=== PATIENT | male | born 1930 | race Caucasian/White ===

== ENCOUNTER 2016-12-01 01:03 | Inpatient (IN) ==
[2016-12-01] MEDS ORDERED: IOPAMIDOL 100 ML BOTTLE IV ONE (01:04)
[2016-12-01] MEDS ORDERED: 0.9 % SODIUM CHLORIDE 1,000 ML IV ONE (01:57)
[2016-12-01] MEDS ORDERED: HYDROmorphone 2 MG/ML SYRINGE IV PRN ×3 (01:59→07:21)
[2016-12-01] MEDS ORDERED: ONDANSETRON 4 MG/2 ML VIAL IV PRN ×2 (01:59→07:21)
--- NOTE | 2016-12-01 01:59 | Emergency Department Note ---
Fall HPI - General Chief Complaint: Fall Stated Complaint: fall Time Seen by Provider: 12/01/16 01:54 Source: family Mode of arrival: wheelchair - History of Present Illness HPI Narrative: Patient presents with family. Lives independently, usually cares for himself quite well. Seen 2 days ago after a fall, apparently tripped over some laundry at home, fall to his right shoulder. X-rays at that time unremarkable. Patient then found down by family, unclear length of time later in the day. Patient had vomited and may "quite a mess". Seemed less of himself, slightly confused, and generally weak. Symptoms have continued and family brings her in now, increasing right shoulder pain, generalized weakness, unable to care for himself. Review of systems, patient states slightly short of breath without chest pain. Nausea states "I don't want to eat anything and I feel dry". Denies pleurisy, fevers or chills. Denies abdominal pain. Per family seems to be very uncomfortable standing up with reports of pain diffusely but unable to localize. Family was particularly concerned today when his hands seemed cold and blue. No pain reported - Related Data Home Medications Medication Instructions Recorded Confirmed Allopurinol BID 08/29/15 08/29/15 Finasteride 5 mg PO DAILY 08/29/15 12/01/16 LORazepam 0.5 mg PO DAILY PRN 08/29/15 12/01/16 Mirtazapine 7.5 mg PO HS 08/29/15 12/01/16 Nifedipine ER 30 mg PO DAILY 08/29/15 12/01/16 Pradaxa 150 mg PO BID 08/29/15 12/01/16 Sertraline 75 mg PO DAILY 08/29/15 12/01/16 Sotalol 40 mg PO Q12 08/29/15 12/01/16 Allopurinol [Zyloprim] 100 mg PO BID 12/01/16 12/01/16 Cholecalciferol (Vitd3)/Vit K2 [D3 1 each PO DAILY 12/01/16 12/01/16 + K2 Dots 1,000 Units Tab] Secor-3/Dha/Epa/Fish Oil [Secor 3 12/01/16 500 Softgel] Vit A/Vit C/Vit E/Zinc/Copper 1 each PO DAILY 12/01/16 12/01/16 [Icaps Areds Softgel] Previous Rx's Medication Instructions Recorded HYDROcodone/APAP 5/325MG [[place] 1 tab PO Q4HP PRN #14 tablet 11/29/16 5/325Mg] Allergies Allergy/AdvReac Type Severity Reaction Status Date / Time No Known Drug Allergies Allergy Verified 11/29/16 10:08 Review of Systems All systems ED: reviewed and negative except as stated. Constitutional: Reports: weakness. Denies: fever, chills Eyes: Denies: eye discharge ENT ED: Denies: epistaxis Cardiovascular: Reports: dyspnea on exertion. Denies: chest pain, palpitations Respiratory: Denies: cough Gastrointestinal: Reports: nausea, vomiting. Denies: diarrhea Neurological: Reports: weakness, confusion, abnormal gait Fall PMH - Past Medical History Medical history: Reports: atrial fibrillation, other (chronic anticoagulation) Surgical history ED: Reports: non-contributory (unable to obtain) Family history: Reports: non-contributory - Social History smoking status: Never smoker Alcohol use: Reports: None Drug use: Reports: none Physical Exam - General General appearance: lethargic, other (weak, circumferential, unable to give complete history details) - Head Head exam: atraumatic, normocephalic - Eye Eye exam: Present: normal appearance, PERRL, EOMI - ENT ENT exam: mucous membranes dry - Neck Neck exam: Present: trachea midline, tenderness (tender base of skull). Absent : lymphadenopathy - Chest Chest inspection: Present: symmetric chest wall rise - Respiratory Respiratory exam: Present: normal lung sounds bilaterally. Absent: respiratory distress - Cardiovascular Cardiovascular exam: Present: regular rate, normal rhythm, other (very distant heart sounds). Absent: systolic murmur - Abdominal Exam Abdominal exam: Present: soft. Absent: tenderness, organomegaly - Extremities Exam Extremities exam: Present: normal inspection, other (enerally weak; significant pain external palpation right shoulder. Pain on range of motion both flexion and abduction and rotation right shoulder) - Back Exam Back exam: Present: other (significant kyphosis). Absent: CVA tenderness (R), CVA tenderness (L), paraspinal tenderness - Neurological Exam Neurological exam: Present: other (slowed motor and mentation) - Skin Skin exam: Present: other (cool hands, slow cap refill) Course - Reevaluation(s) Reevaluation #1: patient cooperative, no hypotension Time: 04:59 Vital Signs Temperature 97.8 F 12/01/16 01:04 Pulse Rate 86 12/01/16 01:04 Respiratory Rate 18 12/01/16 01:04 Blood Pressure 117/72 12/01/16 01:04 Pulse Oximetry (%) 94 12/01/16 01:04 Temperature 97.8 F 12/01/16 01:04 Pulse Rate 76 12/01/16 03:51 Respiratory Rate 18 12/01/16 03:51 Blood Pressure 114/79 12/01/16 03:51 Pulse Oximetry (%) 92 12/01/16 03:51 Fall - Medical Records Medical records reviewed: Yes I reviewed the patient's medical records. negative x-rays from 2 days ago - Lab Data Result diagrams: 12/01/16 02:00 12/01/16 02:00 Lab Results 12/01/16 12/01/16 12/01/16 Range/Units 02:00 02:00 02:00 WBC 22.5 H (4.5-11.0) K/mcL RBC 4.32 L (4.50-5.90) M/mcL Hgb 14.3 (13.5-16.5) g/dL Hct 44.1 (41.0-55.0) % POC Hct 43.0 (41.0-55.0) % MCV 102.1 H (80.0-100.0) fL MCH 33.2 (26.0-34.0) pg MCHC 32.5 (31.0-36.0) g/dL RDW 14.0 (11.5-14.5) % Plt Count 237 (140-440) K/mcL MPV 9.9 (7.4-10.4) fL Gran % 93.1 H (38.0-78.0) % Lymph % (Auto) 4.7 L (15.5-49.0) % [place] % (Auto) 2.2 (1.0-9.0) % Eos % (Auto) 0 (0.0-7.0) % Baso % (Auto) 0 (0.0-2.0) % Gran # 21.0 H (1.8-8.0) K/mcL Lymph # 1.1 L (1.5-4.8) K/mcL [place] # 0.5 (0.1-0.9) K/mcL Eos # 0 (0.0-0.7) K/mcL Baso # 0 (0.0-0.3) K/mcL PT (11.9-14.5) sec INR (0.9-1.1) VBG Lactic Acid 3.1 H (0.5-2.2) mmol/L POC Sodium 136 (133-145) mmol/L Sodium 135 (133-145) mmol/L POC Potassium 4.0 (3.3-5.1) mmol/L Potassium 3.9 (3.3-5.1) mmol/L POC Chloride 101 (96-108) mmol/L Chloride 97 (96-108) mmol/L Carbon Dioxide 22 (22-30) mmol/L POC Total CO2 22 (22-30) mmol/L Anion Gap 16.0 (8-16) POC BUN 66 H (8-23) mg/dl BUN 58 H (8-23) mg/dl Creatinine 1.6 H (0.7-1.2) mg/dl POC Creatinine 1.4 H (0.7-1.2) mg/dl GFR Calculation 38 Glucose 154 H (70-105) mg/dL POC Glucose 150 H (70-105) mg/dL Calcium 8.6 (8.6-10.4) mg/dl POC WB Ioniz Calcium 0.97 L (1.16-1.32) mmol/L Total Bilirubin 2.3 H (0.0-1.0) mg/dL AST 652 H (0-37) U/l ALT 591 H (0-40) U/l Alkaline Phosphatase 85 (39-117) U/L Total Protein 7.0 (5.9-8.4) gm/dL Albumin 3.1 L (3.2-5.2) gm/dL Globulin 3.9 H (2.2-3.7) gm/dL Albumin/Globulin Ratio 0.8 L (1.0-2.3) TSH 0.95 (0.27-5.01) uIU/ml 12/01/16 Range/Units 02:00 WBC (4.5-11.0) K/mcL RBC (4.50-5.90) M/mcL Hgb (13.5-16.5) g/dL Hct (41.0-55.0) % POC Hct (41.0-55.0) % MCV (80.0-100.0) fL MCH (26.0-34.0) pg MCHC (31.0-36.0) g/dL RDW (11.5-14.5) % Plt Count (140-440) K/mcL MPV (7.4-10.4) fL Gran % (38.0-78.0) % Lymph % (Auto) (15.5-49.0) % [place] % (Auto) (1.0-9.0) % Eos % (Auto) (0.0-7.0) % Baso % (Auto) (0.0-2.0) % Gran # (1.8-8.0) K/mcL Lymph # (1.5-4.8) K/mcL [place] # (0.1-0.9) K/mcL Eos # (0.0-0.7) K/mcL Baso # (0.0-0.3) K/mcL PT 27.1 H (11.9-14.5) sec INR 2.4 H (0.9-1.1) VBG Lactic Acid (0.5-2.2) mmol/L POC Sodium (133-145) mmol/L Sodium (133-145) mmol/L POC Potassium (3.3-5.1) mmol/L Potassium (3.3-5.1) mmol/L POC Chloride (96-108) mmol/L Chloride (96-108) mmol/L Carbon Dioxide (22-30) mmol/L POC Total CO2 (22-30) mmol/L Anion Gap (8-16) POC BUN (8-23) mg/dl BUN (8-23) mg/dl Creatinine (0.7-1.2) mg/dl POC Creatinine (0.7-1.2) mg/dl GFR Calculation Glucose (70-105) mg/dL POC Glucose (70-105) mg/dL Calcium (8.6-10.4) mg/dl POC WB Ioniz Calcium (1.16-1.32) mmol/L Total Bilirubin (0.0-1.0) mg/dL AST (0-37) U/l ALT (0-40) U/l Alkaline Phosphatase (39-117) U/L Total Protein (5.9-8.4) gm/dL Albumin (3.2-5.2) gm/dL Globulin (2.2-3.7) gm/dL Albumin/Globulin Ratio (1.0-2.3) TSH (0.27-5.01) uIU/ml - Radiology Data Radiology results reviewed: Yes I reviewed the patient's radiology results. extensive CTs performed due tofall, incomplete history, diffuse , pain on palpation C-spine, concurrent Pradaxa therapy Head CT with old right frontal infarct, o acute injury or finding C-spine normal Right shoulder with rotator cuff, chronic DJD, no acute fracture chest x-ray without fracture or injury, bibasilar pneumonia abdomen and pelvis without injury or acute pathology - EKG Data EKG attestation: Yes I reviewed and interpreted this EKG. Disposition Clinical Impression: Lactic acidosis, Acute delirium, Internal derangement of right shoulder Pneumonia Qualifiers: Pneumonia type: aspiration pneumonia Aspiration pneumonia type: unspecified Laterality: bilateral Lung location: lower lobe of lung Qualified Code(s): J69.0 - Pneumonitis due to inhalation of food and vomit Summary: antibiotics initiated for enterics; additional IV fluids due to elevated lactic acidosis Disposition: Xfer As Inpt ([facility]) Condition: Fair Referrals: Tashi Pitt MD [Primary Care Provider] -
[2016-12-01] MEDS ORDERED: DEXTROSE 5%-LR 1,000 ML IV SCH (02:00)
[2016-12-01 03:08] LABS: Basophils # (Auto) 0 K/mcL (0.0-0.3); Basophils % (Auto) 0 % (0.0-2.0); Eosinophils # (Auto) 0 K/mcL (0.0-0.7); Eosinophils % (Auto) 0 % (0.0-7.0); Granulocytes % (Auto) 93.1 % (38.0-78.0); Lymphocytes # (Auto) 1.1 K/mcL (1.5-4.8); Lymphocytes % (Auto) 4.7 % (15.5-49.0); Mean Cell Volume 102.1 fL (80.0-100.0); Mean Corpuscular HGB Conc 32.5 g/dL (31.0-36.0); Mean Corpuscular Hemoglobin 33.2 pg (26.0-34.0); Monocytes # (Auto) 0.5 K/mcL (0.1-0.9); Monocytes % (Auto) 2.2 % (1.0-9.0); Platelet Count 237 K/mcL (140-440); RBC 4.32 M/mcL (4.50-5.90)
[2016-12-01 03:14] LABS: ALT/SGPT 591 U/l (0-40); Albumin 3.1 gm/dL (3.2-5.2); Albumin/Globulin Ratio 0.8 (1.0-2.3); Alkaline Phosphatase 85 U/L (39-117); Blood Urea Nitrogen 58 mg/dl (8-23)
[2016-12-01] MEDS ORDERED: LEVOFLOXACIN 750 MG/150 ML BAG IV ONE (04:44)
[2016-12-01] MEDS ORDERED: 0.9 % SODIUM CHLORIDE 1,000 ML IV SCH (05:00)
[2016-12-01 05:24] LABS: Appearance,Urine HAZY; Bacteria,Urine 0 /hpf (0); Bilirubin,Urine NEG (NEG); Color,Urine BROWN; Glucose,Urine (UA) NEGATIVE (NEG); Leukocyte Esterase,Urine NEG /uL (NEG); Mucus,Urine MOD /hpf (0); Nitrate,Urine NEG (NEG); Protein,Urine 100 mg/dL (NEG); Specific Gravity,Urine 1.023 (1.000-1.035); Urine Blood >=1.0 mg/dL (<0.03); Urine Hyaline Cast 27 /lpf (0-2); Urine RBC > 182 /hpf (0-1); Urine Squamous Epithelial Cell 0 /hpf (0-4); Urine Transitional Epi Cells < 1 /hpf (0-2); Urine WBC 5 /hpf (0-4)
[2016-12-01] MEDS ORDERED: LORAZEPAM 0.5 MG PO PRN (05:46)
[2016-12-01] MEDS ORDERED: HYDROcodone/APAP 5/325MG TABLET PO PRN (05:46)
[2016-12-01] MEDS ORDERED: NALOXONE HCL 0.4 MG/ML VIAL IV PRN (07:21)
[2016-12-01] MEDS ORDERED: POTASSIUM CHLORIDE 20 MEQ in DEXTROSE 5%-1/2NS 1,000 ML IV SCH (07:21)
[2016-12-01] MEDS ORDERED: ACETAMINOPHEN 325 MG TABLET PO PRN (07:21)
[2016-12-01] MEDS ORDERED: LORazepam 0.5 MG TABLET PO PRN (07:39)
[2016-12-01] MEDS: 0.9 % SODIUM CHLORIDE 10 ML SYRINGE IV SCH ×3 (08:03→22:25)
[2016-12-01] MEDS: 0.9 % SODIUM CHLORIDE 1,000 ML IV SCH ×3 (08:04→15:21)
[2016-12-01 08:26] LABS: Estimated Average Glucose(eAG) 123 mg/dL; Hemoglobin A1C 5.9 % HGB (4.0-6.0)
[2016-12-01] MEDS: ALBUTEROL SULFATE 2.5 MG/3 ML NEBULIZER NEB SCH ×3 (08:32→19:22)
[2016-12-01 08:57] LABS: ALT/SGPT 480 U/l (0-40); Albumin 2.6 gm/dL (3.2-5.2); Albumin/Globulin Ratio 0.7 (1.0-2.3); Alkaline Phosphatase 71 U/L (39-117); Bilirubin,Direct 1.1 mg/dL (0.0-0.3); Blood Urea Nitrogen 53 mg/dl (8-23); Gamma Glutamyl Transpeptidase 28 U/L (8-61); Magnesium 2.3 mg/dL (1.6-2.5); Phosphorous 2.8 mg/dL (2.7-4.5); Uric Acid 6.1 mg/dL (2.5-8.0)
[2016-12-01] MEDS: PIPERACILLIN SODIUM/TAZOBACTAM 3.375 GM in DEXTROSE 5% IN WATER 50 ML IV SCH ×3 (08:59→17:29)
[2016-12-01] MEDS ORDERED: [UNRECOGNIZED DRUG - OTHER] PO SCH (09:00)
[2016-12-01] MEDS ORDERED: SERTRALINE 75 MG PO SCH (09:00)
[2016-12-01] MEDS ORDERED: COPPER PO SCH (09:00)
[2016-12-01] MEDS ORDERED: AZITHROMYCIN 500 MG in DEXTROSE 5% IN WATER 250 ML IV SCH ×2 (09:00→11:10)
[2016-12-01] MEDS ORDERED: VIT K2 PO SCH (09:00)
[2016-12-01] MEDS ORDERED: CHOLECALCIFEROL PO SCH (09:00)
[2016-12-01] MEDS ORDERED: ZINC PO SCH (09:00)
[2016-12-01] MEDS ORDERED: VIT A PO SCH (09:00)
[2016-12-01] MEDS ORDERED: SOTALOL PO SCH ×2 (09:00)
[2016-12-01] MEDS ORDERED: ALLOPURINOL 100 MG TABLET PO SCH (09:00)
[2016-12-01] MEDS ORDERED: PRADAXA 150 MG PO SCH (09:00)
[2016-12-01] MEDS ORDERED: VIT E PO SCH (09:00)
[2016-12-01] MEDS ORDERED: FINASTERIDE 5 MG PO SCH (09:00)
[2016-12-01] MEDS ORDERED: [UNRECOGNIZED DRUG - OTHER] PO SCH (09:00)
[2016-12-01] MEDS ORDERED: VIT C PO SCH (09:00)
[2016-12-01] MEDS: SERTRALINE 50 MG TABLET PO SCH (09:43)
[2016-12-01] MEDS: FAMOTIDINE/PF 20 MG/2 ML VIAL IV SCH ×2 (09:44→21:14)
[2016-12-01] MEDS: DABIGATRAN ETEXILATE MESYLATE 75 MG CAPSULE PO SCH ×2 (09:44→21:11)
[2016-12-01] MEDS: VIT A,C & E/LUTEIN/MINERALS TABLET PO SCH (09:44)
[2016-12-01] MEDS: ALLOPURINOL 100 MG TABLET PO SCH ×2 (09:44→21:13)
[2016-12-01] MEDS: FINASTERIDE 5 MG TABLET PO SCH (09:53)
[2016-12-01] MEDS: VITAMIN D3 1,000 UNIT TABLET PO SCH (10:00)
--- NOTE | 2016-12-01 10:06 | Internal Med History&Physical ---
Medical - H&P: HPI Patient information: Note initiated : 12/01/16 at 10:06 am Service Date, if different from initiated Date: [] Patient: Edson Calixto 86 y/o M admitted on 12/01/16 for Fall. Chief Complaint: [] History of present illness: Mr. Calixto is a 86 year old male who normally lives alone and cares for himself. He fell 2 days ago, and landed on his right shoulder, and was seen in our emergency room X-rays were negative, and he was sent back home. Yesterday his family stopped by to check on him, and found him on the floor. He said that he tried to sit down in a chair and thinks he tilted forward and then just was too weak to get up. He has been very thirsty. Family felt he was more confused than usual. ER evaluation showed elevated lactic acid, leukocytosis, acute renal failure, elevated LFTs, and chest x-ray consistent withbilateral pneumonia. The patient reports that he was carrying in some things for his 2 days ago , and thinks he just tripped over the back and fell down. Prior to that he said he had been started on prednisonefor complaints of joint pain, as his doctor thought he might of had an acute gout flare. He otherwise denies recent fever or chills headaches or dizziness, new eye or ear symptoms, sore throat or cough. e quite adamantly denies any recent chest discomfort, heaviness, palpitations, shortness of breath or wheezing. He denies abdominal pain. He did deny nausea or vomiting or diarrhea,but his family reported to the ER that he had vomited when they found him yesterday. he is reporting significant pain in his right shoulder and his left hand and also his low back. He denies diarrhea or constipation or dysuria. past medical history: we don't appear to have much in our computer system on his old records. He reports a past history of a small stroke, and also an arrhythmia for which she required a pacemaker. he takes anticoagulants for reported history of atrial fibrillation. He is treated for depression with sertraline, although he is uncertain as to why. He says he takes mirtazapine at night to help him sleep. he likely has BPH He presumably has a history of gout. Current medications: fish oil 500 mg twice a day Vitamin D 1000 units daily Ativan 0.5 mg daily when necessary Pradaxa 150 mg twice a day Nifedipine ER 30 mg daily Sertraline 75 mg daily Proscar 5 mg daily Betapace 40 mg by mouth twice a day Mirtazapine 7.5 mg daily at bedtime [place] 5/325 one every 4 hours when necessary I vitamins one daily Allopurinol 100 mg twice a day Reported recent steroid pulse for gout. allergies: No known drug allergies. family history: His mother lived to be 94, and he does not recallmedical problems. His father after a farming accident. History of her siblings are alive and well. Social history:The patient's has dementia and lives in a nursing facility. He does not use tobacco, alcohol, drugs. He reports he has 5 children. His daughter that has his POA should arrive tomorrow. He says he does have a living will and that he wants to be a DNR candidate. Medical - H&P: Meds Home Medications Medication Instructions Recorded Confirmed Type Allopurinol [Zyloprim] 100 mg PO BID 12/01/16 12/01/16 History Dabigatran Etexilate Mesylate 150 mg PO BID 12/01/16 12/01/16 History [Pradaxa] Finasteride [Proscar] 5 mg PO DAILY 12/01/16 12/01/16 History LORazepam [Ativan] 0.5 mg PO DAILYP PRN 12/01/16 12/01/16 History Mirtazapine [Remeron] 7.5 mg PO HS 12/01/16 12/01/16 History NIFEdipine [Nifedipine ER] 30 mg PO DAILY 12/01/16 12/01/16 History Lyle-3/Dha/Epa/Fish Oil [[place] 3 1 cap PO BID 12/01/16 12/01/16 History 500 Softgel] Sertraline [Zoloft] 75 mg PO DAILY 12/01/16 12/01/16 History Sotalol [Betapace] 40 mg PO BID 12/01/16 12/01/16 History Vit A/Vit C/Vit E/Zinc/Copper 1 each PO DAILY 12/01/16 12/01/16 History [Icaps Areds Softgel] Vitamin D3 1,000 unit PO DAILY 12/01/16 12/01/16 History Allergies Allergy/AdvReac Type Severity Reaction Status Date / Time No Known Drug Allergies Allergy Verified 11/29/16 10:08 Medical - H&P: Exam - Constitutional Vitals: Temp Pulse Resp BP Pulse Ox 98.3 F 71 16 120/75 90 12/01/16 08:58 12/01/16 08:58 12/01/16 08:58 12/01/16 08:58 12/01/16 08:58 Exam: n exam,he is a pleasant elderly man. He currently appears alert and oriented. Head: Normocephalic, atraumatic. Ears: He has bilateral cerumen which makes the TM difficult to see. Eyes: PERRLA, EOMI, anicteric. pharynx: Mucosa is markedly dry. Posterior pharynx appears normal. neck: Appears supple, without obvious lymphadenopathy, JVD, thyromegaly, bruits. Cardiac exam:chest regular rate and rhythm, without obvious murmurs, rubs, gallops. lungs:Have decreased breath sounds at the bases, but otherwise are clear, without rales, rhonchi, wheezes. Abdomen: Soft and nontender with no obvious masses. Bowel sounds are active. Extremities: Show trace edema just at the ankles without cyanosis, clubbing. Neurologic: Is grossly nonfocal. Patient appears alert and oriented, and answers most questions appropriately. Skin exam: Shows no rashes or other worrisome skin lesions. Medical - H&P: Reslt - Labs CBC & Chem 7: 12/01/16 02:00 12/01/16 07:25 Labs: BMP 12/01/16 07:25 Sodium 134 Potassium 3.7 Chloride 98 Carbon Dioxide 23 BUN 53 H Creatinine 1.3 H Glucose 214 H Calcium 8.3 L Cardiac Enzymes 12/01/16 Range/Units 07:25 Troponin T 0.18 H* (0-0.03) ng/ml Liver Function 12/01/16 Range/Units 07:25 Total Bilirubin 1.9 H (0.0-1.0) mg/dL Direct Bilirubin 1.1 H (0.0-0.3) mg/dL GGT 28 (8-61) U/L AST 461 H (0-37) U/l ALT 480 H (0-40) U/l Alkaline Phosphatase 71 (39-117) U/L Albumin 2.6 L (3.2-5.2) gm/dL cBC differential shows 93% granulocytes, with 21,000 absolute neutrophil count Pro time is 27, with INR of 2.4 Lactic acid is elevated at 3.1, with follow-up lactic acid of 2.9. BNP is elevated at 19,955 EKG shows sinus rhythm, and is probably paced with underlying atrial flutter.there is no old tracing to compare. cT scan of the shoulder shows no acute fracture but does show a small remote avulsion fracture of the clavicle tip. There is mild subluxation of the before meals joint which is likely chronic. There is probablechronic rotator cuff tear , as well as severe glenohumeral and AC degeneration. cT scan of the chest, abdomen, pelvis, is verbally reported as unremarkable. CT scan of the brain shows no hemorrhage, but does show mild atrophy and chronic ischemic changes. There is also a remote infarct in the left frontal lobe about 1 cm in size, as well as right frontal lobe remote infarct and remote infarct of the right superior cerebellum. There is severe bilateral maxillary and ethmoid sinusitis cT scan of the neck shows no definite acute fractures, but does show C6-7 spondylolisthesis. Also noted is an 11 mm nodule arising from the right inferior thyroid lobe, likely a benign adenoma. Medical - H&P: A/P (1) History of CVA (cerebrovascular accident) without residual deficits Current visit: Yes Status: Acute (2) ARF (acute renal failure) Current visit: Yes Status: Acute (3) Dehydration Current visit: Yes Status: Acute (4) Atrial fibrillation and flutter Current visit: Yes Status: Acute (5) Sinusitis Current visit: Yes Status: Acute (6) Acute delirium Current visit: Yes Status: Acute (7) Lactic acidosis Current visit: Yes Status: Acute (8) Pneumonia Current visit: Yes Status: Acute (9) Shoulder sprain Current visit: No Status: Acute .#1. Infectious disease. this patient presents with sores syndrome, with leukocytosis, acute renal failure, lactic acidosis, and altered mental status. Sore seems to be most likelybilateral pneumonia, reportedly seen on chest CT. -the patient has been admitted to ICU, to continue aggressive IV fluids and empiric antibiotics. Blood and sputum cultures are pending. -he reports he did receive both a flu shot and a Pneumovax recently. -head CT suggests bilateral sinusitis. IV antibiotic should help with this. #2. Cardiac. -Although the patient denies any specific heart symptoms,he does present with elevated troponin and BNP. I discussed this case briefly with Dr. Dunham of cardiology at [facility]. He did not feel, since the patient was not having overt cardiac symptoms,that this was a recent transfer. He suggested we continue to monitor, and check an echocardiogram. -patient appears to also have a history of atrial fibrillation, and continues on pradaxa, and sotalol #3.pulmonary. -The patient is oxygenating well, and does not really report much in the way of pulmonary symptoms. #4. Neurologic. The patient denies any neurologic symptoms, other than progressive generalized weakness over the last day or so. He does have remote strokes on his head CT, and does continue on pyridoxine, for his underlying atrial fib/flutter. #5. CODE STATUS: The patient reports he would like to have a no CODE STATUS. He says his daughter who is his POA, should arrive tomorrow. He does have a living will. #6. DVT prophylaxis: Continue Pradaxa. #7. Shoulder pain, status post fall. Visible therapy evaluation. #8. dehydration. Continue IV fluids #9.GI. Family reported an episode of emesis, but the patientdoes not recall this. We will continue to follow. #10. Acute renal failure, presumably due to dehydration. Follow with hydration. #11. Presumed history of depression. Continue sertraline. I will hold mirtazapine until we are sure he is quite alert. This visit has taken approximately 75 minutes of far today, to review the patient's records, review his case with the ER M.DKrys, interview and examine him, write orders, and review his case with cardiology. Medical - H&P: Qual - Stroke Symptom Onset Unknown: No - VTE Deep Vein Thrombosis/Pulmonary Embolism Present on Admission: No
--- NOTE | 2016-12-01 11:05 | Cat Scan Report ---
CLINICAL INFORMATION: Trauma COMPARISON: Plain films 11/29/2016. TECHNIQUE: 1.25 helical slices were obtained of the right shoulder. Following reconstruction, sagittal, coronal axial reformatted images were processed and reviewed in bone and soft tissue windows FINDINGS: There is a small remote avulsion fracture of the lateral clavicle - it is minimally displaced. No acute definite fracture. Mild subluxation of the acromioclavicular joint is noted. There is also 2 cm superior subluxation of the humeral head suggesting rotator cuff tear/impingement. This is typically seen in this age group and often chronic. Severe degenerative change is noted in the glenohumeral joint. Small effusion present in the glenohumeral joint and the subacromial bursa. Soft tissues are otherwise normal. IMPRESSION: 1. No acute fracture - small remote avulsion fracture of the clavicle tip. 2. Mild subluxation acromioclavicular joint - likely chronic 3. Moderate subluxation of the glenohumeral joint typically due to rotator cuff tear and impingement. This is commonly seen in this age group and was likely not the result of recent trauma 4. Severe glenohumeral and moderate acromioclavicular degeneration Interpreted and Authenticated by: Hugh Hatch 12/01/16
--- NOTE | 2016-12-01 11:12 | Cat Scan Report ---
CLINICAL INFORMATION: Trauma COMPARISON: None. TECHNIQUE: 2.5 mm helical slices were obtained from the skull base through the superior T2 end plate, and 1.25 mm reconstructions were obtained. 2.5 mm sagittal, coronal and axial reformations were then processed. The exam was reviewed at bone, soft tissue algorithm/window. FINDINGS: The sagittal reformatted images show 3 mm of C6 anterior subluxation due to degenerative facet disease. Remainder of the cervical spine is anatomically aligned. There is a small remote-appearing avulsion fracture off the anterior superior corner of the C7 vertebral body. No definite acute fracture. 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 Moderate degenerative changes noted in C4-5 through C7-T1 facets. The cervical cord is normal in contour/caliber without evidence of hemorrhage. Soft tissues are noted for mild heavy calcification in the region of both carotid bifurcation, 11 mm nodule adjacent to, or arising from, the inferior right thyroid lobe The C2-3 disc level is normal. At C3-4, a small central partially calcified disc protrusion minimally impinges the thecal sac At C4-5, moderate broad calcified disc spur complex results in mild central canal, moderate left lateral recess/IV foraminal and moderate right lateral recess/IV foraminal narrowing. At C5-C6, mild broad disc spur complex with left-sided asymmetry results in mild central canal and mild bilateral lateral recess narrowing At C6-7, mild broad broad disc spur complex results in mild central canal right lateral recess narrowing. IMPRESSION: 1. No definite acute fracture. A small remote-appearing avulsion fracture off the anterior superior corner of the C7 vertebral body is only minimally displaced. Consider flexion-extension plain films to ensure normal movement at this level 2. 3 mm the C6 anterior subluxation compatible with grade 1 C6-7 spondylolisthesis. This is likely due to degenerative facet disease. Again, flexion-extension lateral views will be helpful in determining excessive motion at this level 3. Multilevel degenerative change 4. 11 mm well-circumscribed nodule arising from, or adjacent to the inferior right thyroid lobe. It is likely a benign adenoma. Consider 6 month follow ultrasound (only if clinically indicated in this elderly man) Interpreted and Authenticated by: Hugh Hatch 12/01/16
--- NOTE | 2016-12-01 11:18 | Cat Scan Report ---
CLINICAL INFORMATION: Trauma COMPARISON: Sinus CT from 03/21/2014 which included the posterior fossa structures TECHNIQUE: 2.5 mm helical slices were obtained in the skull base to vertex. Following reconstruction, axial reformatted images were reviewed at bone and parenchymal windows. FINDINGS: The ventricles, sulci, fissures, and cisterns are symmetrically enlarged compatible with mild age-related atrophy - there is no subdural hemorrhage or other extra-axial fluid collection appreciated. Moderate size remote cortical-based infarct in the left frontal lobe and 1 cm deep white matter infarct in the right frontal lobe are both noted. A large remote infarct of the right superior cerebellum was seen on the previous study as well. There is no intracerebral hemorrhage, mass effect, edema or other acute posttraumatic change. Severe bilateral maxillary sinusitis is noted. Left-sided changes are chronic, however the right inflammation is new There is subtotal opacification of the ethmoid and frontal sinuses which has progressed. IMPRESSION: 1. There is no intracerebral hemorrhage or other acute posttraumatic change 2. Mild atrophy and chronic ischemic changes in the cerebral white matter - typical for age 3. Moderate size remote cortical-based infarct in the left frontal lobe, 1 cm remote infarct in the deep white matter of the right frontal lobe and large remote infarct of the right superior cerebellum 4. Severe bilateral maxillary and ethmoid sinusitis. Moderate bifrontal sinusitis. 5. Moderate cerumen within both external auditory canals Interpreted and Authenticated by: Hugh Hatch 12/01/16
[2016-12-01 12:15] LABS: Creatine Kinase MB 7.8 ng/ml (0-4.9)
[2016-12-01 12:23] LABS: Creatine Kinase 1530 IU/L (24-195)
[2016-12-01] MEDS ORDERED: VANCOMYCIN PER PHARMACY IV ONE (14:13)
[2016-12-01] MEDS: DEXTROSE 5%-1/2NS W/20MEQ KCL 1,000 ML IV SCH (14:34)
[2016-12-01] MEDS: VANCOMYCIN 1,250 MG in 0.9 % SODIUM CHLORIDE 500 ML IV SCH (14:39)
--- NOTE | 2016-12-01 15:02 | Cat Scan Report ---
CLINICAL INFORMATION: Trauma - on anticoagulant COMPARISON: Abdomen and pelvic CT from 02/06/2011. No prior chest CTs. TECHNIQUE: Enteric contrast was utilized. 80 cc of Isovue-300 were injected intravenously, and 50 seconds later 2.5 mm helical slices were obtained from the lung apices through the subtrochanteric regions of the femurs. Following reconstruction, 2.5 mm sagittal, coronal and axial reformatted images were processed and reviewed at multiple windows and levels. 7 mm MIP reconstructions were obtained through the lungs to optimize nodule detection. FINDINGS: Pulmonary parenchymal windows show mild elevation in lung volumes with bronchial wall thickening suggestive of mild chronic bronchitis. There is mild patchy mixed interstitial/alveolar infiltrates in both posterior lower and upper lobes. Consider aspiration. Small bilateral pleural effusions are noted. No evidence of pulmonary hemorrhage. Mediastinal windows show marked cardiomegaly with dual-chamber pacemaker leads in satisfactory position. Calcific plaque noted in the coronary arteries. There is no adenopathy in the mediastinal, hilar or axillary regions. There is no evidence of mediastinal hemorrhage. The thoracic esophagus is normal. Thyroid is unremarkable. Images should the abdomen show the gallbladder and bile ducts, liver, both adrenal glands, and spleen normal. Both kidneys are normal in size. A achalasia are simple cyst in the superior pole the left kidney is unchanged. Santorini pancreatic duct is markedly dilated - 15 mm diameter. There also scattered ductal and periductal calcifications. A 13 mm cystic lesion in the pancreatic tail which may represent ballooned expansion of the terminal portion of the duct. There is also an 8 mm calcification within the pancreatic head, near wirsung duct and multiple other smaller pancreatic head calcifications. 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 The bones and soft tissues of the chest abdomen and pelvis are unremarkable - no fractures appreciated. 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 The SMA, renal and KATE arteries are widely patent. Both common internal/external iliac arteries are also widely patent. Images should the pelvis show mild prostate enlargement which is stable: 5.2 by 4.2 cm. There is a 3 cm diverticulum projecting the posterior urinary bladder dome containing 3 stones ranging up to 14 mm. Multiple sigmoid diverticuli noted, but no significant diverticulitis. The remainder of the colon, including the appendix, small bowel stomach are normal. IMPRESSION: 1. No acute posttraumatic change throughout the chest, abdomen or pelvis 2. Moderate dilatation of the pancreatic duct with multiple periductal calcifications. 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 Atypical chronic pancreatitis would be possible, but less likely. Consider: Abdominal MRI/MRCP. No adenopathy or metastases. These are considered slow growing, indolent tumors - often clinically inconsequential in advanced age patients. 3. Moderate sized patchy mixed alveolar/interstitial infiltrates in both posterior upper and lower lobes and small bilateral pleural effusions. Consider aspiration 4. 3 cm diverticulum from the posterior bladder base containing 3 stones ranging up to 15 mm. 5. 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 The other aortic branches including the SMA and KATE are widely patent. Interpreted and Authenticated by: Hugh Hatch 12/01/16
[2016-12-01] MEDS: HYDROcodone/APAP 5/325MG TABLET PO PRN (16:00)
[2016-12-01] MEDS ORDERED: SENNOSIDES 1 TABLET PO PRN (21:00)
[2016-12-01] MEDS: SOTALOL 80 MG TABLET PO SCH (21:13)
[2016-12-02] MEDS: PIPERACILLIN SODIUM/TAZOBACTAM 3.375 GM in DEXTROSE 5% IN WATER 50 ML IV SCH ×5 (00:25→23:41)
[2016-12-02] MEDS: DEXTROSE 5%-1/2NS W/20MEQ KCL 1,000 ML IV SCH ×2 (00:35→12:24)
[2016-12-02] MEDS: ALBUTEROL SULFATE 2.5 MG/3 ML NEBULIZER NEB SCH ×4 (00:35→19:39)
[2016-12-02] MEDS: 0.9 % SODIUM CHLORIDE 1,000 ML IV SCH (05:06)
[2016-12-02 05:22] LABS: Basophils # (Auto) 0 K/mcL (0.0-0.3); Basophils % (Auto) 0 % (0.0-2.0); Eosinophils # (Auto) 0.1 K/mcL (0.0-0.7); Eosinophils % (Auto) 0.7 % (0.0-7.0); Granulocytes % (Auto) 92.9 % (38.0-78.0); Lymphocytes # (Auto) 0.9 K/mcL (1.5-4.8); Lymphocytes % (Auto) 4.6 % (15.5-49.0); Mean Cell Volume 102.6 fL (80.0-100.0); Mean Corpuscular HGB Conc 31.8 g/dL (31.0-36.0); Mean Corpuscular Hemoglobin 32.6 pg (26.0-34.0); Monocytes # (Auto) 0.4 K/mcL (0.1-0.9); Monocytes % (Auto) 1.8 % (1.0-9.0); Platelet Count 219 K/mcL (140-440); RBC 3.91 M/mcL (4.50-5.90); Red Cell Distribution Width 14.2 % (11.5-14.5)
[2016-12-02] MEDS: 0.9 % SODIUM CHLORIDE 10 ML SYRINGE IV SCH ×3 (05:36→20:19)
[2016-12-02 05:43] LABS: ALT/SGPT 456 U/l (0-40); Albumin 2.5 gm/dL (3.2-5.2); Albumin/Globulin Ratio 0.7 (1.0-2.3); Alkaline Phosphatase 77 U/L (39-117); Blood Urea Nitrogen 39 mg/dl (8-23); Gamma Glutamyl Transpeptidase 30 U/L (8-61); Magnesium 2.3 mg/dL (1.6-2.5); Phosphorous 1.7 mg/dL (2.7-4.5); Uric Acid 3.4 mg/dL (2.5-8.0)
--- NOTE | 2016-12-02 08:37 | Echocardiogram Report ---
ECHOCARDIOGRAM: 2-D and M-mode echocardiography with cardiac Doppler and color flow imaging were performed with a [employer] Aplio MX. Indication is troponin T 0.18/LBBB. All four chambers appeared mildly enlarged. LV wall thickness appeared normal. The anterolateral and posterolateral faria appeared to contract near normally. The other LV segments appeared severely hypokinetic to akinetic. Overall LV systolic performance appeared severely depressed. Estimated ejection fraction is 25%. A density along the apical endocardium suggesting possible flat thrombus was appreciated. Aortic root diameter appeared mildly increased, 3.9 cm. The aortic valve appeared trileaflet and normal for age. There was no evidence for aortic stenosis by Doppler interrogation. Aortic regurgitation, probably moderate (2+), was demonstrated. The mitral and tricuspid valves appeared unremarkable. Doppler interrogation of LV inflow disclosed a so-called restrictive pattern as can be seen with heart failure. Mitral regurgitation, probably mild (1+), was noted. Pulmonary venous interrogation disclosed 'd' wave dominance indicating elevated pulmonary wedge pressure. The pulmonic valve was not visualized. Pulmonary artery acceleration time appeared shortened. There was no evidence for pulmonic stenosis. Pulmonic regurgitation, probably trivial, and tricuspid regurgitation, probably mild (1+), were noted. No intracardiac shunting was appreciated. There was no evidence for pericardial effusion. The IVC was dilated and did not vary with the respiratory cycle indicating raised CVP. Calculated estimate of PA systolic pressure is mildly elevated at 45 mmHg. A regular wide QRS rhythm, rate 68, was present. CONCLUSION:Mild aortic root dilatation/aortic regurgitation, probably moderate (2+). 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 (See accompanying M-mode and Doppler reports for quantitation.) ECHOCARDIOGRAPHY M-MODE CALCULATIONS: HT: 70 WT: 189 BSA: 2.04 m2 NORMALS AORTA: AORTIC ROOT 3.9 2.0-3.7 cm LEFT ATRIUM 4.2 1.9-4.0 cm MITRAL VALVE: EXCURSION 2.5 1.9-2.7 cm EPSS 1.5 <0.5 cm LT VENTRICLE: LVID (ED) 6.0 3.5-5.7 cm LVID (ES) 5.1 SEPTAL THICKNESS 1.0 0.6-1.1 cm SEPTAL EXCURSION -- 0.3-0.8 cm LVPW THICKNESS 1.1 0.6-1.1 cm LVPW EXCURSION 1.1 0.9-1.4 cm MINOR AXIS FS 1.5 25%-40% RT VENTRICLE: RVID (ED) -- 0.9-2.6 cm(up to 3cm if LLD) QUALITATIVE DOPPLER FLOW STUDIES MITRAL VALVE MR, probably mild (1+) AORTIC VALVE AR, probably moderate (2+) TRICUSPID VALVE TR, probably mild (1+) PULMONIC VALVE VT, probably trivial QUANTITATIVE DOPPLER FLOW STUDIES SAMPLE SITES VELOCITIES PEAK PRESSURE VALVE AREA and/or VALVE WINDOW (PEAK,M/SEC) DROP (GRADIENT) PRESSURE HALF-TIME MV (Diastole) 1.0 -- -- MV (Systole) 4.0 -- -- AO (Diastole) 3.0 -- 410 msec AO (Systole) 1.1 -- -- TV (Systole) 2.5 -- -- PV (Systole) 0.6 -- -- PV (Diastole) 0.9 DAJA:becki Job ID: [id number] Doc ID: [id number] Rogelio Pearson MD
[2016-12-02] MEDS: SERTRALINE 50 MG TABLET PO SCH (09:22)
[2016-12-02] MEDS: ALLOPURINOL 100 MG TABLET PO SCH ×2 (09:22→20:17)
[2016-12-02] MEDS: DOCUSATE SODIUM 100 MG CAPSULE PO PRN (09:23)
[2016-12-02] MEDS: VITAMIN D3 1,000 UNIT TABLET PO SCH (09:23)
[2016-12-02] MEDS: FAMOTIDINE/PF 20 MG/2 ML VIAL IV SCH ×2 (09:23→20:18)
[2016-12-02] MEDS: FINASTERIDE 5 MG TABLET PO SCH (09:23)
[2016-12-02] MEDS: VANCOMYCIN 1,250 MG in 0.9 % SODIUM CHLORIDE 500 ML IV SCH (09:24)
[2016-12-02] MEDS: DABIGATRAN ETEXILATE MESYLATE 75 MG CAPSULE PO SCH ×2 (09:24→20:19)
[2016-12-02] MEDS: SOTALOL 80 MG TABLET PO SCH (09:24)
[2016-12-02] MEDS: VIT A,C & E/LUTEIN/MINERALS TABLET PO SCH (09:24)
[2016-12-02] MEDS ORDERED: DEXTROSE 5%-1/2NS W/20MEQ KCL 1,000 ML IV SCH (10:30)
--- NOTE | 2016-12-02 10:31 | Internal Med Progress Note ---
Medical - PN: Subj Patient information: Note initiated : 12/02/16 at 10:31 am Service Date, if different from initiated Date: [] Patient: Edson Calixto 86 y/o M admitted on 12/01/16 for Fall. Chief Complaint: [] Interval history: December 01, 2016: History of present illness:Mr. Calixto is a 86 year old male who normally lives alone and cares for himself. He fell 2 days ago, and landed on his right shoulder, and was seen in our emergency room X-rays were negative , and he was sent back home. Yesterday his family stopped by to check on him, and found him on the floor. He said that he tried to sit down in a chair and thinks he tilted forward and then just was too weak to get up. He has been very thirsty. Family felt he was more confused than usual. ER evaluation showed elevated lactic acid, leukocytosis, acute renal failure, elevated LFTs, and chest x-ray consistent withbilateral pneumonia. The patient reports that he was carrying in some things for his 2 days ago , and thinks he just tripped over the back and fell down. Prior to that he said he had been started on prednisone for complaints of joint pain, as his doctor thought he might of had an acute gout flare. He otherwise denies recent fever or chills headaches or dizziness, new eye or ear symptoms, sore throat or cough. e quite adamantly denies any recent chest discomfort, heaviness, palpitations, shortness of breath or wheezing. December 02, 2016: Yesterday, the patient's troponin came back positive. This was reviewed with cardiology at [facility], but he did not seem interested in having the patient transferred over. He did suggest that we check a follow-up echocardiogram. echocardiogram shows severe LV dysfunction with an ejection fraction of 25%. The patient continues to deny any recent history of chest pain or shortness of breath. He does complain of left arm pain, but has had fairly persistent complaints of left wrist and arm and elbow pain since a fall a couple of days ago and his daughter reports today that he has a bruise over his elbow that he did not used to have. The patient notes he continues to have pain in his left wrist and elbow and a bit in his right wrist as well as his right shoulder. Otherwise, he says he overall is feeling better. He denies fever or chills, chest pain or palpitations, shortness of breath or significant cough. He denies abdominal pain , nausea or vomiting, diarrhea, dysuria. - Constitutional Vitals: Vital Signs Temp Pulse Resp BP Pulse Ox 98.3 F 70 14 105/92 95 12/02/16 08:00 12/02/16 08:00 12/02/16 08:00 12/02/16 08:00 12/02/16 08:00 Period Temp Pulse Resp BP Sys/Jerez Pulse Ox Last 24 Hr 98.1 F-99.4 F 67-73 13-29 105-141/66-99 90-99 Intake and Output 12/01/16 12/02/16 12/02/16 21:59 05:59 13:59 Intake Total 1036 / 1036 1697 / 1697 50 / 50 Output Total 450 / 450 475 / 475 Balance 586 / 586 1222 / 1222 50 / 50 Weight 195 lb 8 oz Intake & Output: Intake & Output 12/01/16 12/02/16 12/02/16 21:59 05:59 13:59 Intake Total 1036 / 1036 1697 / 1697 50 / 50 Output Total 450 / 450 475 / 475 Balance 586 / 586 1222 / 1222 50 / 50 Weight 195 lb 8 oz Intake: IV 796 / 796 1677 / 1677 50 / 50 Sodium Chloride 0.9% 1, 408 / 408 000 ml @ 250 mls/hr IV . Q4H GRIS Rx#:[id number] Dextrose 5%-1/2Ns W/20Meq 1627 / 1627 0 / 0 KCl 1,000 ml @ 125 mls/ hr IV Q8H GRIS Rx#: [id number] Dextrose 5% in Water 50 50 / 50 50 / 50 50 / 50 ml @ 100 mls/hr IV Q6 GRIS with Zosyn 3.375 gm Rx#: [id number] Sodium Chloride 0.9% 500 338 / 338 0 / 0 ml @ 333.3 mls/hr IV DAILY GRIS with Vancomycin 1,250 mg Rx#:[id number] Oral 240 / 240 20 / 20 Output: Void Amount 450 / 450 475 / 475 Other: Meal Dinner Percent of Meal Consumed 25% # Bowel Movements 0 Exam: on exam, he is an elderly man, who is in no acute distress. his daughter is here with him today. neck is supple without obvious lymphadenopathy or JVD. Cardiac exam shows regular rate and rhythm. EKG yesterday did show likely underlying atrial flutter, but rhythm is paced. Lungs: Still show scattered crackles bilaterally, but no significant rhonchi or wheezing. There is no sensory muscle use. Abdomen soft and nontender without obvious masses. Extremities: Show a trace pitting edema. Neurologic: s grossly nonfocal. Patient appears alert and oriented. Medical - PN: Obj Da - Labs CBC & Chem 7: 12/02/16 04:37 12/02/16 04:30 Labs: Abnormal Lab Results 12/02/16 12/02/16 12/01/16 04:37 04:30 11:08 WBC 20.5 H RBC 3.91 L Hgb 12.8 L Hct 40.1 L MCV 102.6 H Gran % 92.9 H Lymph % (Auto) 4.6 L Gran # 19.1 H Lymph # 0.9 L VBG Lactic Acid BUN 39 H Creatinine Glucose 152 H Calcium 8.1 L Phosphorus 1.7 L Total Bilirubin 1.7 H Direct Bilirubin 1.0 H AST 370 H ALT 456 H Lactate Dehydrogenase 382 H Total Creatine Kinase 1530 H CK-MB (CK-2) 7.8 H Troponin T NT-Pro-B Natriuret Pep Albumin 2.5 L Albumin/Globulin Ratio 0.7 L 12/01/16 12/01/16 12/01/16 11:08 10:58 07:25 WBC RBC Hgb Hct MCV Gran % Lymph % (Auto) Gran # Lymph # VBG Lactic Acid 2.9 H BUN Creatinine Glucose Calcium Phosphorus Total Bilirubin Direct Bilirubin AST ALT Lactate Dehydrogenase Total Creatine Kinase CK-MB (CK-2) Troponin T 13 H NT-Pro-B Natriuret Pep 54624.0 Albumin Albumin/Globulin Ratio 12/01/16 12/01/16 07:25 07:25 WBC RBC Hgb Hct MCV Gran % Lymph % (Auto) Gran # Lymph # VBG Lactic Acid BUN 53 H Creatinine 1.3 H Glucose 214 H Calcium 8.3 L Phosphorus Total Bilirubin 1.9 H Direct Bilirubin 1.1 H AST 461 H ALT 480 H Lactate Dehydrogenase 320 H Total Creatine Kinase CK-MB (CK-2) Troponin T 0.18 H* NT-Pro-B Natriuret Pep Albumin 2.6 L Albumin/Globulin Ratio 0.7 L blood cultures are growing Streptococcus beta follow-up chest x-rays pending echocardiogram from December 01, 2016;There is 4 chamber enlargement. Overall left ventricular systolic performance is severely depressed with ejection fraction of 25%. There is a density along the apical endocardiumsuggesting possible flat thrombus. There is mild mitral regurgitation and elevated pulmonary wedge pressure likely due to passive pulmonary congestion. December 01, 2016: -Lactic acid is elevated at 3.1, with follow-up lactic acid of 2.9. -BNP is elevated at 19,955 -EKG shows sinus rhythm, and is probably paced with underlying atrial flutter.there is no old tracing to compare. -cT scan of the shoulder shows no acute fracture but does show a small remote avulsion fracture of the clavicle tip. There is mild subluxation of the before meals joint which is likely chronic. There is probablechronic rotator cuff tear , as well as severe glenohumeral and AC degeneration. -cT scan of the chest, abdomen, pelvis: Shows mild pancreatic duct dilation. 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 Moderate patchy alveolar infiltrates in both posterior upper and lower lobes with bilateral effusions. 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 -CT scan of the brain shows no hemorrhage, but does show mild atrophy and chronic ischemic changes. There is also a remote infarct in the left frontal lobe about 1 cm in size, as well as right frontal lobe remote infarct and remote infarct of the right superior cerebellum. There is severe bilateral maxillary and ethmoid sinusitis -cT scan of the neck shows no definite acute fractures, but does show C6-7 spondylolisthesis. Also noted is an 11 mm nodule arising from the right inferior thyroid lobe, likely a benign adenoma. Meds: Medications Acetaminophen (Tylenol) 650 mg PO Q8 [facility] Acetaminophen/Hydrocodone Bitart ([place] 5/325mg) 1 tab PO Q4HP PRN PRN Reason: Pain Last Admin: 12/01/16 16:00 Dose: 1 tab Albuterol Sulfate (Ventolin) 2.5 mg NEB Q6HRT [facility] Last Admin: 12/02/16 07:18 Dose: 2.5 mg Allopurinol (Zyloprim) 100 mg PO BID [facility] Last Admin: 12/02/16 09:22 Dose: 100 mg Dabigatran (Pradaxa) 150 mg PO BID [facility] Last Admin: 12/02/16 09:24 Dose: 150 mg Docusate Sodium (Colace) 100 mg PO BID PRN PRN Reason: Constipation Last Admin: 12/02/16 09:23 Dose: 100 mg Famotidine (Pepcid) 20 mg IV Q12 [facility] Last Admin: 12/02/16 09:23 Dose: 20 mg Finasteride (Proscar) 5 mg PO DAILY [facility] Last Admin: 12/02/16 09:23 Dose: 5 mg Hydromorphone HCl (Dilaudid) 0.5 mg IV Q1HP PRN PRN Reason: Pain Piperacillin Sod/Tazobactam (Sod 3.375 gm/ Dextrose) 50 mls @ 100 mls/hr IV Q6 [facility] Last Infusion: 12/02/16 06:19 Dose: Infused Vancomycin HCl 1,250 mg/ (Sodium Chloride) 500 mls @ 333.3 mls/hr IV DAILY [facility] Last Admin: 12/02/16 09:24 Dose: 333 mls/hr Potassium Chloride/Dextrose/Sod Cl (Dextrose 5%-1/2ns W/20meq Kcl) 1,000 mls @ 50 mls/hr IV CONT [facility] Lisinopril (Zestril) 2.5 mg PO BID [facility] Lorazepam (Ativan) 0.5 mg PO DAILYP PRN PRN Reason: Anxiety Magnesium Hydroxide (Milk Of Magnesia) 30 ml PO DAILYP PRN PRN Reason: Constipation Metoprolol Succinate (Toprol Xl) 25 mg PO BID [facility] Multivitamins/Minerals (Ocuvite) 1 tab PO DAILY [facility] Last Admin: 12/02/16 09:24 Dose: 1 tab Naloxone HCl (Narcan) 0.1 mg IV Q2MIN PRN PRN Reason: Opiate Reversal Ondansetron HCl (Zofran) 4 mg IV Q4-6HP PRN PRN Reason: Nausea And Vomiting Senna (Senokot) 1 tab PO HSP PRN PRN Reason: Constipation Sertraline HCl (Zoloft) 75 mg PO DAILY [facility] Last Admin: 12/02/16 09:22 Dose: 75 mg Sodium Chloride (Saline Flush) 10 ml IV Q8 [facility] Last Admin: 12/02/16 05:36 Dose: Not Given Spironolactone (Aldactone) 12.5 mg PO BIDD [facility] Vitamin D (Vitamin D3) 1,000 unit PO DAILY [facility] Last Admin: 12/02/16 09:23 Dose: 1,000 unit Medical - PN: A/P - Time Spent With Patient Total time spent is greater than 50% in coordination of care (as documented) at patient's floor/unit and/or counseling patient: (1) 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 Infectious disease. this patient presents with SIRS syndrome, with leukocytosis, acute renal failure , lactic acidosis, and altered mental status. Source seems to be most likely bilateral pneumonia, seen on chest CT. -the patient appears to be responding nicely to aggressive IV fluids and IV antibiotics. -sensitivities on the blood cultures still pending. -he reports he did receive both a flu shot and a Pneumovax recently. -head CT suggests bilateral sinusitis. IV antibiotic should help with this. #2. Cardiac. -Although the patient denies any specific heart symptoms,he does present with elevated troponin and BNP. I discussed this case briefly with Dr. Dunham of cardiology at [facility]. He did not feel, since the patient was not having overt cardiac symptoms,that this was a reason for transfer. He suggested we continue to monitor, and check an echocardiogram. -the patient does have elevated troponin and CPK, more suggestive of her recent cardiac event. Clinically, however, he has been stable. I will decrease his IV fluids, as we try to increase his oral intake. We will change his Betapace over to Toprol-XL, and start a trial of low-dose VANDANA inhibitor and Aldactone.-He will definitely require cardiology follow-up at discharge. I did review these things with he and his daughter. Since he has been clinically stable, they seem content for him to stay here for now. -patient appears to also have a history of atrial fibrillation, and continues on pradaxa. there is a suggestion of possible eft ventricular thrombus. The patient is anticoagulated with Protonix, and we will continue this for now. #3.pulmonary. -The patient is oxygenating well, and does not really report much in the way of pulmonary symptoms. #4. Neurologic. The patient denies any neurologic symptoms, other than progressive generalized weakness over the last day or so. He does have remote strokes on his head CT, and does continue on pradaxa, for his underlying atrial fib/flutter. #5. CODE STATUS: The patient reports he would like to have a no CODE STATUS. . He does have a living will.his daughter has his POA. #6. DVT prophylaxis: Continue Pradaxa. #7. Shoulder pain, status post fall. he is also having continued pain in the left wrist and elbow. We will order x-rays, and his daughter's request. -for his ongoing pain, we will give scheduled dose Tylenol. We will avoid NSAIDs, given his anticoagulation and coronary issues. He does have when necessary [place] ordered. #8. dehydration. improved after IV fluids, but I will start to back off on these, given likely underlying CHF. #9.GI. Family reported an episode of emesis, but the patient does not recall this. We will continue to follow. #10. Acute renal failure, presumably due to dehydration. improved with hydration. #11. Presumed history of depression. Continue sertraline. I will hold mirtazapine until we are sure he is quite alert. #12. Nursing staff does not feel that he is swallowing really well, so a speech therapy eval was ordered. *today's visit is taken approximately 40 minutes, to review the patient's test results, interview and examine him, meet with his daughter and review test results and plan of care with her, as well as with nursing staff and write orders.. Medical - PN: Qual - Stroke Symptom Onset Unknown: No - VTE Deep Vein Thrombosis/Pulmonary Embolism Present on Admission: No
--- NOTE | 2016-12-02 13:20 | XRay Report ---
CLINICAL INFORMATION: Recent trauma COMPARISON: None. FINDINGS: No fracture identified. There may be mild effusion. The lateral view is not optimally profiled. Mild degenerative change noted in the ulnar aspect of the elbow joint. Diffuse soft tissue swelling noted IMPRESSION: No fracture identified. Possible effusion. Consider immobilization and repeat 2 views in 10 days Interpreted and Authenticated by: Hugh Hatch 12/02/16
--- NOTE | 2016-12-02 13:37 | XRay Report ---
CLINICAL INFORMATION: Trauma COMPARISON: None. FINDINGS: No fracture or other focal osseous abnormality identified. Severe first CMC, moderate STT, distal radioulnar and radiocarpal degeneration noted. IMPRESSION: No evidence of fracture. Degenerative change Interpreted and Authenticated by: Hugh Hatch 12/02/16
[2016-12-02] MEDS ORDERED: BISACODYL 10 MG SUPP.RECT PR PRN (14:16)
[2016-12-02] MEDS: ACETAMINOPHEN 325 MG TABLET PO SCH ×2 (15:06→21:12)
[2016-12-02] MEDS: SPIRONOLACTONE 25 MG TABLET PO SCH (17:40)
--- NOTE | 2016-12-02 18:01 | XRay Report ---
CLINICAL INFORMATION: Follow pneumonia COMPARISON: 02/14/2014 FINDINGS: Moderate cardiomegaly is accentuated by rotation and likely unchanged. Pacemaker leads in stable satisfactory position. Mediastinum and pulmonary vessels are normal. Moderate size region of densely consolidated atelectasis or, less likely, infiltrate has developed in the left lower lobe. This is manifest as increased retrocardiac density. Small left pleural effusion is noted. IMPRESSION: New moderate size region of consolidated atelectasis or, less likely, infiltrate in the left lower lobe with small effusion. Interpreted and Authenticated by: Hugh Hatch 12/02/16
[2016-12-02] MEDS: HYDROcodone/APAP 5/325MG TABLET PO PRN (20:17)
[2016-12-02] MEDS: METOPROLOL SUCCINATE 25 MG TAB.XL.24H PO SCH (20:17)
[2016-12-02] MEDS: LISINOPRIL 5 MG TABLET PO SCH (20:19)
[2016-12-03] MEDS: ALBUTEROL SULFATE 2.5 MG/3 ML NEBULIZER NEB SCH ×5 (00:38→23:54)
[2016-12-03] MEDS: MAGNESIUM HYDROXIDE 30 ML ORAL.SUSP PO PRN ×2 (01:35→09:02)
[2016-12-03] MEDS: PIPERACILLIN SODIUM/TAZOBACTAM 3.375 GM in DEXTROSE 5% IN WATER 50 ML IV SCH ×4 (05:24→23:31)
[2016-12-03] MEDS: ACETAMINOPHEN 325 MG TABLET PO SCH ×3 (05:25→21:45)
[2016-12-03] MEDS: 0.9 % SODIUM CHLORIDE 10 ML SYRINGE IV SCH ×4 (05:26→21:48)
[2016-12-03 06:21] LABS: ALT/SGPT 537 U/l (0-40); Albumin 2.2 gm/dL (3.2-5.2); Albumin/Globulin Ratio 0.6 (1.0-2.3); Alkaline Phosphatase 118 U/L (39-117); Bilirubin,Direct 0.9 mg/dL (0.0-0.3); Blood Urea Nitrogen 34 mg/dl (8-23); Gamma Glutamyl Transpeptidase 43 U/L (8-61); Magnesium 2.4 mg/dL (1.6-2.5); Phosphorous 2.7 mg/dL (2.7-4.5); Uric Acid 2.7 mg/dL (2.5-8.0)
[2016-12-03 06:31] LABS: Basophils # (Auto) 0 K/mcL (0.0-0.3); Basophils % (Auto) 0 % (0.0-2.0); Eosinophils # (Auto) 0 K/mcL (0.0-0.7); Eosinophils % (Auto) 0 % (0.0-7.0); Granulocytes % (Auto) 94.6 % (38.0-78.0); Lymphocytes # (Auto) 0.7 K/mcL (1.5-4.8); Lymphocytes % (Auto) 3.6 % (15.5-49.0); Mean Cell Volume 102.5 fL (80.0-100.0); Mean Corpuscular HGB Conc 32.1 g/dL (31.0-36.0); Mean Corpuscular Hemoglobin 32.9 pg (26.0-34.0); Monocytes # (Auto) 0.3 K/mcL (0.1-0.9); Monocytes % (Auto) 1.8 % (1.0-9.0); Platelet Count 196 K/mcL (140-440); RBC 3.73 M/mcL (4.50-5.90); Red Cell Distribution Width 13.9 % (11.5-14.5)
[2016-12-03] MEDS: ALLOPURINOL 100 MG TABLET PO SCH ×2 (08:53→21:44)
[2016-12-03] MEDS: LISINOPRIL 5 MG TABLET PO SCH ×2 (08:53→21:44)
[2016-12-03] MEDS: FINASTERIDE 5 MG TABLET PO SCH (08:53)
[2016-12-03] MEDS: SPIRONOLACTONE 25 MG TABLET PO SCH ×2 (08:54→16:00)
[2016-12-03] MEDS: SERTRALINE 50 MG TABLET PO SCH (08:55)
[2016-12-03] MEDS: VITAMIN D3 1,000 UNIT TABLET PO SCH (08:56)
[2016-12-03] MEDS: VIT A,C & E/LUTEIN/MINERALS TABLET PO SCH (08:57)
[2016-12-03] MEDS: METOPROLOL SUCCINATE 25 MG TAB.XL.24H PO SCH ×2 (08:57→21:44)
[2016-12-03] MEDS: DABIGATRAN ETEXILATE MESYLATE 75 MG CAPSULE PO SCH ×2 (08:58→21:43)
[2016-12-03] MEDS: FAMOTIDINE/PF 20 MG/2 ML VIAL IV SCH ×2 (09:00→21:44)
[2016-12-03] MEDS: DOCUSATE SODIUM 100 MG CAPSULE PO PRN (09:02)
[2016-12-03] MEDS ORDERED: VANCOMYCIN 1,000 MG in 0.9 % SODIUM CHLORIDE 250 ML IV SCH (10:00)
--- NOTE | 2016-12-03 13:22 | Internal Med Progress Note ---
Medical - PN: Subj Patient information: Note initiated : 12/03/16 at 1:22 pm Service Date, if different from initiated Date: [] Patient: Edson Calixto 86 y/o M admitted on 12/01/16 for Fall/Pneumonia. Chief Complaint: [] Interval history: December 01, 2016: History of present illness:Mr. Calixto is a 86 year old male who normally lives alone and cares for himself. He fell 2 days ago, and landed on his right shoulder, and was seen in our emergency room X-rays were negative , and he was sent back home. Yesterday his family stopped by to check on him, and found him on the floor. He said that he tried to sit down in a chair and thinks he tilted forward and then just was too weak to get up. He has been very thirsty. Family felt he was more confused than usual. ER evaluation showed elevated lactic acid, leukocytosis, acute renal failure, elevated LFTs, and chest x-ray consistent withbilateral pneumonia. The patient reports that he was carrying in some things for his 2 days ago , and thinks he just tripped over the back and fell down. Prior to that he said he had been started on prednisone for complaints of joint pain, as his doctor thought he might of had an acute gout flare. He otherwise denies recent fever or chills headaches or dizziness, new eye or ear symptoms, sore throat or cough. e quite adamantly denies any recent chest discomfort, heaviness, palpitations, shortness of breath or wheezing. December 02, 2016: Yesterday, the patient's troponin came back positive. This was reviewed with cardiology at [facility], but he did not seem interested in having the patient transferred over. He did suggest that we check a follow-up echocardiogram. echocardiogram shows severe LV dysfunction with an ejection fraction of 25%. The patient continues to deny any recent history of chest pain or shortness of breath. He does complain of left arm pain, but has had fairly persistent complaints of left wrist and arm and elbow pain since a fall a couple of days ago and his daughter reports today that he has a bruise over his elbow that he did not used to have. The patient notes he continues to have pain in his left wrist and elbow and a bit in his right wrist as well as his right shoulder. Otherwise, he says he overall is feeling better. He denies fever or chills, chest pain or palpitations, shortness of breath or significant cough. He denies abdominal pain , nausea or vomiting, diarrhea, dysuria. December 03, 2016: Today, the patient says he does think he is feeling better overall than yesterday. His pain is definitely better controlled in his shoulders and arms and wrists and his nurse notes the swelling of the left wrist is improved. She notes his O2 saturation did drop to 89% when he was up with physical therapy, but otherwise he is maintaining sats on room air. He does have a better appetite today, and seems to want to eat more. He was complaining of constipation, so did receive some milk of magnesia. otherwise,he denies fever or chills chest pain or palpitations, shortness of breath or significant cough, abdominal pain, nausea or vomiting or diarrhea, or dysuria. - Constitutional Vitals: Vital Signs Temp Pulse Resp BP Pulse Ox 97.0 F L 70 14 121/83 97 12/03/16 08:00 12/03/16 12:00 12/03/16 12:00 12/03/16 12:00 12/03/16 12:00 Period Temp Pulse Resp BP Sys/Jerez Pulse Ox Last 24 Hr 97.0 F-98.2 F 65-94 14-18 90-125/59-86 68-97 Intake and Output 12/02/16 12/03/16 12/03/16 21:59 05:59 13:59 Intake Total 160 / 160 350 / 350 300 / 300 Output Total 275 / 275 350 / 350 375 / 375 Balance -115 / -115 0 / 0 -75 / -75 Weight 200 lb Intake & Output: Intake & Output 12/02/16 12/03/16 12/03/16 21:59 05:59 13:59 Intake Total 160 / 160 350 / 350 300 / 300 Output Total 275 / 275 350 / 350 375 / 375 Balance -115 / -115 0 / 0 -75 / -75 Weight 200 lb Intake: IV 100 / 100 50 / 50 300 / 300 Dextrose 5% in Water 50 100 / 100 50 / 50 50 / 50 ml @ 100 mls/hr IV Q6 GRIS with Zosyn 3.375 gm Rx#: [id number] Sodium Chloride 0.9% 250 250 / 250 ml @ 250 mls/hr IV Q12H GRIS with Vancomycin 1,000 mg Rx#:[id number] Oral 60 / 60 300 / 300 Output: Void Amount 275 / 275 350 / 350 375 / 375 Other: # Voids 1 1 # Bowel Movements 1 1 Exam: on exam, neck shows no obvious lymphadenopathy or JVD. Cardiac exam shows regular rate and rhythm, with normal S1 and S2. Telemetry shows a paced rhythm. Lungs show scattered crackles bilaterally but overall he does seem more clear than yesterday. abdomen is soft and nontender with normal bowel sounds. Extremities show about 1+ pitting edema of the ankles. Neurologic: The patient appears alert and oriented, calm and cooperative. Motor exam is grossly nonfocal Medical - PN: Obj Da - Labs CBC & Chem 7: 12/03/16 05:00 12/03/16 05:00 Labs: Abnormal Lab Results 12/03/16 12/03/16 12/02/16 05:00 05:00 04:37 WBC 18.6 H 20.5 H RBC 3.73 L 3.91 L Hgb 12.3 L 12.8 L Hct 38.2 L 40.1 L MCV 102.5 H 102.6 H Gran % 94.6 H 92.9 H Lymph % (Auto) 3.6 L 4.6 L Gran # 17.6 H 19.1 H Lymph # 0.7 L 0.9 L VBG Lactic Acid Carbon Dioxide 21 L BUN 34 H Creatinine Glucose 182 H Calcium 8.1 L Phosphorus Total Bilirubin 1.9 H Direct Bilirubin 0.9 H AST 413 H ALT 537 H Alkaline Phosphatase 118 H Lactate Dehydrogenase 447 H Total Creatine Kinase CK-MB (CK-2) Troponin T NT-Pro-B Natriuret Pep Albumin 2.2 L Globulin 4.0 H Albumin/Globulin Ratio 0.6 L 12/02/16 12/01/16 12/01/16 04:30 11:08 11:08 WBC RBC Hgb Hct MCV Gran % Lymph % (Auto) Gran # Lymph # VBG Lactic Acid Carbon Dioxide BUN 39 H Creatinine Glucose 152 H Calcium 8.1 L Phosphorus 1.7 L Total Bilirubin 1.7 H Direct Bilirubin 1.0 H AST 370 H ALT 456 H Alkaline Phosphatase Lactate Dehydrogenase 382 H Total Creatine Kinase 1530 H CK-MB (CK-2) 7.8 H Troponin T 0.13 H* NT-Pro-B Natriuret Pep Albumin 2.5 L Globulin Albumin/Globulin Ratio 0.7 L 12/01/16 12/01/16 12/01/16 10:58 07:25 07:25 WBC RBC Hgb Hct MCV Gran % Lymph % (Auto) Gran # Lymph # VBG Lactic Acid 2.9 H Carbon Dioxide BUN Creatinine Glucose Calcium Phosphorus Total Bilirubin Direct Bilirubin AST ALT Alkaline Phosphatase Lactate Dehydrogenase Total Creatine Kinase CK-MB (CK-2) Troponin T 0.18 H* NT-Pro-B Natriuret Pep 73371.0 H Albumin Globulin Albumin/Globulin Ratio 12/01/16 07:25 WBC RBC Hgb Hct MCV Gran % Lymph % (Auto) Gran # Lymph # VBG Lactic Acid Carbon Dioxide BUN 53 H Creatinine 1.3 H Glucose 214 H Calcium 8.3 L Phosphorus Total Bilirubin 1.9 H Direct Bilirubin 1.1 H AST 461 H ALT 480 H Alkaline Phosphatase Lactate Dehydrogenase 320 H Total Creatine Kinase CK-MB (CK-2) Troponin T NT-Pro-B Natriuret Pep Albumin 2.6 L Globulin Albumin/Globulin Ratio 0.7 L blood cultures are growing Streptococcus beta group G, sensitive to ceftriaxone , penicillin, clindamycin, erythromycin, vancomycin; intermediate to tetracycline. follow-up chest x-rays pending echocardiogram from December 01, 2016;There is 4 chamber enlargement. Overall left ventricular systolic performance is severely depressed with ejection fraction of 25%. There is a density along the apical endocardiumsuggesting possible flat thrombus. There is mild mitral regurgitation and elevated pulmonary wedge pressure likely due to passive pulmonary congestion. December 01, 2016: -Lactic acid is elevated at 3.1, with follow-up lactic acid of 2.9. -BNP is elevated at 19,955 -EKG shows sinus rhythm, and is probably paced with underlying atrial flutter.there is no old tracing to compare. -cT scan of the shoulder shows no acute fracture but does show a small remote avulsion fracture of the clavicle tip. There is mild subluxation of the before meals joint which is likely chronic. There is probablechronic rotator cuff tear , as well as severe glenohumeral and AC degeneration. -cT scan of the chest, abdomen, pelvis: Shows mild pancreatic duct dilation. 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 Moderate patchy alveolar infiltrates in both posterior upper and lower lobes with bilateral effusions. 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 -CT scan of the brain shows no hemorrhage, but does show mild atrophy and chronic ischemic changes. There is also a remote infarct in the left frontal lobe about 1 cm in size, as well as right frontal lobe remote infarct and remote infarct of the right superior cerebellum. There is severe bilateral maxillary and ethmoid sinusitis -cT scan of the neck shows no definite acute fractures, but does show C6-7 spondylolisthesis. Also noted is an 11 mm nodule arising from the right inferior thyroid lobe, likely a benign adenoma. Meds: Medications Acetaminophen (Tylenol) 650 mg PO Q8 [facility] Last Admin: 12/03/16 05:25 Dose: 650 mg Acetaminophen/Hydrocodone Bitart ([place] 5/325mg) 1 tab PO Q4HP PRN PRN Reason: Pain Last Admin: 12/02/16 20:17 Dose: 1 tab Albuterol Sulfate (Ventolin) 2.5 mg NEB Q6HRT [facility] Last Admin: 12/03/16 07:28 Dose: 2.5 mg Allopurinol (Zyloprim) 100 mg PO BID [facility] Last Admin: 12/03/16 08:53 Dose: 100 mg Bisacodyl (Dulcolax) 10 mg HI Q2-3DAYS PRN PRN Reason: Constipation Last Admin: 12/03/16 01:04 Dose: 10 mg Dabigatran (Pradaxa) 150 mg PO BID [facility] Last Admin: 12/03/16 08:58 Dose: 150 mg Docusate Sodium (Colace) 100 mg PO BID PRN PRN Reason: Constipation Last Admin: 12/03/16 09:02 Dose: 100 mg Famotidine (Pepcid) 20 mg IV Q12 [facility] Last Admin: 12/03/16 09:00 Dose: 20 mg Finasteride (Proscar) 5 mg PO DAILY [facility] Last Admin: 12/03/16 08:53 Dose: 5 mg Hydromorphone HCl (Dilaudid) 0.5 mg IV Q1HP PRN PRN Reason: Pain Piperacillin Sod/Tazobactam (Sod 3.375 gm/ Dextrose) 50 mls @ 100 mls/hr IV Q6 [facility] Last Admin: 12/03/16 12:13 Dose: 100 mls/hr Potassium Chloride/Dextrose/Sod Cl (Dextrose 5%-1/2ns W/20meq Kcl) 1,000 mls @ 50 mls/hr IV CONT [facility] Last Admin: 12/02/16 12:47 Dose: 50 mls/hr Vancomycin HCl 1,000 mg/ (Sodium Chloride) 250 mls @ 250 mls/hr IV Q12H [facility] Last Infusion: 12/03/16 12:13 Dose: Infused Lisinopril (Zestril) 2.5 mg PO BID [facility] Last Admin: 12/03/16 08:53 Dose: 2.5 mg Lorazepam (Ativan) 0.5 mg PO DAILYP PRN PRN Reason: Anxiety Magnesium Hydroxide (Milk Of Magnesia) 30 ml PO DAILYP PRN PRN Reason: Constipation Last Admin: 12/03/16 09:02 Dose: 30 ml Metoprolol Succinate (Toprol Xl) 25 mg PO BID [facility] Last Admin: 12/03/16 08:57 Dose: 25 mg Multivitamins/Minerals (Ocuvite) 1 tab PO DAILY [facility] Last Admin: 12/03/16 08:57 Dose: 1 tab Naloxone HCl (Narcan) 0.1 mg IV Q2MIN PRN PRN Reason: Opiate Reversal Ondansetron HCl (Zofran) 4 mg IV Q4-6HP PRN PRN Reason: Nausea And Vomiting Senna (Senokot) 1 tab PO HSP PRN PRN Reason: Constipation Sertraline HCl (Zoloft) 75 mg PO DAILY [facility] Last Admin: 12/03/16 08:55 Dose: 75 mg Sodium Chloride (Saline Flush) 10 ml IV Q8 [facility] Last Admin: 12/03/16 05:26 Dose: Not Given Spironolactone (Aldactone) 12.5 mg PO BIDD [facility] Last Admin: 12/03/16 08:54 Dose: 12.5 mg Vitamin D (Vitamin D3) 1,000 unit PO DAILY [facility] Last Admin: 12/03/16 08:56 Dose: 1,000 unit Medical - PN: A/P - Time Spent With Patient Total time spent is greater than 50% in coordination of care (as documented) at patient's floor/unit and/or counseling patient: (1) 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 Infectious disease. this patient presents with SIRS syndrome, with leukocytosis, acute renal failure , lactic acidosis, and altered mental status. Source seems to be most likely bilateral pneumonia, seen on chest CT. -the patient is responding nicely to aggressive IV fluids and IV antibiotics. -blood cultures grew beta strep, which is sensitive to penicillins. -he reports he did receive both a flu shot and a Pneumovax recently. -head CT suggests bilateral sinusitis. IV antibiotic should help with this. #2. Cardiac. -Although the patient denies any specific heart symptoms,he does present with elevated troponin and BNP. I discussed this case briefly with Dr. Dunham of cardiology at [facility]. He did not feel, since the patient was not having overt cardiac symptoms,that this was a reason for transfer. He suggested we continue to monitor, and check an echocardiogram. -the patient does have elevated troponin and CPK, more suggestive of her recent cardiac event. Clinically, however, he has been stable. -IV fluids have been discontinued today. He seems to be tolerating the change from Betapace over to Toprol-XL, plus lisinopril and Aldactone. creatinine and potassium are fine today. -He will definitely require cardiology follow-up at discharge. -patient appears to also have a history of atrial fibrillation, and continues on pradaxa. there is a suggestion of possible left ventricular thrombus. The patient is anticoagulated with Protonix, and we will continue this for now. #3.pulmonary. -The patient is oxygenating well, and does not really report much in the way of pulmonary symptoms. #4. Neurologic. The patient denies any neurologic symptoms, other than progressive generalized weakness over the last day or so. He does have remote strokes on his head CT, and does continue on pradaxa, for his underlying atrial fib/flutter. #5. CODE STATUS: The patient reports he would like to have a no CODE STATUS. . He does have a living will.his daughter has his POA. #6. DVT prophylaxis: Continue Pradaxa. #7. Shoulder pain, status post fall. he is also having continued pain in the left wrist and elbow. we started him on scheduled Tylenol yesterday, and his pain is much improved today. X-rays were unrevealing. - We will avoid NSAIDs, given his anticoagulation and coronary issues. He does have when necessary [place] ordered. #8. dehydration. improved after IV fluids, but discontinue today, and encourage increased oral intake, particularly after his swallow evaluation. #9.GI. -Family reported an episode of emesis, but the patient does not recall this. We will continue to follow. -liver enzymes have been a bit elevated, but I suspect this is passive liver congestion due to his CHF. we will follow this as we wean him off the IV fluids. e will require a dose of IV Lasix at some point. #10. Acute renal failure, presumably due to dehydration. improved with hydration. #11. Presumed history of depression. Continue sertraline. I will hold mirtazapine until we are sure he is quite alert. #12. Nursing staff does not feel that he is swallowing really well, so a speech therapy eval was ordered. Approximately 35 minutes has been spent so far today, reviewing the patient's chest results, interviewing and examining him, reviewing his course of plan of care with nursing staff, and writing orders, as well as transfer orders, as we will transfer him from ICU to telemetry. Medical - PN: Qual - Stroke Symptom Onset Unknown: No - VTE Deep Vein Thrombosis/Pulmonary Embolism Present on Admission: No
[2016-12-03] MEDS ORDERED: MAGNESIUM HYDROXIDE 30 ML ORAL.SUSP PO PRN (15:21)
[2016-12-03] MEDS ORDERED: BISACODYL 10 MG SUPP.RECT PR PRN (15:21)
[2016-12-03] MEDS ORDERED: LORazepam 0.5 MG TABLET PO PRN (15:21)
[2016-12-03] MEDS ORDERED: ONDANSETRON 4 MG/2 ML VIAL IV PRN (15:21)
[2016-12-03] MEDS ORDERED: DOCUSATE SODIUM 100 MG CAPSULE PO PRN (15:21)
[2016-12-03] MEDS ORDERED: HYDROmorphone 2 MG/ML SYRINGE IV PRN (15:21)
[2016-12-03] MEDS ORDERED: NALOXONE HCL 0.4 MG/ML VIAL IV PRN (15:21)
[2016-12-03] MEDS: VANCOMYCIN 1,250 MG in 0.9 % SODIUM CHLORIDE 500 ML IV SCH (19:15)
[2016-12-03] MEDS ORDERED: SENNOSIDES 1 TABLET PO PRN (21:00)
[2016-12-03] MEDS: VANCOMYCIN 1,000 MG in 0.9 % SODIUM CHLORIDE 250 ML IV SCH (21:45)
[2016-12-04] MEDS: PIPERACILLIN SODIUM/TAZOBACTAM 3.375 GM in DEXTROSE 5% IN WATER 50 ML IV SCH ×3 (05:28→18:00)
[2016-12-04] MEDS: ACETAMINOPHEN 325 MG TABLET PO SCH ×3 (05:29→22:02)
[2016-12-04] MEDS: 0.9 % SODIUM CHLORIDE 10 ML SYRINGE IV SCH ×3 (05:29→21:09)
[2016-12-04 06:14] LABS: Basophils # (Auto) 0 K/mcL (0.0-0.3); Basophils % (Auto) 0 % (0.0-2.0); Eosinophils # (Auto) 0.2 K/mcL (0.0-0.7); Granulocytes % (Auto) 93.2 % (38.0-78.0); Lymphocytes # (Auto) 0.9 K/mcL (1.5-4.8); Lymphocytes % (Auto) 3.8 % (15.5-49.0); Mean Cell Volume 102.9 fL (80.0-100.0); Mean Corpuscular HGB Conc 32.1 g/dL (31.0-36.0); Monocytes # (Auto) 0.5 K/mcL (0.1-0.9); Platelet Count 207 K/mcL (140-440); RBC 3.63 M/mcL (4.50-5.90); Red Cell Distribution Width 14.5 % (11.5-14.5)
[2016-12-04 06:42] LABS: ALT/SGPT 419 U/l (0-40); Albumin 2.4 gm/dL (3.2-5.2); Albumin/Globulin Ratio 0.6 (1.0-2.3); Alkaline Phosphatase 101 U/L (39-117); Bilirubin,Direct 0.4 mg/dL (0.0-0.3); Blood Urea Nitrogen 33 mg/dl (8-23); Gamma Glutamyl Transpeptidase 43 U/L (8-61); Magnesium 2.5 mg/dL (1.6-2.5); Phosphorous 2.3 mg/dL (2.7-4.5); Uric Acid 2.4 mg/dL (2.5-8.0)
[2016-12-04] MEDS: ALBUTEROL SULFATE 2.5 MG/3 ML NEBULIZER NEB SCH ×3 (07:22→19:05)
[2016-12-04] MEDS: SPIRONOLACTONE 25 MG TABLET PO SCH ×2 (08:48→16:00)
[2016-12-04] MEDS: VIT A,C & E/LUTEIN/MINERALS TABLET PO SCH ×2 (08:49→21:02)
[2016-12-04] MEDS: DABIGATRAN ETEXILATE MESYLATE 75 MG CAPSULE PO SCH ×2 (08:49→21:01)
[2016-12-04] MEDS: SERTRALINE 50 MG TABLET PO SCH (08:51)
[2016-12-04] MEDS: FINASTERIDE 5 MG TABLET PO SCH (08:52)
[2016-12-04] MEDS: LISINOPRIL 5 MG TABLET PO SCH ×2 (09:01→21:02)
[2016-12-04] MEDS: VITAMIN D3 1,000 UNIT TABLET PO SCH (09:01)
[2016-12-04] MEDS: ALLOPURINOL 100 MG TABLET PO SCH ×2 (09:01→21:03)
[2016-12-04] MEDS: METOPROLOL SUCCINATE 25 MG TAB.XL.24H PO SCH ×2 (09:01→21:03)
[2016-12-04] MEDS: FAMOTIDINE/PF 20 MG/2 ML VIAL IV SCH ×2 (09:05→21:03)
--- NOTE | 2016-12-04 09:50 | XRay Report ---
CLINICAL INFORMATION: Elevated white blood cell count COMPARISON: 12/02/2016 portable chest. FINDINGS: Moderate cardiomegaly is unchanged. Pacemaker leads in stable satisfactory position. Mediastinum and pulmonary vessels are normal. Moderate size region of atelectasis or, less likely, infiltrate left base - retrocardiac region shows slight improvement. Small left pleural effusion noted IMPRESSION: Moderate size region of consolidated atelectasis or, less likely, infiltrate in the left base - retrocardiac region is slightly improved. Interpreted and Authenticated by: Hugh Hatch 12/04/16
[2016-12-04] MEDS: VANCOMYCIN 1,000 MG in 0.9 % SODIUM CHLORIDE 250 ML IV SCH ×2 (13:45→21:01)
--- NOTE | 2016-12-04 16:44 | Internal Med Progress Note ---
Medical - PN: Subj Patient information: Note initiated : 12/04/16 at 4:44 pm Service Date, if different from initiated Date: [] Patient: Edson Calixto 86 y/o M admitted on 12/01/16 for Fall/Pneumonia. Chief Complaint: [] Interval history: December 01, 2016: History of present illness:Mr. Calixto is a 86 year old male who normally lives alone and cares for himself. He fell 2 days ago, and landed on his right shoulder, and was seen in our emergency room X-rays were negative , and he was sent back home. Yesterday his family stopped by to check on him, and found him on the floor. He said that he tried to sit down in a chair and thinks he tilted forward and then just was too weak to get up. He has been very thirsty. Family felt he was more confused than usual. ER evaluation showed elevated lactic acid, leukocytosis, acute renal failure, elevated LFTs, and chest x-ray consistent withbilateral pneumonia. The patient reports that he was carrying in some things for his 2 days ago , and thinks he just tripped over the back and fell down. Prior to that he said he had been started on prednisone for complaints of joint pain, as his doctor thought he might of had an acute gout flare. He otherwise denies recent fever or chills headaches or dizziness, new eye or ear symptoms, sore throat or cough. e quite adamantly denies any recent chest discomfort, heaviness, palpitations, shortness of breath or wheezing. December 02, 2016: Yesterday, the patient's troponin came back positive. This was reviewed with cardiology at [facility], but he did not seem interested in having the patient transferred over. He did suggest that we check a follow-up echocardiogram. echocardiogram shows severe LV dysfunction with an ejection fraction of 25%. The patient continues to deny any recent history of chest pain or shortness of breath. He does complain of left arm pain, but has had fairly persistent complaints of left wrist and arm and elbow pain since a fall a couple of days ago and his daughter reports today that he has a bruise over his elbow that he did not used to have. The patient notes he continues to have pain in his left wrist and elbow and a bit in his right wrist as well as his right shoulder. Otherwise, he says he overall is feeling better. He denies fever or chills, chest pain or palpitations, shortness of breath or significant cough. He denies abdominal pain , nausea or vomiting, diarrhea, dysuria. December 03, 2016: Today, the patient says he does think he is feeling better overall than yesterday. His pain is definitely better controlled in his shoulders and arms and wrists and his nurse notes the swelling of the left wrist is improved. She notes his O2 saturation did drop to 89% when he was up with physical therapy, but otherwise he is maintaining sats on room air. He does have a better appetite today, and seems to want to eat more. He was complaining of constipation, so did receive some milk of magnesia. otherwise,he denies fever or chills chest pain or palpitations, shortness of breath or significant cough, abdominal pain, nausea or vomiting or diarrhea, or dysuria. December 04, 2016: Today, the patient says he is feeling pretty well. He is having a little more pain in his left foot and left wrist today, and wonders if his gout is acting up. Otherwise, he says he is not coughing much. He is not feeling particularly short of breath. He denies fever or chills, chest pain or palpitations, abdominal pain, nausea or vomiting, dysuria. - Constitutional Vitals: Vital Signs Temp Pulse Resp BP Pulse Ox 98.7 F 77 18 138/88 97 12/04/16 12:00 12/04/16 13:50 12/04/16 13:50 12/04/16 12:00 12/04/16 12:00 Period Temp Pulse Resp BP Sys/Jerez Pulse Ox Last 24 Hr 97.0 F-98.7 F 66-90 11-18 113-138/76-91 92-97 Intake and Output 12/04/16 12/04/16 12/04/16 05:59 13:59 21:59 Intake Total 650 / 650 1240 / 1240 250 / 250 Output Total 301 / 301 300 / 300 200 / 200 Balance 349 / 349 940 / 940 50 / 50 Weight 200 lb Patient Weight 12/05/16 05:59 Weight 200 lb Intake & Output: Intake & Output 12/04/16 12/04/16 12/04/16 05:59 13:59 21:59 Intake Total 650 / 650 1240 / 1240 250 / 250 Output Total 301 / 301 300 / 300 200 / 200 Balance 349 / 349 940 / 940 50 / 50 Weight 200 lb Intake: IV 300 / 300 100 / 100 250 / 250 Dextrose 5% in Water 50 50 / 50 100 / 100 ml @ 100 mls/hr IV Q6 GRIS with Zosyn 3.375 gm Rx#: [id number] Sodium Chloride 0.9% 250 250 / 250 250 / 250 ml @ 250 mls/hr IV Q12 GRIS with Vancomycin 1,000 mg Rx#:[id number] Oral 350 / 350 1140 / 1140 Output: Void Amount 300 / 300 300 / 300 200 / 200 # of times incontinent of urine Other: Meal Lunch Percent of Meal Consumed 40 Feeding Ability Assist with Tray Set Up # Voids 1 # Bowel Movements 1 1 Exam: on exam, he is awake and alert, and in no acute distress. neck shows no obvious JVD or lymphadenopathy. Cardiac examshows regular rate and rhythm. Lung examis fairly clear, except there are fairly diffuse and expiratory wheezes , which are quite soft. Abdomen is soft and nontender. Extremities show no significant trace pitting edema. Left wrist is a little warm and red today. Left great toe does not appear particularly red or warm or tender to exam. Medical - PN: Obj Da - Labs CBC & Chem 7: 12/04/16 05:05 12/04/16 05:05 Labs: Abnormal Lab Results 12/04/16 12/04/16 12/04/16 08:55 05:05 05:05 WBC 23.1 H RBC 3.63 L Hgb 12.0 L Hct 37.3 L MCV 102.9 H Gran % 93.2 H Lymph % (Auto) 3.8 L Gran # 21.5 H Lymph # 0.9 L Carbon Dioxide BUN 33 H Glucose 204 H Uric Acid 2.4 L Calcium 8.4 L Phosphorus 2.3 L Total Bilirubin Direct Bilirubin 0.4 H AST 178 H ALT 419 H Alkaline Phosphatase Lactate Dehydrogenase 312 H Albumin 2.4 L Globulin 3.8 H Albumin/Globulin Ratio 0.6 L Vancomycin Trough 15.9 H 12/03/16 12/03/16 12/02/16 05:00 05:00 04:37 WBC 18.6 H 20.5 H RBC 3.73 L 3.91 L Hgb 12.3 L 12.8 L Hct 38.2 L 40.1 L MCV 102.5 H 102.6 H Gran % 94.6 H 92.9 H Lymph % (Auto) 3.6 L 4.6 L Gran # 17.6 H 19.1 H Lymph # 0.7 L 0.9 L Carbon Dioxide 21 L BUN 34 H Glucose 182 H Uric Acid Calcium 8.1 L Phosphorus Total Bilirubin 1.9 H Direct Bilirubin 0.9 H AST 413 H ALT 537 H Alkaline Phosphatase 118 H Lactate Dehydrogenase 447 H Albumin 2.2 L Globulin 4.0 H Albumin/Globulin Ratio 0.6 L Vancomycin Trough 12/02/16 04:30 WBC RBC Hgb Hct MCV Gran % Lymph % (Auto) Gran # Lymph # Carbon Dioxide BUN 39 H Glucose 152 H Uric Acid Calcium 8.1 L Phosphorus 1.7 L Total Bilirubin 1.7 H Direct Bilirubin 1.0 H AST 370 H ALT 456 H Alkaline Phosphatase Lactate Dehydrogenase 382 H Albumin 2.5 L Globulin Albumin/Globulin Ratio 0.7 L Vancomycin Trough chest x-ray, December 04:Moderate-sized infiltrate at the left base, but retrocardiac region shows slight improvement. Small pleural effusion noted. blood cultures are growing Streptococcus beta group G, sensitive to ceftriaxone , penicillin, clindamycin, erythromycin, vancomycin; intermediate to tetracycline. follow-up chest x-rays pending echocardiogram from December 01, 2016;There is 4 chamber enlargement. Overall left ventricular systolic performance is severely depressed with ejection fraction of 25%. There is a density along the apical endocardiumsuggesting possible flat thrombus. There is mild mitral regurgitation and elevated pulmonary wedge pressure likely due to passive pulmonary congestion. December 01, 2016: -Lactic acid is elevated at 3.1, with follow-up lactic acid of 2.9. -BNP is elevated at 19,955 -EKG shows sinus rhythm, and is probably paced with underlying atrial flutter.there is no old tracing to compare. -cT scan of the shoulder shows no acute fracture but does show a small remote avulsion fracture of the clavicle tip. There is mild subluxation of the before meals joint which is likely chronic. There is probablechronic rotator cuff tear , as well as severe glenohumeral and AC degeneration. -cT scan of the chest, abdomen, pelvis: Shows mild pancreatic duct dilation. 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 Moderate patchy alveolar infiltrates in both posterior upper and lower lobes with bilateral effusions. 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 -CT scan of the brain shows no hemorrhage, but does show mild atrophy and chronic ischemic changes. There is also a remote infarct in the left frontal lobe about 1 cm in size, as well as right frontal lobe remote infarct and remote infarct of the right superior cerebellum. There is severe bilateral maxillary and ethmoid sinusitis -cT scan of the neck shows no definite acute fractures, but does show C6-7 spondylolisthesis. Also noted is an 11 mm nodule arising from the right inferior thyroid lobe, likely a benign adenoma. Meds: Medications Acetaminophen (Tylenol) 650 mg PO Q8 [facility] Last Admin: 12/04/16 14:45 Dose: 650 mg Acetaminophen/Hydrocodone Bitart ([place] 5/325mg) 1 tab PO Q4HP PRN PRN Reason: Pain Albuterol Sulfate (Ventolin) 2.5 mg NEB Q6HRT [facility] Last Admin: 12/04/16 13:25 Dose: 2.5 mg Allopurinol (Zyloprim) 100 mg PO BID [facility] Last Admin: 12/04/16 09:01 Dose: 100 mg Bisacodyl (Dulcolax) 10 mg UT Q2-3DAYS PRN PRN Reason: Constipation Dabigatran (Pradaxa) 150 mg PO BID [facility] Last Admin: 12/04/16 08:49 Dose: 150 mg Docusate Sodium (Colace) 100 mg PO BID PRN PRN Reason: Constipation Famotidine (Pepcid) 20 mg IV Q12 [facility] Last Admin: 12/04/16 09:05 Dose: 20 mg Finasteride (Proscar) 5 mg PO DAILY [facility] Last Admin: 12/04/16 08:52 Dose: 5 mg Hydromorphone HCl (Dilaudid) 0.5 mg IV Q1HP PRN PRN Reason: Pain Piperacillin Sod/Tazobactam (Sod 3.375 gm/ Dextrose) 50 mls @ 100 mls/hr IV Q6 [facility] Last Infusion: 12/04/16 12:36 Dose: Infused Vancomycin HCl 1,000 mg/ (Sodium Chloride) 250 mls @ 250 mls/hr IV Q12 [facility] Last Infusion: 12/04/16 14:45 Dose: Infused Lisinopril (Zestril) 2.5 mg PO BID [facility] Last Admin: 12/04/16 09:01 Dose: 2.5 mg Lorazepam (Ativan) 0.5 mg PO DAILYP PRN PRN Reason: Anxiety Magnesium Hydroxide (Milk Of Magnesia) 30 ml PO DAILYP PRN PRN Reason: Constipation Metoprolol Succinate (Toprol Xl) 25 mg PO BID [facility] Last Admin: 12/04/16 09:01 Dose: 25 mg Multivitamins/Minerals (Ocuvite) 1 tab PO DAILY [facility] Last Admin: 12/04/16 08:49 Dose: Not Given Naloxone HCl (Narcan) 0.1 mg IV Q2MIN PRN PRN Reason: Opiate Reversal Ondansetron HCl (Zofran) 4 mg IV Q4-6HP PRN PRN Reason: Nausea And Vomiting Senna (Senokot) 1 tab PO HSP PRN PRN Reason: Constipation Sertraline HCl (Zoloft) 75 mg PO DAILY [facility] Last Admin: 12/04/16 08:51 Dose: 75 mg Sodium Chloride (Saline Flush) 10 ml IV Q8 [facility] Last Admin: 12/04/16 14:46 Dose: 10 ml Spironolactone (Aldactone) 12.5 mg PO BIDD [facility] Last Admin: 12/04/16 08:48 Dose: 12.5 mg Vitamin D (Vitamin D3) 1,000 unit PO DAILY [facility] Last Admin: 12/04/16 09:01 Dose: 1,000 unit Medical - PN: A/P - Time Spent With Patient Total time spent is greater than 50% in coordination of care (as documented) at patient's floor/unit and/or counseling patient: (1) 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 Infectious disease. this patient presents with SIRS syndrome, with leukocytosis, acute renal failure , lactic acidosis, and altered mental status. Source seems to be most likely bilateral pneumonia, seen on chest CT. -the patient is responding nicely to aggressive IV fluids and IV antibiotics. -blood cultures grew beta strep, which is sensitive to penicillins. -he reports he did receive both a flu shot and a Pneumovax recently. -head CT suggests bilateral sinusitis. IV antibiotic should help with this. #2. Cardiac. -Although the patient denies any specific heart symptoms,he does present with elevated troponin and BNP. I discussed this case briefly with Dr. Dunham of cardiology at [facility]. He did not feel, since the patient was not having overt cardiac symptoms,that this was a reason for transfer. He suggested we continue to monitor, and check an echocardiogram. -the patient does have elevated troponin and CPK, more suggestive of her recent cardiac event. Clinically, however, he has been stable. -IV fluids have been discontinued today. He seems to be tolerating the change from Betapace over to Toprol-XL, plus lisinopril and Aldactone. creatinine and potassium are fine today. -He will definitely require cardiology follow-up at discharge. -patient appears to also have a history of atrial fibrillation, and continues on pradaxa. there is a suggestion of possible left ventricular thrombus. The patient is anticoagulated with Protonix, and we will continue this for now. #3.pulmonary. -The patient is oxygenating well, and does not really report much in the way of pulmonary symptoms. #4. Neurologic. The patient denies any neurologic symptoms, other than progressive generalized weakness over the last day or so. He does have remote strokes on his head CT, and does continue on pradaxa, for his underlying atrial fib/flutter. #5. CODE STATUS: The patient reports he would like to have a no CODE STATUS. . He does have a living will.his daughter has his POA. #6. DVT prophylaxis: Continue Pradaxa. #7. Shoulder pain, status post fall. he is also having continued pain in the left wrist and elbow. we started him on scheduled Tylenol and his pain is getting better, but today is a little worse again. X-rays were unrevealing. - We will avoid NSAIDs, given his anticoagulation and coronary issues. He does have when necessary [place] ordered. I think I will start low-dose prednisone in case this is a gout flare. #8. dehydration. improved after IV fluids, but discontinue today, and encourage increased oral intake, particularly after his swallow evaluation. #9.GI. -Family reported an episode of emesis, but the patient does not recall this. We will continue to follow. -liver enzymes have been a bit elevated, but I suspect this is passive liver congestion due to his CHF. we will follow this as we wean him off the IV fluids. e will require a dose of IV Lasix at some point. #10. Acute renal failure, presumably due to dehydration. improved with hydration. #11. Presumed history of depression. Continue sertraline. I will hold mirtazapine until we are sure he is quite alert. #12. Nursing staff does not feel that he is swallowing really well, so a speech therapy eval was ordered. approximately 25 minutes was spent today, reviewing the patient's test results, interviewing and examining him, and writing orders. Medical - PN: Qual - Stroke Symptom Onset Unknown: No - VTE Deep Vein Thrombosis/Pulmonary Embolism Present on Admission: No
[2016-12-04] MEDS ORDERED: predniSONE 10 MG TABLET PO ONE (19:31)
[2016-12-04] MEDS: HYDROcodone/APAP 5/325MG TABLET PO PRN (21:04)
[2016-12-05] MEDS: ALBUTEROL SULFATE 2.5 MG/3 ML NEBULIZER NEB SCH ×3 (03:28→14:27)
[2016-12-05] MEDS: PIPERACILLIN SODIUM/TAZOBACTAM 3.375 GM in DEXTROSE 5% IN WATER 50 ML IV SCH ×5 (05:36→23:24)
[2016-12-05] MEDS: 0.9 % SODIUM CHLORIDE 10 ML SYRINGE IV SCH ×5 (05:37→21:01)
[2016-12-05 06:20] LABS: Basophils # (Auto) 0 K/mcL (0.0-0.3); Basophils % (Auto) 0 % (0.0-2.0); Eosinophils # (Auto) 0.2 K/mcL (0.0-0.7); Eosinophils % (Auto) 0.9 % (0.0-7.0); Granulocytes % (Auto) 92.5 % (38.0-78.0); Lymphocytes # (Auto) 0.9 K/mcL (1.5-4.8); Lymphocytes % (Auto) 4.6 % (15.5-49.0); Mean Cell Volume 101.7 fL (80.0-100.0); Mean Corpuscular HGB Conc 31.9 g/dL (31.0-36.0); Mean Corpuscular Hemoglobin 32.4 pg (26.0-34.0); Monocytes # (Auto) 0.4 K/mcL (0.1-0.9); Platelet Count 229 K/mcL (140-440); Red Cell Distribution Width 14.4 % (11.5-14.5)
[2016-12-05 06:42] LABS: ALT/SGPT 311 U/l (0-40); Albumin 2.6 gm/dL (3.2-5.2); Albumin/Globulin Ratio 0.7 (1.0-2.3); Alkaline Phosphatase 101 U/L (39-117); Bilirubin,Direct 0.4 mg/dL (0.0-0.3); Blood Urea Nitrogen 36 mg/dl (8-23); Gamma Glutamyl Transpeptidase 54 U/L (8-61); Magnesium 2.4 mg/dL (1.6-2.5); Phosphorous 2.9 mg/dL (2.7-4.5); Uric Acid 2.5 mg/dL (2.5-8.0)
[2016-12-05] MEDS: ACETAMINOPHEN 325 MG TABLET PO SCH ×3 (07:22→21:09)
[2016-12-05] MEDS: FINASTERIDE 5 MG TABLET PO SCH (07:55)
[2016-12-05] MEDS: FAMOTIDINE/PF 20 MG/2 ML VIAL IV SCH ×2 (07:56→21:00)
[2016-12-05] MEDS: LISINOPRIL 5 MG TABLET PO SCH ×2 (07:56→20:59)
[2016-12-05] MEDS: METOPROLOL SUCCINATE 25 MG TAB.XL.24H PO SCH ×3 (07:56→21:00)
[2016-12-05] MEDS: ALLOPURINOL 100 MG TABLET PO SCH ×2 (07:57→20:59)
[2016-12-05] MEDS: VIT A,C & E/LUTEIN/MINERALS TABLET PO SCH ×2 (07:57→21:00)
[2016-12-05] MEDS: VITAMIN D3 1,000 UNIT TABLET PO SCH (07:57)
[2016-12-05] MEDS: SPIRONOLACTONE 25 MG TABLET PO SCH ×2 (08:05→15:58)
[2016-12-05] MEDS: HYDROcodone/APAP 5/325MG TABLET PO PRN (08:06)
[2016-12-05] MEDS: SERTRALINE 50 MG TABLET PO SCH (08:07)
[2016-12-05] MEDS: predniSONE 10 MG TABLET PO SCH (08:08)
[2016-12-05] MEDS: DABIGATRAN ETEXILATE MESYLATE 75 MG CAPSULE PO SCH ×2 (09:04→21:00)
[2016-12-05] MEDS: VANCOMYCIN 1,000 MG in 0.9 % SODIUM CHLORIDE 250 ML IV SCH ×2 (09:44→21:01)
--- NOTE | 2016-12-05 14:37 | Internal Med Progress Note ---
Medical - PN: Subj Patient information: Note initiated : 12/05/16 at 2:37 pm Service Date, if different from initiated Date: [] Patient: Edson Calixto 86 y/o M admitted on 12/01/16 for Fall/Pneumonia. Chief Complaint: [] Interval history: December 01, 2016: History of present illness:Mr. Calixto is a 86 year old male who normally lives alone and cares for himself. He fell 2 days ago, and landed on his right shoulder, and was seen in our emergency room X-rays were negative , and he was sent back home. Yesterday his family stopped by to check on him, and found him on the floor. He said that he tried to sit down in a chair and thinks he tilted forward and then just was too weak to get up. He has been very thirsty. Family felt he was more confused than usual. ER evaluation showed elevated lactic acid, leukocytosis, acute renal failure, elevated LFTs, and chest x-ray consistent withbilateral pneumonia. The patient reports that he was carrying in some things for his 2 days ago , and thinks he just tripped over the back and fell down. Prior to that he said he had been started on prednisone for complaints of joint pain, as his doctor thought he might of had an acute gout flare. He otherwise denies recent fever or chills headaches or dizziness, new eye or ear symptoms, sore throat or cough. e quite adamantly denies any recent chest discomfort, heaviness, palpitations, shortness of breath or wheezing. December 02, 2016: Yesterday, the patient's troponin came back positive. This was reviewed with cardiology at [facility], but he did not seem interested in having the patient transferred over. He did suggest that we check a follow-up echocardiogram. echocardiogram shows severe LV dysfunction with an ejection fraction of 25%. The patient continues to deny any recent history of chest pain or shortness of breath. He does complain of left arm pain, but has had fairly persistent complaints of left wrist and arm and elbow pain since a fall a couple of days ago and his daughter reports today that he has a bruise over his elbow that he did not used to have. The patient notes he continues to have pain in his left wrist and elbow and a bit in his right wrist as well as his right shoulder. Otherwise, he says he overall is feeling better. He denies fever or chills, chest pain or palpitations, shortness of breath or significant cough. He denies abdominal pain , nausea or vomiting, diarrhea, dysuria. December 03, 2016: Today, the patient says he does think he is feeling better overall than yesterday. His pain is definitely better controlled in his shoulders and arms and wrists and his nurse notes the swelling of the left wrist is improved. She notes his O2 saturation did drop to 89% when he was up with physical therapy, but otherwise he is maintaining sats on room air. He does have a better appetite today, and seems to want to eat more. He was complaining of constipation, so did receive some milk of magnesia. otherwise,he denies fever or chills chest pain or palpitations, shortness of breath or significant cough, abdominal pain, nausea or vomiting or diarrhea, or dysuria. December 04, 2016: Today, the patient says he is feeling pretty well. He is having a little more pain in his left foot and left wrist today, and wonders if his gout is acting up. Otherwise, he says he is not coughing much. He is not feeling particularly short of breath. He denies fever or chills, chest pain or palpitations, abdominal pain, nausea or vomiting, dysuria. December 05, 2016: today, the patient says he is doing okay except that he is still just quite fatigued. He is having some pain in his right upper arm around the biceps area, and blames that on his recent fall. He says physical therapy is working with him on mobilizing. he and his daughter both note that the arm seems a little more swollen today. I did start him on low-dose prednisone last night, as he was having more wrist and foot pain, and we thought it might be due to gout. Think that both the left wrist and right foot pain have improved. Otherwise he denies feeling particularly short of breath or having a cough. he denies fever or chills, chest pain or palpitations, abdominal pain, nausea or vomiting or diarrhea, or dysuria. We were planning on trying to send him to [facility] today for rehabilitation, but he doesn't seem as perky as he was yesterday, and his white blood cell count is higher this morning as well, so we thought it would be safer to watch him another day. - Constitutional Vitals: Vital Signs Temp Pulse Resp BP Pulse Ox 96.8 F L 79 16 129/87 94 12/05/16 12:13 12/05/16 14:29 12/05/16 14:29 12/05/16 12:13 12/05/16 12:13 Period Temp Pulse Resp BP Sys/Jerez Pulse Ox Last 24 Hr 96.8 F-98.9 F 71-81 16-20 129-143/77-99 93-96 Intake and Output 12/05/16 12/05/16 12/05/16 05:59 13:59 21:59 Intake Total 575 / 575 50 / 50 Output Total 401 / 401 400 / 400 Balance 174 / 174 -350 / -350 Intake & Output: Intake & Output 12/05/16 12/05/16 12/05/16 05:59 13:59 21:59 Intake Total 575 / 575 50 / 50 Output Total 401 / 401 400 / 400 Balance 174 / 174 -350 / -350 Intake: IV 300 / 300 50 / 50 Dextrose 5% in Water 50 50 / 50 50 / 50 ml @ 100 mls/hr IV Q6 GRIS with Zosyn 3.375 gm Rx#: [id number] Sodium Chloride 0.9% 250 250 / 250 ml @ 250 mls/hr IV Q12 GRIS with Vancomycin 1,000 mg Rx#:[id number] Oral 275 / 275 Output: Void Amount 400 / 400 400 / 400 # of times incontinent of 1 / 1 urine Other: # Bowel Movements 1 Exam: on exam, he is in no acute distress, and is lying in bed. His daughter is in the room with him this morning. Neck is supple without obvious lymphadenopathy or JVD. Cardiac exam shows regular rate and rhythm. Lungs:Have generally decreased breath sounds, but otherwise it is not hear rales , rhonchi, wheezes. Abdomen: Is soft and nontender. Extremities: Lower extremities show no significant edema. The left wristseems less swollen today, and he has better movement, but it is still somewhat pink. The right arm is swollen both below and above the elbow, when compared to the left side. Medical - PN: Obj Da - Labs CBC & Chem 7: 12/05/16 04:00 12/05/16 04:00 Labs: Abnormal Lab Results 12/05/16 12/05/16 12/04/16 04:00 04:00 08:55 WBC 20.2 H RBC 3.80 L Hgb 12.3 L Hct 38.7 L MCV 101.7 H Gran % 92.5 H Lymph % (Auto) 4.6 L Gran # 18.7 H Lymph # 0.9 L Carbon Dioxide BUN 36 H Glucose 133 H Uric Acid Calcium 8.4 L Phosphorus Total Bilirubin Direct Bilirubin 0.4 H AST 84 H ALT 311 H Alkaline Phosphatase Lactate Dehydrogenase 302 H Albumin 2.6 L Globulin 3.8 H Albumin/Globulin Ratio 0.7 L Vancomycin Trough 15.9 H 12/04/16 12/04/16 12/03/16 05:05 05:05 05:00 WBC 23.1 H RBC 3.63 L Hgb 12.0 L Hct 37.3 L MCV 102.9 H Gran % 93.2 H Lymph % (Auto) 3.8 L Gran # 21.5 H Lymph # 0.9 L Carbon Dioxide 21 L BUN 33 H 34 H Glucose 204 H 182 H Uric Acid 2.4 L Calcium 8.4 L 8.1 L Phosphorus 2.3 L Total Bilirubin 1.9 H Direct Bilirubin 0.4 H 0.9 H AST 178 H 413 H ALT 419 H 537 H Alkaline Phosphatase 118 H Lactate Dehydrogenase 312 H 447 H Albumin 2.4 L 2.2 L Globulin 3.8 H 4.0 H Albumin/Globulin Ratio 0.6 L 0.6 L Vancomycin Trough 12/03/16 05:00 WBC 18.6 H RBC 3.73 L Hgb 12.3 L Hct 38.2 L MCV 102.5 H Gran % 94.6 H Lymph % (Auto) 3.6 L Gran # 17.6 H Lymph # 0.7 L Carbon Dioxide BUN Glucose Uric Acid Calcium Phosphorus Total Bilirubin Direct Bilirubin AST ALT Alkaline Phosphatase Lactate Dehydrogenase Albumin Globulin Albumin/Globulin Ratio Vancomycin Trough chest x-ray, December 04:Moderate-sized infiltrate at the left base, but retrocardiac region shows slight improvement. Small pleural effusion noted. blood cultures are growing Streptococcus beta group G, sensitive to ceftriaxone , penicillin, clindamycin, erythromycin, vancomycin; intermediate to tetracycline. follow-up chest x-rays pending echocardiogram from December 01, 2016;There is 4 chamber enlargement. Overall left ventricular systolic performance is severely depressed with ejection fraction of 25%. There is a density along the apical endocardiumsuggesting possible flat thrombus. There is mild mitral regurgitation and elevated pulmonary wedge pressure likely due to passive pulmonary congestion. December 01, 2016: -Lactic acid is elevated at 3.1, with follow-up lactic acid of 2.9. -BNP is elevated at 19,955 -EKG shows sinus rhythm, and is probably paced with underlying atrial flutter.there is no old tracing to compare. -cT scan of the shoulder shows no acute fracture but does show a small remote avulsion fracture of the clavicle tip. There is mild subluxation of the before meals joint which is likely chronic. There is probablechronic rotator cuff tear , as well as severe glenohumeral and AC degeneration. -cT scan of the chest, abdomen, pelvis: Shows mild pancreatic duct dilation. 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 Moderate patchy alveolar infiltrates in both posterior upper and lower lobes with bilateral effusions. 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 -CT scan of the brain shows no hemorrhage, but does show mild atrophy and chronic ischemic changes. There is also a remote infarct in the left frontal lobe about 1 cm in size, as well as right frontal lobe remote infarct and remote infarct of the right superior cerebellum. There is severe bilateral maxillary and ethmoid sinusitis -cT scan of the neck shows no definite acute fractures, but does show C6-7 spondylolisthesis. Also noted is an 11 mm nodule arising from the right inferior thyroid lobe, likely a benign adenoma. Meds: Medications Acetaminophen (Tylenol) 650 mg PO Q8 [facility] Last Admin: 12/05/16 07:22 Dose: 650 mg Acetaminophen/Hydrocodone Bitart ([place] 5/325mg) 1 tab PO Q4HP PRN PRN Reason: Pain Last Admin: 12/05/16 08:06 Dose: 1 tab Albuterol Sulfate (Ventolin) 2.5 mg NEB Q6HRT [facility] Last Admin: 12/05/16 14:27 Dose: 2.5 mg Allopurinol (Zyloprim) 100 mg PO BID [facility] Last Admin: 12/05/16 07:57 Dose: 100 mg Bisacodyl (Dulcolax) 10 mg MD Q2-3DAYS PRN PRN Reason: Constipation Dabigatran (Pradaxa) 150 mg PO BID [facility] Last Admin: 12/05/16 09:04 Dose: 150 mg Docusate Sodium (Colace) 100 mg PO BID PRN PRN Reason: Constipation Last Admin: 12/05/16 08:08 Dose: 100 mg Famotidine (Pepcid) 20 mg IV Q12 [facility] Last Admin: 12/05/16 07:56 Dose: 20 mg Finasteride (Proscar) 5 mg PO DAILY [facility] Last Admin: 12/05/16 07:55 Dose: 5 mg Hydromorphone HCl (Dilaudid) 0.5 mg IV Q1HP PRN PRN Reason: Pain Piperacillin Sod/Tazobactam (Sod 3.375 gm/ Dextrose) 50 mls @ 100 mls/hr IV Q6 [facility] Last Admin: 12/05/16 12:53 Dose: 100 mls/hr Vancomycin HCl 1,000 mg/ (Sodium Chloride) 250 mls @ 250 mls/hr IV Q12 [facility] Last Admin: 12/05/16 09:44 Dose: 250 mls/hr Lisinopril (Zestril) 2.5 mg PO BID [facility] Last Admin: 12/05/16 07:56 Dose: 2.5 mg Lorazepam (Ativan) 0.5 mg PO DAILYP PRN PRN Reason: Anxiety Magnesium Hydroxide (Milk Of Magnesia) 30 ml PO DAILYP PRN PRN Reason: Constipation Metoprolol Succinate (Toprol Xl) 25 mg PO BID [facility] Last Admin: 12/05/16 07:56 Dose: 25 mg Multivitamins/Minerals (Ocuvite) 1 tab PO DAILY [facility] Last Admin: 12/05/16 07:57 Dose: Not Given Naloxone HCl (Narcan) 0.1 mg IV Q2MIN PRN PRN Reason: Opiate Reversal Ondansetron HCl (Zofran) 4 mg IV Q4-6HP PRN PRN Reason: Nausea And Vomiting [facility] Admin: 12/05/16 08:08 Dose: 10 mg Senna (Senokot) 1 tab PO HSP PRN PRN Reason: Constipation Sertraline HCl (Zoloft) 75 mg PO DAILY [facility] Last Admin: 12/05/16 08:07 Dose: 75 mg Sodium Chloride (Saline Flush) 10 ml IV Q8 [facility] Last Admin: 12/05/16 07:59 Dose: 10 ml Spironolactone (Aldactone) 12.5 mg PO BIDD [facility] Last Admin: 12/05/16 08:05 Dose: 12.5 mg Vitamin D (Vitamin D3) 1,000 unit PO DAILY [facility] Last Admin: 12/05/16 07:57 Dose: 1,000 unit Medical - PN: A/P - Time Spent With Patient Total time spent is greater than 50% in coordination of care (as documented) at patient's floor/unit and/or counseling patient: (1) 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 Infectious disease. this patient presents with SIRS syndrome, with leukocytosis, acute renal failure , lactic acidosis, and altered mental status. Source seems to be most likely bilateral pneumonia, seen on chest CT. -the patient is responding nicely to aggressive IV fluids and IV antibiotics. -blood cultures grew beta strep, which is sensitive to penicillins. -his white blood cell count continues to run high, although has dropped from 23 yesterday, down to 20 today. his lungs appear to be doing fine. -he reports he did receive both a flu shot and a Pneumovax recently. -head CT suggests bilateral sinusitis. IV antibiotic should help with this. #2. Cardiac. -Although the patient denies any specific heart symptoms,he does present with elevated troponin and BNP. I discussed this case briefly with Dr. Dunham of cardiology at [facility]. He did not feel, since the patient was not having overt cardiac symptoms,that this was a reason for transfer. He suggested we continue to monitor, and check an echocardiogram. -the patient does have elevated troponin and CPK, more suggestive of her recent cardiac event. Clinically, however, he has been stable. -IV fluids have been discontinued . He seems to be tolerating the change from Betapace over to Toprol-XL, plus lisinopril and Aldactone. creatinine and potassium are fine today. I will try increasing doses of Toprol and lisinopril today. -He will definitely require cardiology follow-up at discharge. -patient appears to also have a history of atrial fibrillation, and continues on pradaxa. there is a suggestion of possible left ventricular thrombus. The patient is anticoagulated with Protonix, and we will continue this for now. #3.pulmonary. -The patient is oxygenating well, and does not really report much in the way of pulmonary symptoms. #4. Neurologic. The patient denies any neurologic symptoms, other than progressive generalized weakness over the last day or so. He does have remote strokes on his head CT, and does continue on pradaxa, for his underlying atrial fib/flutter. #5. CODE STATUS: The patient reports he would like to have a no CODE STATUS. . He does have a living will.his daughter has his POA. #6. DVT prophylaxis: Continue Pradaxa. #7. Shoulder pain, status post fall. he is also having continued pain in the left wrist and elbow. we started him on scheduled Tylenol and his pain is getting better, but today is a little worse again. X-rays were unrevealing. - We will avoid NSAIDs, given his anticoagulation and coronary issues. He does have when necessary [place] ordered. I think I will start low-dose prednisone in case this is a gout flare. #8. dehydration. improved after IV fluids, but discontinue today, and encourage increased oral intake, particularly after his swallow evaluation. #9.GI. -Family reported an episode of emesis, but the patient does not recall this. We will continue to follow. -liver enzymes have been a bit elevated, but I suspect this is passive liver congestion due to his CHF. we will follow this as we wean him off the IV fluids. e will require a dose of IV Lasix at some point. #10. Acute renal failure, presumably due to dehydration. improved with hydration. #11. Presumed history of depression. Continue sertraline. I will hold mirtazapine until we are sure he is quite alert. #12. Nursing staff does not feel that he is swallowing really well, so a speech therapy eval was ordered.he now feels that he understands better now how to safely swallow. #13. Swelling of his right arm today. I will check a venous Doppler just to be sure he does not have a DVT. this visit today took approximately 35 minutes, to interview and examine the patient, review test results, review plan of care with the patient and his daughter, and write orders. Medical - PN: Qual - Stroke Symptom Onset Unknown: No - VTE Deep Vein Thrombosis/Pulmonary Embolism Present on Admission: No
[2016-12-05] MEDS ORDERED: ALBUTEROL SULFATE 2.5 MG/3 ML NEBULIZER NEB PRN (15:27)
--- NOTE | 2016-12-05 20:47 | Ultrasound Report ---
CLINICAL INFORMATION: Right arm swelling after trauma question DVT COMPARISON: None. FINDINGS: The entire deep and superficial venous system of the right upper extremity is easily compressible and demonstrates normal venous blood flow in color and spectral Doppler. No evidence of DVT. There is a 2 cm fluid collection in the antecubital fossa subcutaneous soft tissues. IMPRESSION: No evidence of DVT. 2 cm fluid collection in the antecubital fossa Interpreted and Authenticated by: Hugh Hatch 12/05/16
[2016-12-06] MEDS: ACETAMINOPHEN 325 MG TABLET PO SCH ×3 (05:38→20:57)
[2016-12-06] MEDS: PIPERACILLIN SODIUM/TAZOBACTAM 3.375 GM in DEXTROSE 5% IN WATER 50 ML IV SCH ×4 (05:38→23:13)
[2016-12-06] MEDS: 0.9 % SODIUM CHLORIDE 10 ML SYRINGE IV SCH ×3 (05:39→20:58)
[2016-12-06 06:10] LABS: Basophils # (Auto) 0 K/mcL (0.0-0.3); Basophils % (Auto) 0 % (0.0-2.0); Eosinophils # (Auto) 0.1 K/mcL (0.0-0.7); Eosinophils % (Auto) 0.7 % (0.0-7.0); Lymphocytes # (Auto) 1.6 K/mcL (1.5-4.8); Lymphocytes % (Auto) 10.8 % (15.5-49.0); Mean Cell Volume 101.9 fL (80.0-100.0); Mean Corpuscular HGB Conc 32.2 g/dL (31.0-36.0); Mean Corpuscular Hemoglobin 32.8 pg (26.0-34.0); Monocytes # (Auto) 0.2 K/mcL (0.1-0.9); Monocytes % (Auto) 1.5 % (1.0-9.0); Platelet Count 241 K/mcL (140-440); RBC 3.87 M/mcL (4.50-5.90); Red Cell Distribution Width 14.5 % (11.5-14.5)
[2016-12-06] MEDS: SERTRALINE 50 MG TABLET PO SCH (08:44)
[2016-12-06] MEDS: METOPROLOL SUCCINATE 25 MG TAB.XL.24H PO SCH ×2 (08:45→20:57)
[2016-12-06] MEDS: FINASTERIDE 5 MG TABLET PO SCH (08:46)
[2016-12-06] MEDS: VITAMIN D3 1,000 UNIT TABLET PO SCH (08:47)
[2016-12-06] MEDS: predniSONE 10 MG TABLET PO SCH (08:47)
[2016-12-06] MEDS: SPIRONOLACTONE 25 MG TABLET PO SCH ×2 (08:47→17:27)
[2016-12-06] MEDS: LISINOPRIL 5 MG TABLET PO SCH ×2 (08:48→20:58)
[2016-12-06] MEDS: ALLOPURINOL 100 MG TABLET PO SCH ×2 (08:49→20:57)
[2016-12-06] MEDS: FAMOTIDINE/PF 20 MG/2 ML VIAL IV SCH ×2 (08:51→20:58)
[2016-12-06] MEDS: VANCOMYCIN 1,000 MG in 0.9 % SODIUM CHLORIDE 250 ML IV SCH ×2 (09:04→20:59)
[2016-12-06] MEDS: DABIGATRAN ETEXILATE MESYLATE 75 MG CAPSULE PO SCH ×2 (09:05→20:57)
--- NOTE | 2016-12-06 12:06 | Internal Med Progress Note ---
Medical - PN: Subj Patient information: Note initiated : 12/06/16 at 11:59 am Service Date, if different from initiated Date: [] Patient: Edson Calixto 86 y/o M admitted on 12/01/16 for Fall/Pneumonia. Interval history: December 01, 2016: History of present illness:Mr. Calixto is a 86 year old male who normally lives alone and cares for himself. He fell 2 days ago, and landed on his right shoulder, and was seen in our emergency room X-rays were negative , and he was sent back home. Yesterday his family stopped by to check on him, and found him on the floor. He said that he tried to sit down in a chair and thinks he tilted forward and then just was too weak to get up. He has been very thirsty. Family felt he was more confused than usual. ER evaluation showed elevated lactic acid, leukocytosis, acute renal failure, elevated LFTs, and chest x-ray consistent withbilateral pneumonia. The patient reports that he was carrying in some things for his 2 days ago , and thinks he just tripped over the back and fell down. Prior to that he said he had been started on prednisone for complaints of joint pain, as his doctor thought he might of had an acute gout flare. He otherwise denies recent fever or chills headaches or dizziness, new eye or ear symptoms, sore throat or cough. e quite adamantly denies any recent chest discomfort, heaviness, palpitations, shortness of breath or wheezing. December 02, 2016: Yesterday, the patient's troponin came back positive. This was reviewed with cardiology at [facility], but he did not seem interested in having the patient transferred over. He did suggest that we check a follow-up echocardiogram. echocardiogram shows severe LV dysfunction with an ejection fraction of 25%. The patient continues to deny any recent history of chest pain or shortness of breath. He does complain of left arm pain, but has had fairly persistent complaints of left wrist and arm and elbow pain since a fall a couple of days ago and his daughter reports today that he has a bruise over his elbow that he did not used to have. The patient notes he continues to have pain in his left wrist and elbow and a bit in his right wrist as well as his right shoulder. Otherwise, he says he overall is feeling better. He denies fever or chills, chest pain or palpitations, shortness of breath or significant cough. He denies abdominal pain , nausea or vomiting, diarrhea, dysuria. December 03, 2016: Today, the patient says he does think he is feeling better overall than yesterday. His pain is definitely better controlled in his shoulders and arms and wrists and his nurse notes the swelling of the left wrist is improved. She notes his O2 saturation did drop to 89% when he was up with physical therapy, but otherwise he is maintaining sats on room air. He does have a better appetite today, and seems to want to eat more. He was complaining of constipation, so did receive some milk of magnesia. otherwise,he denies fever or chills chest pain or palpitations, shortness of breath or significant cough, abdominal pain, nausea or vomiting or diarrhea, or dysuria. December 04, 2016: Today, the patient says he is feeling pretty well. He is having a little more pain in his left foot and left wrist today, and wonders if his gout is acting up. Otherwise, he says he is not coughing much. He is not feeling particularly short of breath. He denies fever or chills, chest pain or palpitations, abdominal pain, nausea or vomiting, dysuria. December 05, 2016: today, the patient says he is doing okay except that he is still just quite fatigued. He is having some pain in his right upper arm around the biceps area, and blames that on his recent fall. He says physical therapy is working with him on mobilizing. he and his daughter both note that the arm seems a little more swollen today. I did start him on low-dose prednisone last night, as he was having more wrist and foot pain, and we thought it might be due to gout. Think that both the left wrist and right foot pain have improved. Otherwise he denies feeling particularly short of breath or having a cough. he denies fever or chills, chest pain or palpitations, abdominal pain, nausea or vomiting or diarrhea, or dysuria. We were planning on trying to send him to [facility] today for rehabilitation, but he doesn't seem as perky as he was yesterday, and his white blood cell count is higher this morning as well, so we thought it would be safer to watch him another day. December 06, 2016: Today, the patient continues to complain of feeling rather weak , but admits that he has less cough and is definitely less short of breath and before. His daughter notes that he is able to walk to and from the bathroom with some assistance. They're wondering what his echo looks like on the test before this one, but we do not have his cardiac records. Otherwise, he denies fever or chills, headaches or dizziness, or palpitations or significant shortness of breath, abdominal pain. He reports diarrhea, but the nurses have checked his stools and they are formed and soft, with no evidence of C. difficile. He denies dysuria. he did report a few minutes of left-sided chest discomfort this morning, but he blames that on swallowing his Tylenol pills. He said it resolved after he drank some water, and only lasted 2-3 minutes. He is encouraged to notify us if he has any chest discomfort at all. joint pain in general, seems improved today. The right upper arm is less swollen today. The venous Doppler on his arm yesterday did not show DVT, but did show a fluid collection. White blood cell count is coming back down again today. - Constitutional Vitals: Vital Signs Temp Pulse Resp BP Pulse Ox 98.6 F 77 18 133/81 96 12/06/16 08:00 12/06/16 08:00 12/06/16 08:00 12/06/16 08:00 12/06/16 08:00 Period Temp Pulse Resp BP Sys/Jerez Pulse Ox Last 24 Hr 96.8 F-98.6 F 70-79 16-18 124-150/77-87 93-96 Intake and Output 12/05/16 12/06/16 12/06/16 21:59 05:59 13:59 Intake Total 680 / 680 300 / 300 150 / 150 Output Total 650 / 650 401 / 401 750 / 750 Balance 30 / 30 -101 / -101 -600 / -600 Weight 205 lb 9.6 oz Intake & Output: Intake & Output 12/05/16 12/06/16 12/06/16 21:59 05:59 13:59 Intake Total 680 / 680 300 / 300 150 / 150 Output Total 650 / 650 401 / 401 750 / 750 Balance 30 / 30 -101 / -101 -600 / -600 Weight 205 lb 9.6 oz Intake: IV 100 / 100 300 / 300 50 / 50 Dextrose 5% in Water 50 100 / 100 50 / 50 50 / 50 ml @ 100 mls/hr IV Q6 GRIS with Zosyn 3.375 gm Rx#: [id number] Sodium Chloride 0.9% 250 250 / 250 ml @ 250 mls/hr IV Q12 GRIS with Vancomycin 1,000 mg Rx#:[id number] Oral 580 / 580 GI Tube Flush 100 / 100 Output: Urine Catheter Amount 300 / 300 Void Amount 650 / 650 400 / 400 450 / 450 # of times incontinent of urine Other: Meal Lunch Breakfast Percent of Meal Consumed 75% 25% # Voids 1 # Bowel Movements 1 1 Exam: on exam, he is in no acute distress, and is lying in bed. His daughter is in the room with him this morning. Neck is supple without obvious lymphadenopathy or JVD. Cardiac exam shows regular rate and rhythm. Lungs:Have generally decreased breath sounds, but otherwise ungs are fairly clear. There may be just a few crackles at the right base. Abdomen: Is soft and nontender. Extremities: Lower extremities show no significant edema. The left wrist seems less swollen today, and he has better movement, but it is still somewhat pink. The right arm is swollen both below and above the elbow, when compared to the left side.however, this does appear improved over yesterday. Neurologic exam: He is alert and oriented 3, and exam is nonfocal, but he does appear generally somewhat weak. I believe this is just deconditioning. Medical - PN: Obj Da Medical - PN: Obj Da - Labs CBC & Chem 7: 12/06/16 04:25 12/05/16 04:00 Labs: Abnormal Lab Results 12/06/16 12/05/16 12/05/16 04:25 04:00 04:00 WBC 14.6 H 20.2 H RBC 3.87 L 3.80 L Hgb 12.7 L 12.3 L Hct 39.4 L 38.7 L MCV 101.9 H 101.7 H Gran % 87.0 H 92.5 H Lymph % (Auto) 10.8 L 4.6 L Gran # 12.7 H 18.7 H Lymph # 0.9 L BUN 36 H Glucose 133 H Uric Acid Calcium 8.4 L Phosphorus Direct Bilirubin 0.4 H AST 84 H ALT 311 H Lactate Dehydrogenase 302 H Albumin 2.6 L Globulin 3.8 H Albumin/Globulin Ratio 0.7 L Vancomycin Trough 12/04/16 12/04/16 12/04/16 08:55 05:05 05:05 WBC 23.1 H RBC 3.63 L Hgb 12.0 L Hct 37.3 L MCV 102.9 H Gran % 93.2 H Lymph % (Auto) 3.8 L Gran # 21.5 H Lymph # 0.9 L BUN 33 H Glucose 204 H Uric Acid 2.4 L Calcium 8.4 L Phosphorus 2.3 L Direct Bilirubin 0.4 H AST 178 H ALT 419 H Lactate Dehydrogenase 312 H Albumin 2.4 L Globulin 3.8 H Albumin/Globulin Ratio 0.6 L Vancomycin Trough 15.9 H right upper extremity venous Doppler did not show DVT yesterday, but did show some swelling in the antecubital fossa. chest x-ray, December 04:Moderate-sized infiltrate at the left base, but retrocardiac region shows slight improvement. Small pleural effusion noted. blood cultures are growing Streptococcus beta group G, sensitive to ceftriaxone , penicillin, clindamycin, erythromycin, vancomycin; intermediate to tetracycline. follow-up chest x-rays pending echocardiogram from December 01, 2016;There is 4 chamber enlargement. Overall left ventricular systolic performance is severely depressed with ejection fraction of 25%. There is a density along the apical endocardiumsuggesting possible flat thrombus. There is mild mitral regurgitation and elevated pulmonary wedge pressure likely due to passive pulmonary congestion. December 01, 2016: -Lactic acid is elevated at 3.1, with follow-up lactic acid of 2.9. -BNP is elevated at 19,955 -EKG shows sinus rhythm, and is probably paced with underlying atrial flutter.there is no old tracing to compare. -cT scan of the shoulder shows no acute fracture but does show a small remote avulsion fracture of the clavicle tip. There is mild subluxation of the before meals joint which is likely chronic. There is probablechronic rotator cuff tear , as well as severe glenohumeral and AC degeneration. -cT scan of the chest, abdomen, pelvis: Shows mild pancreatic duct dilation. 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 Moderate patchy alveolar infiltrates in both posterior upper and lower lobes with bilateral effusions. 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 -CT scan of the brain shows no hemorrhage, but does show mild atrophy and chronic ischemic changes. There is also a remote infarct in the left frontal lobe about 1 cm in size, as well as right frontal lobe remote infarct and remote infarct of the right superior cerebellum. There is severe bilateral maxillary and ethmoid sinusitis -cT scan of the neck shows no definite acute fractures, but does show C6-7 spondylolisthesis. Also noted is an 11 mm nodule arising from the right inferior thyroid lobe, likely a benign adenoma. Meds: Medications Acetaminophen (Tylenol) 650 mg PO Q8 [facility] Last Admin: 12/06/16 05:38 Dose: 650 mg Acetaminophen/Hydrocodone Bitart (Doerun 5/325mg) 1 tab PO Q4HP PRN PRN Reason: Pain Last Admin: 12/05/16 08:06 Dose: 1 tab Albuterol Sulfate (Ventolin) 2.5 mg NEB PRN PRN PRN Reason: Shortness Of Breath Allopurinol (Zyloprim) 100 mg PO BID [facility] Last Admin: 12/06/16 08:49 Dose: 100 mg Bisacodyl (Dulcolax) 10 mg ND Q2-3DAYS PRN PRN Reason: Constipation Dabigatran (Pradaxa) 150 mg PO BID [facility] Last Admin: 12/06/16 09:05 Dose: 150 mg Docusate Sodium (Colace) 100 mg PO BID PRN PRN Reason: Constipation Last Admin: 12/05/16 08:08 Dose: 100 mg Famotidine (Pepcid) 20 mg IV Q12 [facility] Last Admin: 12/06/16 08:51 Dose: 20 mg Finasteride (Proscar) 5 mg PO DAILY [facility] Last Admin: 12/06/16 08:46 Dose: 5 mg Hydromorphone HCl (Dilaudid) 0.5 mg IV Q1HP PRN PRN Reason: Pain Piperacillin Sod/Tazobactam (Sod 3.375 gm/ Dextrose) 50 mls @ 100 mls/hr IV Q6 [facility] Last Infusion: 12/06/16 06:10 Dose: Infused Vancomycin HCl 1,000 mg/ (Sodium Chloride) 250 mls @ 250 mls/hr IV Q12 [facility] Last Admin: 12/06/16 09:04 Dose: 250 mls/hr Lisinopril (Zestril) 5 mg PO BID [facility] Last Admin: 12/06/16 08:48 Dose: 5 mg Lorazepam (Ativan) 0.5 mg PO DAILYP PRN PRN Reason: Anxiety Magnesium Hydroxide (Milk Of Magnesia) 30 ml PO DAILYP PRN PRN Reason: Constipation Metoprolol Succinate (Toprol Xl) 50 mg PO BID [facility] Last Admin: 12/06/16 08:45 Dose: 50 mg Multivitamins/Minerals (Ocuvite) 1 tab PO DAILY [facility] Last Admin: 12/05/16 21:00 Dose: 1 tab Naloxone HCl (Narcan) 0.1 mg IV Q2MIN PRN PRN Reason: Opiate Reversal Ondansetron HCl (Zofran) 4 mg IV Q4-6HP PRN PRN Reason: Nausea And Vomiting [facility] Last Admin: 12/06/16 08:47 Dose: 10 mg Senna (Senokot) 1 tab PO HSP PRN PRN Reason: Constipation Sertraline HCl (Zoloft) 75 mg PO DAILY [facility] Last Admin: 12/06/16 08:44 Dose: 75 mg Sodium Chloride (Saline Flush) 10 ml IV Q8 [facility] Last Admin: 12/06/16 05:39 Dose: 10 ml Spironolactone (Aldactone) 12.5 mg PO BIDD [facility] Last Admin: 12/06/16 08:47 Dose: 12.5 mg Vitamin D (Vitamin D3) 1,000 unit PO DAILY [facility] Last Admin: 12/06/16 08:47 Dose: 1,000 unit Medical - PN: A/P - Time Spent With Patient Total time spent is greater than 50% in coordination of care (as documented) at patient's floor/unit and/or counseling patient: (1) 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 Infectious disease. this patient presents with SIRS syndrome, with leukocytosis, acute renal failure , lactic acidosis, and altered mental status. Source seems to be most likely bilateral pneumonia, seen on chest CT. -the patient is responding nicely to aggressive IV fluids and IV antibiotics. -blood cultures grew beta strep, which is sensitive to penicillins. -his white blood cell count continues to run high, although has dropped from 23 , down to 14 today. his lungs appear to be doing fine. -he reports he did receive both a flu shot and a Pneumovax recently. -head CT suggests bilateral sinusitis. IV antibiotic should help with this. #2. Cardiac. -Although the patient denies any specific heart symptoms,he does present with elevated troponin and BNP. I discussed this case briefly with Dr. Dunham of cardiology at [facility]. He did not feel, since the patient was not having overt cardiac symptoms,that this was a reason for transfer. He suggested we continue to monitor, and check an echocardiogram. -the patient does have elevated troponin and CPK, more suggestive of her recent cardiac event. Clinically, however, he has been stable. -IV fluids have been discontinued . He seems to be tolerating the change from Betapace over to Toprol-XL, plus lisinopril and Aldactone. creatinine and potassium are fine today. -History of quite a ways ahead on his fluids, side also added Lasix today. -He will definitely require cardiology follow-up at discharge. -patient appears to also have a history of atrial fibrillation, and continues on pradaxa. there is a suggestion of possible left ventricular thrombus. The patient is anticoagulated with pradaxa, and we will continue this for now. #3.pulmonary. -The patient is oxygenating well, and does not really report much in the way of pulmonary symptoms. #4. Neurologic. The patient denies any neurologic symptoms, other than progressive generalized weakness over the last day or so. He does have remote strokes on his head CT, and does continue on pradaxa, for his underlying atrial fib/flutter. #5. CODE STATUS: The patient reports he would like to have a no CODE STATUS. . He does have a living will.his daughter has his POA. #6. DVT prophylaxis: Continue Pradaxa. #7. Shoulder pain, status post fall. he is also having continued pain in the left wrist and elbow. we started him on scheduled Tylenol and his pain is getting better, but today is a little worse again. X-rays were unrevealing. - We will avoid NSAIDs, given his anticoagulation and coronary issues. He does have when necessary Doerun ordered. I think I will start low-dose prednisone in case this is a gout flare. -e seems to be doing a bit better since I started low-dose prednisone plus scheduled Tylenol. #8. dehydration. improved after IV fluids, but discontinue today, and encourage increased oral intake, particularly after his swallow evaluation.swallow eval that he was fine with regular textures and thin liquids, but no straws. #9.GI. -Family reported an episode of emesis, but the patient has not had emesis here. -liver enzymes have been a bit elevated, but I suspect this is passive liver congestion due to his CHF. This is improving every day. #10. Acute renal failure, presumably due to dehydration. improved with hydration. #11. Presumed history of depression. Continue sertraline. I will hold mirtazapine until we are sure he is quite alert. #12. Nursing staff does not feel that he is swallowing really well, so a speech therapy eval was ordered.he now feels that he understands better now how to safely swallow. #13. Swelling of his right arm . Doppler showed small fluid collection at the antecubital fossa, but no DVT. #14. Disposition. I think the patient has made enough progress, that he will be ready to transfer to [facility] tomorrow, to continue working hard on rehabilitation and strengthening, prior to returning home. I discussed with his daughter that he needs to see his heart doctor, preferably this coming week , to review his test results and his current medication regimen. this visit today took approximately 35 minutes, to interview and examine the patient, review test results, review plan of care with the patient and his daughter, and write orders. Medical - PN: Qual - Stroke Symptom Onset Unknown: No - VTE Deep Vein Thrombosis/Pulmonary Embolism Present on Admission: No
[2016-12-06] MEDS ORDERED: FUROSEMIDE 20 MG TABLET PO ONE (12:08)
[2016-12-06] MEDS: VIT A,C & E/LUTEIN/MINERALS TABLET PO SCH ×2 (12:49→20:56)
[2016-12-07] MEDS: PIPERACILLIN SODIUM/TAZOBACTAM 3.375 GM in DEXTROSE 5% IN WATER 50 ML IV SCH (05:32)
[2016-12-07] MEDS: 0.9 % SODIUM CHLORIDE 10 ML SYRINGE IV SCH ×3 (05:33→20:12)
[2016-12-07] MEDS: ACETAMINOPHEN 325 MG TABLET PO SCH ×3 (05:34→21:33)
[2016-12-07 06:15] LABS: Basophils # (Auto) 0 K/mcL (0.0-0.3); Basophils % (Auto) 0 % (0.0-2.0); Eosinophils # (Auto) 0.2 K/mcL (0.0-0.7); Eosinophils % (Auto) 1.3 % (0.0-7.0); Granulocytes % (Auto) 85.3 % (38.0-78.0); Lymphocytes # (Auto) 1.4 K/mcL (1.5-4.8); Lymphocytes % (Auto) 10.7 % (15.5-49.0); Mean Cell Volume 101.6 fL (80.0-100.0); Mean Corpuscular HGB Conc 32.4 g/dL (31.0-36.0); Mean Corpuscular Hemoglobin 32.9 pg (26.0-34.0); Monocytes # (Auto) 0.3 K/mcL (0.1-0.9); Monocytes % (Auto) 2.7 % (1.0-9.0); Platelet Count 236 K/mcL (140-440); RBC 3.79 M/mcL (4.50-5.90); Red Cell Distribution Width 14.4 % (11.5-14.5)
[2016-12-07 06:42] LABS: ALT/SGPT 147 U/l (0-40); Albumin 2.2 gm/dL (3.2-5.2); Albumin/Globulin Ratio 0.6 (1.0-2.3); Alkaline Phosphatase 74 U/L (39-117); Blood Urea Nitrogen 28 mg/dl (8-23)
[2016-12-07] MEDS: SPIRONOLACTONE 25 MG TABLET PO SCH ×2 (07:48→15:37)
[2016-12-07] MEDS: predniSONE 10 MG TABLET PO SCH (07:48)
--- NOTE | 2016-12-07 09:48 | Discharge Summary ---
Medical - DS: Prov Patient information: Note initiated : 12/07/16 at 9:38 am Service Date, if different from initiated Date: [] Patient: Edson Calixto 86 y/o M admitted on 12/01/16 for Fall/Pneumonia. Chief Complaint: [] Date of admission: 12/01/16 07:05 Discharge date: 12/08/16 Primary care physician: [f_Reg [facility] Care Provider] Admitting clinician: Dilma Salas Consults: Physical Therapy- PT at [facility], Speech Therapy- Regular diet with thin liquids, no straws. Attending physician on discharge: Jessica Nevarez Discharging clinician: Jessica Nevarez Medical - DS: Meds - Discharge Medications Prescriptions: Amoxicillin/Potassium Clav [Augmentin] 500 mg PO Q8H #30 tablet Famotidine [Acid Finance Officer] 20 mg PO BID #60 tab HYDROcodone/APAP 5/325MG [[place] 5/325Mg] 1 tab PO Q4HP PRN #30 tablet PRN Reason: Pain LORazepam [Ativan] 0.5 mg PO DAILYP PRN #10 tablet PRN Reason: Anxiety predniSONE [Prednisone] 10 mg PO QAC #7 tablet Active and Home Medications: Home Medications Allopurinol [Zyloprim] 100 mg PO BID 12/01/16 [History Confirmed 12/01/16 Last Taken Unknown] Dabigatran Etexilate Mesylate [Pradaxa] 150 mg PO BID 12/01/16 [History Confirmed 12/01/16 Last Taken Unknown] Finasteride [Proscar] 5 mg PO DAILY 12/01/16 [History Confirmed 12/01/16 Last Taken Unknown] LORazepam [Ativan] 0.5 mg PO DAILYP PRN 12/01/16 [History Confirmed 12/01/16 Last Taken Unknown] Mirtazapine [Remeron] 7.5 mg PO HS 12/01/16 [History Confirmed 12/01/16 Last Taken Unknown] NIFEdipine [Nifedipine ER] 30 mg PO DAILY 12/01/16 [History Confirmed 12/01/16 Last Taken Unknown] [place]-3/Dha/Epa/Fish Oil [[place] 3 500 Softgel] 1 cap PO BID 12/01/16 [History Confirmed 12/01/16 Last Taken Unknown] Sertraline [Zoloft] 75 mg PO DAILY 12/01/16 [History Confirmed 12/01/16 Last Taken Unknown] Sotalol [Betapace] 40 mg PO BID 12/01/16 [History Confirmed 12/01/16 Last Taken Unknown] Vit A/Vit C/Vit E/Zinc/Copper [Icaps Areds Softgel] 1 each PO DAILY 12/01/16 [ History Confirmed 12/01/16 Last Taken Unknown] Vitamin D3 1,000 unit PO DAILY 12/01/16 [History Confirmed 12/01/16 Last Taken Unknown] Active Medications Acetaminophen (Tylenol) 650 mg PO Q8 [facility] Last Admin: 12/07/16 05:34 Dose: 650 mg Acetaminophen/Hydrocodone Bitart ([place] 5/325mg) 1 tab PO Q4HP PRN PRN Reason: Pain Last Admin: 12/05/16 08:06 Dose: 1 tab Albuterol Sulfate (Ventolin) 2.5 mg NEB PRN PRN PRN Reason: Shortness Of Breath Allopurinol (Zyloprim) 100 mg PO BID [facility] Last Admin: 12/06/16 20:57 Dose: 100 mg Bisacodyl (Dulcolax) 10 mg DE Q2-3DAYS PRN PRN Reason: Constipation Dabigatran (Pradaxa) 150 mg PO BID [facility] Last Admin: 12/06/16 20:57 Dose: 150 mg Docusate Sodium (Colace) 100 mg PO BID PRN PRN Reason: Constipation Last Admin: 12/05/16 08:08 Dose: 100 mg Famotidine (Pepcid) 20 mg IV Q12 [facility] Last Admin: 12/06/16 20:58 Dose: 20 mg Finasteride (Proscar) 5 mg PO DAILY [facility] Last Admin: 12/06/16 08:46 Dose: 5 mg Furosemide (Lasix) 20 mg PO DAILY [facility] Hydromorphone HCl (Dilaudid) 0.5 mg IV Q1HP PRN PRN Reason: Pain Piperacillin Sod/Tazobactam (Sod 3.375 gm/ Dextrose) 50 mls @ 100 mls/hr IV Q6 [facility] Last Infusion: 12/07/16 06:05 Dose: Infused Vancomycin HCl 1,000 mg/ (Sodium Chloride) 250 mls @ 250 mls/hr IV Q12 [facility] Last Infusion: 12/06/16 22:03 Dose: Infused Lisinopril (Zestril) 5 mg PO BID [facility] Last Admin: 12/06/16 20:58 Dose: 5 mg Lorazepam (Ativan) 0.5 mg PO DAILYP PRN PRN Reason: Anxiety Magnesium Hydroxide (Milk Of Magnesia) 30 ml PO DAILYP PRN PRN Reason: Constipation Metoprolol Succinate (Toprol Xl) 50 mg PO BID [facility] Last Admin: 12/06/16 20:57 Dose: 50 mg Multivitamins/Minerals (Ocuvite) 1 tab PO DAILY [facility] Last Admin: 12/06/16 20:56 Dose: 1 tab Naloxone HCl (Narcan) 0.1 mg IV Q2MIN PRN PRN Reason: Opiate Reversal Ondansetron HCl (Zofran) 4 mg IV Q4-6HP PRN PRN Reason: Nausea And Vomiting Last Admin: 12/07/16 02:52 Dose: 4 mg Prednisone (Prednisone) 10 mg PO [facility] Last Admin: 12/07/16 07:48 Dose: 10 mg Senna (Senokot) 1 tab PO HSP PRN PRN Reason: Constipation Sertraline HCl (Zoloft) 75 mg PO DAILY [facility] Last Admin: 12/06/16 08:44 Dose: 75 mg Sodium Chloride (Saline Flush) 10 ml IV Q8 [facility] Last Admin: 12/07/16 05:33 Dose: 10 ml Spironolactone (Aldactone) 12.5 mg PO BIDD [facility] Last Admin: 12/07/16 07:48 Dose: 12.5 mg Vitamin D (Vitamin D3) 1,000 unit PO DAILY [facility] Last Admin: 12/06/16 08:47 Dose: 1,000 unit Medical - DS: Hosp Hospital course: Mr. Calixto is a 86 year old male who presented to the hospital with fall and pneumonia. on 12/01/2016 The patient is someone who can usually take care of himself, but was noted to have fallen a couple of days before presentation. The ER showed that he had X ray compatible with PNA, elevated lactate, wbc, QUIANA and abnl LFT, he was therefore admitted to the hospital for further management. His troponin on presentation was also elevated mildly. Pneumonia- Treated with broad spectrum antibiotics, vancomycin and zosyn, the patient responded to the treatment very well, his blood culture was positive for pansensitive strep, he has had approximately 7 days of abx here, and will need a total of 14 days of antibiotics in light of his bactermia. He will be discharged on augmentin for another 7 days. His hospital stay was complicated with development of C diff infection. He was placed on po vancomycin for samen and he responded within 24 hrs. ON the day of discharge, the patient his having formed stools. Due to the infection and advanced age, the patient was significantly debilitated and will need PT/ OT to help get back to his baseline status. The patient also had flare up of gout during the hospital stay, and has been placed on low dose prednisone for a week to help with same. On presentation, the patient had elevated troponin, the patients case was discussed with [facility] cardiology on 12/02 and no acute intervention was recommended. The patient had an echocardiogram, which revealed poor ejection fraction of 25%, he also possibly has a mural thrombus in the heart. The patient is already anticoagulated, however will need to follow up with cardiology as outpatient within a week or two for further optimization. It is not sure if he is a candidate for AICD placement. Speaking with the daughter it seems he has a pacemaker at this time. it seems it was troponin leak due to sepsis. Shoulder pain/ dislocation: X ray and the CT Scan of the shoulders suggested severe arthritis, and some chr dislocation of the right shoulder. No acute fracture. In light of his dislocation, it may be worth while for him to be evaluated by orthopedic as an outpatient in 2 weeks. During initial presentation, the patient had CT head, C spine, Abdomen and pelvis, The CT neck showed an incidental Thyroid nodule, benign on CT, but the radiologist has advised a repeat USG in 6 months for follow up. This can be followed up by the patients primary provider. 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 MRCP recommended. Pt has a pacemaker hence MRCP cannot be done, he will need to be seen by GI as outpatient for possible ERCP vs EBUS. 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 patient does not have post prandial pain at this time, but may need to be evaluated as outpatient for any interventional procedures. These new findings were discussed with the patient and his daughter. On the day of discharge, the patient has shown improvement, wbc trending down, and clinically patient getting better. He still endorses weakness, which will hopefully get better with therapy. - Time Spent with Patient Total time spent providing and/or coordinating discharge services: Greater than 30 minutes Medical - DS: Exam - Constitutional Vitals: Vital Signs Temp Pulse Pulse Resp BP BP Pulse Ox 12/07/16 08:00 97.9 F 12/07/16 07:55 71 16 149/96 94 12/07/16 03:48 97.7 F 69 18 126/75 95 12/07/16 01:55 67 12/06/16 23:11 98.0 F 67 16 137/71 97 12/06/16 22:40 71 12/06/16 21:19 76 12/06/16 20:00 97.9 F 77 18 151/89 95 12/06/16 19:15 72 12/06/16 18:45 68 16 95 12/06/16 16:00 97.8 F 73 132/76 96 12/06/16 12:00 97.8 F 67 16 143/67 Intake and Output 12/06/16 12/07/16 12/07/16 21:59 05:59 13:59 Intake Total 50 / 50 900 / 900 50 / 50 Output Total 1300 / 1300 603 / 603 Balance -1250 / -1250 297 / 297 50 / 50 Intake: IV 50 / 50 300 / 300 50 / 50 Dextrose 5% in Water 50 50 / 50 50 / 50 50 / 50 ml @ 100 mls/hr IV Q6 GRIS with Zosyn 3.375 gm Rx#: [id number] Sodium Chloride 0.9% 250 250 / 250 ml @ 250 mls/hr IV Q12 GRIS with Vancomycin 1,000 mg Rx#:[id number] Oral 600 / 600 Output: Void Amount 1300 / 1300 600 / 600 # of times incontinent of 3 / 3 urine Other: # Voids 2 Weight 208 lb General appearance: cooperative, no acute distress - Head Head exam: Present: atraumatic, normal inspection, normocephalic - Eye Eye exam: Absent: periorbital swelling, scleral icterus - Respiratory Respiratory exam: Present: normal respiratory exam. Absent: accessory muscle use, rhonchi, wheezes - Cardiovascular Cardiovascular exam: Present: irregular rhythm, +S1, +S2 - GI/Abdominal GI/Abdominal exam: Present: normal bowel sounds, soft. Absent: rigid, tenderness - Neurological Exam Neurological exam: Present: alert, motor sensory deficit Medical - DS: Data Labs on day of discharge: Labs from last 24 hours 12/07/16 12/07/16 04:00 04:00 WBC 13.1 H RBC 3.79 L Hgb 12.5 L Hct 38.5 L MCV 101.6 H MCH 32.9 MCHC 32.4 RDW 14.4 Plt Count 236 MPV 9.5 Gran % 85.3 H Lymph % (Auto) 10.7 L [place] % (Auto) 2.7 Eos % (Auto) 1.3 Baso % (Auto) 0 Gran # 11.2 H Lymph # 1.4 L [place] # 0.3 Eos # 0.2 Baso # 0 Sodium 139 Potassium 4.1 Chloride 105 Carbon Dioxide 23 Anion Gap 11.0 BUN 28 H Creatinine 0.9 GFR Calculation 76 Glucose 83 Calcium 8.0 L Total Bilirubin 1.3 H AST 42 H ALT 147 H Alkaline Phosphatase 74 Total Protein 5.8 L Albumin 2.2 L Globulin 3.6 Albumin/Globulin Ratio 0.6 L Medical - DS: A/P - Patient/Caregiver Discharge Instructions Activity: as per physical therapy, increase activity as tolerated Diet: Cardiac Additional Instructions: Needs to follow up with PCP in 7 days Needs cardiology follow up in 1-2 weeks Needs Orthopedic follow up in 2 weeks Prescriptions: Amoxicillin/Potassium Clav [Augmentin] 500 mg PO Q8H #30 tablet Famotidine [Acid Finance Officer] 20 mg PO BID #60 tab HYDROcodone/APAP 5/325MG [[place] 5/325Mg] 1 tab PO Q4HP PRN #30 tablet PRN Reason: Pain LORazepam [Ativan] 0.5 mg PO DAILYP PRN #10 tablet PRN Reason: Anxiety predniSONE [Prednisone] 10 mg PO QAMCC #7 tablet Other Amb Orders: OT Discharge Order Location: Determined By Patient Physical Therapy at Discharge - General Location: Determined By Patient - Follow up Plan Follow up with: Tashi Pitt MD [Primary Care Provider] - Disposition: Xfer SNF Prognosis: Fair Rehab Potential: Fair I certify that the patient requires SNF services: Yes Overall status at discharge: patient is progressing back to baseline Medical - DS: Qual - VTE Deep Vein Thrombosis/Pulmonary Embolism Present on Admission: No
--- NOTE | 2016-12-07 10:03 | Internal Med Progress Note ---
Medical - PN: Subj Patient information: Note initiated : 12/07/16 at 10:01 am Service Date, if different from initiated Date: [] Patient: Edson Calixto 86 y/o M admitted on 12/01/16 for Fall/Pneumonia. Chief Complaint: [] Interval history: December 01, 2016: History of present illness:Mr. Calixto is a 86 year old male who normally lives alone and cares for himself. He fell 2 days ago, and landed on his right shoulder, and was seen in our emergency room X-rays were negative , and he was sent back home. Yesterday his family stopped by to check on him, and found him on the floor. He said that he tried to sit down in a chair and thinks he tilted forward and then just was too weak to get up. He has been very thirsty. Family felt he was more confused than usual. ER evaluation showed elevated lactic acid, leukocytosis, acute renal failure, elevated LFTs, and chest x-ray consistent withbilateral pneumonia. The patient reports that he was carrying in some things for his 2 days ago , and thinks he just tripped over the back and fell down. Prior to that he said he had been started on prednisone for complaints of joint pain, as his doctor thought he might of had an acute gout flare. He otherwise denies recent fever or chills headaches or dizziness, new eye or ear symptoms, sore throat or cough. e quite adamantly denies any recent chest discomfort, heaviness, palpitations, shortness of breath or wheezing. December 02, 2016: Yesterday, the patient's troponin came back positive. This was reviewed with cardiology at [facility], but he did not seem interested in having the patient transferred over. He did suggest that we check a follow-up echocardiogram. echocardiogram shows severe LV dysfunction with an ejection fraction of 25%. The patient continues to deny any recent history of chest pain or shortness of breath. He does complain of left arm pain, but has had fairly persistent complaints of left wrist and arm and elbow pain since a fall a couple of days ago and his daughter reports today that he has a bruise over his elbow that he did not used to have. The patient notes he continues to have pain in his left wrist and elbow and a bit in his right wrist as well as his right shoulder. Otherwise, he says he overall is feeling better. He denies fever or chills, chest pain or palpitations, shortness of breath or significant cough. He denies abdominal pain , nausea or vomiting, diarrhea, dysuria. December 03, 2016: Today, the patient says he does think he is feeling better overall than yesterday. His pain is definitely better controlled in his shoulders and arms and wrists and his nurse notes the swelling of the left wrist is improved. She notes his O2 saturation did drop to 89% when he was up with physical therapy, but otherwise he is maintaining sats on room air. He does have a better appetite today, and seems to want to eat more. He was complaining of constipation, so did receive some milk of magnesia. otherwise,he denies fever or chills chest pain or palpitations, shortness of breath or significant cough, abdominal pain, nausea or vomiting or diarrhea, or dysuria. December 04, 2016: Today, the patient says he is feeling pretty well. He is having a little more pain in his left foot and left wrist today, and wonders if his gout is acting up. Otherwise, he says he is not coughing much. He is not feeling particularly short of breath. He denies fever or chills, chest pain or palpitations, abdominal pain, nausea or vomiting, dysuria. December 05, 2016: today, the patient says he is doing okay except that he is still just quite fatigued. He is having some pain in his right upper arm around the biceps area, and blames that on his recent fall. He says physical therapy is working with him on mobilizing. he and his daughter both note that the arm seems a little more swollen today. I did start him on low-dose prednisone last night, as he was having more wrist and foot pain, and we thought it might be due to gout. Think that both the left wrist and right foot pain have improved. Otherwise he denies feeling particularly short of breath or having a cough. he denies fever or chills, chest pain or palpitations, abdominal pain, nausea or vomiting or diarrhea, or dysuria. We were planning on trying to send him to [facility] today for rehabilitation, but he doesn't seem as perky as he was yesterday, and his white blood cell count is higher this morning as well, so we thought it would be safer to watch him another day. December 06, 2016: Today, the patient continues to complain of feeling rather weak , but admits that he has less cough and is definitely less short of breath and before. His daughter notes that he is able to walk to and from the bathroom with some assistance. They're wondering what his echo looks like on the test before this one, but we do not have his cardiac records. Otherwise, he denies fever or chills, headaches or dizziness, or palpitations or significant shortness of breath, abdominal pain. He reports diarrhea, but the nurses have checked his stools and they are formed and soft, with no evidence of C. difficile. He denies dysuria. he did report a few minutes of left-sided chest discomfort this morning, but he blames that on swallowing his Tylenol pills. He said it resolved after he drank some water, and only lasted 2-3 minutes. He is encouraged to notify us if he has any chest discomfort at all. joint pain in general, seems improved today. The right upper arm is less swollen today. The venous Doppler on his arm yesterday did not show DVT, but did show a fluid collection. White blood cell count is coming back down again today. December 07: The patient this AM noted to be sitting comfortably in the chair, did not report any new complaints, but was noted to have diarrhea. The patient only reported fatigue. He was ready for discharge today pending Cdiff studies, which unfortunately came back positive, the patient will therefore be kept another day in the hospital and started on po vancomycin. The patients blood cultures were postive for strep, given this culture, I do not see any value in treating with Zosyn. Will stop same. Plan for D/C SNF once diarrhea abates. Pertinent ROS: No headache or dizziness. no fever or chills no chest pain or palpitations No cough or shortness of breath No abdominal pain, but noted to have diarrhea. Additional PMFSH (Level 3 Only): PMH reviwed no h/o cdiff. - Constitutional Vitals: Vital Signs Temp Pulse Resp BP Pulse Ox 97.9 F 71 16 149/96 94 12/07/16 08:00 12/07/16 07:55 12/07/16 07:55 12/07/16 07:55 12/07/16 07:55 Period Temp Pulse Resp BP Sys/Jerez Pulse Ox Last 24 Hr 97.7 F-98.0 F 67-77 16-18 126-151/67-96 94-97 Intake and Output 12/06/16 12/07/16 12/07/16 21:59 05:59 13:59 Intake Total 50 / 50 900 / 900 50 / 50 Output Total 1300 / 1300 603 / 603 Balance -1250 / -1250 297 / 297 50 / 50 Weight 208 lb Intake & Output: Intake & Output 12/06/16 12/07/16 12/07/16 21:59 05:59 13:59 Intake Total 50 / 50 900 / 900 50 / 50 Output Total 1300 / 1300 603 / 603 Balance -1250 / -1250 297 / 297 50 / 50 Weight 208 lb Intake: IV 50 / 50 300 / 300 50 / 50 Dextrose 5% in Water 50 50 / 50 50 / 50 50 / 50 ml @ 100 mls/hr IV Q6 GRIS with Zosyn 3.375 gm Rx#: [id number] Sodium Chloride 0.9% 250 250 / 250 ml @ 250 mls/hr IV Q12 GRIS with Vancomycin 1,000 mg Rx#:[id number] Oral 600 / 600 Output: Void Amount 1300 / 1300 600 / 600 # of times incontinent of 3 / 3 urine Other: # Voids 2 General appearance: cooperative, no acute distress - Head Head exam: Present: atraumatic, normal inspection - ENT ENT exam: Present: mucous membranes moist - Neck Neck exam: Present: normal inspection - Respiratory Respiratory exam: Present: normal respiratory exam. Absent: accessory muscle use, respiratory distress, rhonchi, stridor, wheezes - Cardiovascular Cardiovascular exam: Present: normal rate and rhythm, +S1, +S2 - GI/Abdominal GI/Abdominal exam: Present: normal bowel sounds, soft. Absent: firm, guarding, rebound, rigid, tenderness - Neurological Exam Neurological exam: Present: alert, motor sensory deficit, oriented X3 - Psychiatric Psychiatric exam: Present: normal affect, normal mood Medical - PN: Obj Da - Labs CBC & Chem 7: 12/07/16 04:00 12/07/16 04:00 Labs: Abnormal Lab Results 12/07/16 12/07/16 12/06/16 04:00 04:00 04:25 WBC 13.1 H 14.6 H RBC 3.79 L 3.87 L Hgb 12.5 L 12.7 L Hct 38.5 L 39.4 L MCV 101.6 H 101.9 H Gran % 85.3 H 87.0 H Lymph % (Auto) 10.7 L 10.8 L Gran # 11.2 H 12.7 H Lymph # 1.4 L BUN 28 H Glucose Calcium 8.0 L Total Bilirubin 1.3 H Direct Bilirubin AST 42 H ALT 147 H Lactate Dehydrogenase Total Protein 5.8 L Albumin 2.2 L Globulin Albumin/Globulin Ratio 0.6 L Vancomycin Trough 12/05/16 12/05/16 12/04/16 04:00 04:00 08:55 WBC 20.2 H RBC 3.80 L Hgb 12.3 L Hct 38.7 L MCV 101.7 H Gran % 92.5 H Lymph % (Auto) 4.6 L Gran # 18.7 H Lymph # 0.9 L BUN 36 H Glucose 133 H Calcium 8.4 L Total Bilirubin Direct Bilirubin 0.4 H AST 84 H ALT 311 H Lactate Dehydrogenase 302 H Total Protein Albumin 2.6 L Globulin 3.8 H Albumin/Globulin Ratio 0.7 L Vancomycin Trough 15.9 H Meds: Medications Acetaminophen (Tylenol) 650 mg PO Q8 [facility] Last Admin: 12/07/16 05:34 Dose: 650 mg Acetaminophen/Hydrocodone Bitart ([place] 5/325mg) 1 tab PO Q4HP PRN PRN Reason: Pain Last Admin: 12/05/16 08:06 Dose: 1 tab Albuterol Sulfate (Ventolin) 2.5 mg NEB PRN PRN PRN Reason: Shortness Of Breath Allopurinol (Zyloprim) 100 mg PO BID [facility] Last Admin: 12/06/16 20:57 Dose: 100 mg Bisacodyl (Dulcolax) 10 mg OK Q2-3DAYS PRN PRN Reason: Constipation Dabigatran (Pradaxa) 150 mg PO BID [facility] Last Admin: 12/06/16 20:57 Dose: 150 mg Docusate Sodium (Colace) 100 mg PO BID PRN PRN Reason: Constipation Last Admin: 12/05/16 08:08 Dose: 100 mg Famotidine (Pepcid) 20 mg IV Q12 [facility] Last Admin: 12/06/16 20:58 Dose: 20 mg Finasteride (Proscar) 5 mg PO DAILY [facility] Last Admin: 12/06/16 08:46 Dose: 5 mg Furosemide (Lasix) 20 mg PO DAILY [facility] Hydromorphone HCl (Dilaudid) 0.5 mg IV Q1HP PRN PRN Reason: Pain Vancomycin HCl 1,000 mg/ (Sodium Chloride) 250 mls @ 250 mls/hr IV Q12 [facility] Last Infusion: 12/06/16 22:03 Dose: Infused Lisinopril (Zestril) 5 mg PO BID [facility] Last Admin: 12/06/16 20:58 Dose: 5 mg Lorazepam (Ativan) 0.5 mg PO DAILYP PRN PRN Reason: Anxiety Magnesium Hydroxide (Milk Of Magnesia) 30 ml PO DAILYP PRN PRN Reason: Constipation Metoprolol Succinate (Toprol Xl) 50 mg PO BID [facility] Last Admin: 12/06/16 20:57 Dose: 50 mg Multivitamins/Minerals (Ocuvite) 1 tab PO DAILY [facility] Last Admin: 12/06/16 20:56 Dose: 1 tab Naloxone HCl (Narcan) 0.1 mg IV Q2MIN PRN PRN Reason: Opiate Reversal Ondansetron HCl (Zofran) 4 mg IV Q4-6HP PRN PRN Reason: Nausea And Vomiting Last Admin: 12/07/16 02:52 Dose: 4 mg [facility]) [facility] Last Admin: 12/07/16 07:48 Dose: 10 mg Senna (Senokot) 1 tab PO HSP PRN PRN Reason: Constipation Sertraline HCl (Zoloft) 75 mg PO DAILY [facility] Last Admin: 12/06/16 08:44 Dose: 75 mg Sodium Chloride (Saline Flush) 10 ml IV Q8 [facility] Last Admin: 12/07/16 05:33 Dose: 10 ml Spironolactone (Aldactone) 12.5 mg PO BIDD [facility] Last Admin: 12/07/16 07:48 Dose: 12.5 mg Vitamin D (Vitamin D3) 1,000 unit PO DAILY [facility] Last Admin: 12/06/16 08:47 Dose: 1,000 unit Medical - PN: A/P - Time Spent With Patient Total time spent is greater than 50% in coordination of care (as documented) at patient's floor/unit and/or counseling patient: (1) Clostridium difficile diarrhea Status: Acute Assessment and plan: Patient had diarrhea overnight Placed on contact isolation Cdiff test reported positive Initial plan for D/c stopped, patient will be started on po vancomycin, possible D/C once diarrhea resolves Current Visit: Yes (2) Congestive heart failure (CHF) Status: Acute Assessment and plan: Patient was on sotalol, nifidipine, which is discontined Patient now on metoprolol, aldacotone lisinopril as per guidelines. Potassium is stable The patient had mild bump in the troponin, which needs to be followed by cardiology as outpatient. 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 Current Visit: Yes (6) Thyroid nodule Status: Acute Assessment and plan: Noted on CT Scan appears as benigh nodule Will likely need USG in 6 months. Current Visit: Yes (7) Pancreatic duct dilated Status: Acute Assessment and plan: Noted on CT Scan Patient notes he has pacemaker, therefore MRI cannot be done he may benefit from a GI eval, for possible ERCP as outpatient. Will defer to management by PCP on this. Current Visit: Yes (8) Pneumonia Status: Acute Assessment and plan: strep group G On Vancomycin for same was on zosyn and vancomycin But zosyn stopped after development of Cdiff Given blood cultures were positive, the patient will need atleast 14 days of antibiotics, today will be da 05/12, on d/c plan on augmentin He will need to continue the vancomycin 14 days after the last dose of oral antibiotic for PNA Current Visit: Yes (9) Atrial fibrillation and flutter Status: Acute Assessment and plan: HR stable on metoprolol and pradaxa continue same. Current Visit: Yes Medical - PN: Qual - Stroke Symptom Onset Unknown: No - VTE Deep Vein Thrombosis/Pulmonary Embolism Present on Admission: No
[2016-12-07] MEDS: FINASTERIDE 5 MG TABLET PO SCH (10:04)
[2016-12-07] MEDS: VITAMIN D3 1,000 UNIT TABLET PO SCH (10:04)
[2016-12-07] MEDS: FAMOTIDINE/PF 20 MG/2 ML VIAL IV SCH ×2 (10:04→20:10)
[2016-12-07] MEDS: SERTRALINE 50 MG TABLET PO SCH (10:05)
[2016-12-07] MEDS: METOPROLOL SUCCINATE 25 MG TAB.XL.24H PO SCH ×2 (10:05→20:11)
[2016-12-07] MEDS: LISINOPRIL 5 MG TABLET PO SCH ×2 (10:06→20:11)
[2016-12-07] MEDS: ALLOPURINOL 100 MG TABLET PO SCH ×2 (10:06→20:11)
[2016-12-07] MEDS: FUROSEMIDE 20 MG TABLET PO SCH (10:06)
[2016-12-07] MEDS: VANCOMYCIN 1,000 MG in 0.9 % SODIUM CHLORIDE 250 ML IV SCH ×2 (10:32→20:11)
[2016-12-07] MEDS: DABIGATRAN ETEXILATE MESYLATE 75 MG CAPSULE PO SCH ×2 (11:07→20:10)
[2016-12-07] MEDS: VANCOMYCIN ORAL SOL 1,000 MG/10 ML BOTTLE PO SCH ×3 (11:09→20:11)
[2016-12-07] MEDS: VIT A,C & E/LUTEIN/MINERALS TABLET PO SCH (11:16)
[2016-12-07] MEDS ORDERED: VIT A,C & E/LUTEIN/MINERALS TABLET PO SCH (21:00)
[2016-12-08] MEDS: ACETAMINOPHEN 325 MG TABLET PO SCH (05:58)
[2016-12-08] MEDS: 0.9 % SODIUM CHLORIDE 10 ML SYRINGE IV SCH (05:59)
[2016-12-08 06:29] LABS: Basophils # (Auto) 0 K/mcL (0.0-0.3); Basophils % (Auto) 0.1 % (0.0-2.0); Eosinophils # (Auto) 0.2 K/mcL (0.0-0.7); Eosinophils % (Auto) 1.7 % (0.0-7.0); Granulocytes % (Auto) 82.4 % (38.0-78.0); Lymphocytes # (Auto) 1.5 K/mcL (1.5-4.8); Lymphocytes % (Auto) 12.5 % (15.5-49.0); Mean Cell Volume 102.6 fL (80.0-100.0); Mean Corpuscular HGB Conc 32.4 g/dL (31.0-36.0); Mean Corpuscular Hemoglobin 33.2 pg (26.0-34.0); Monocytes # (Auto) 0.4 K/mcL (0.1-0.9); Monocytes % (Auto) 3.3 % (1.0-9.0); Platelet Count 253 K/mcL (140-440); RBC 3.69 M/mcL (4.50-5.90); Red Cell Distribution Width 14.6 % (11.5-14.5)
[2016-12-08 07:21] LABS: ALT/SGPT 115 U/l (0-40); Albumin 2.3 gm/dL (3.2-5.2); Albumin/Globulin Ratio 0.7 (1.0-2.3); Alkaline Phosphatase 77 U/L (39-117); Bilirubin,Direct 0.5 mg/dL (0.0-0.3); Blood Urea Nitrogen 27 mg/dl (8-23); Gamma Glutamyl Transpeptidase 63 U/L (8-61); Magnesium 1.9 mg/dL (1.6-2.5); Phosphorous 3.2 mg/dL (2.7-4.5); Uric Acid 2.9 mg/dL (2.5-8.0)
[2016-12-08] MEDS: FAMOTIDINE/PF 20 MG/2 ML VIAL IV SCH (08:30)
[2016-12-08] MEDS: METOPROLOL SUCCINATE 25 MG TAB.XL.24H PO SCH (08:30)
[2016-12-08] MEDS: FUROSEMIDE 20 MG TABLET PO SCH (08:31)
[2016-12-08] MEDS: ALLOPURINOL 100 MG TABLET PO SCH (08:31)
[2016-12-08] MEDS: DABIGATRAN ETEXILATE MESYLATE 75 MG CAPSULE PO SCH (08:46)
[2016-12-08] MEDS: FINASTERIDE 5 MG TABLET PO SCH (08:47)
[2016-12-08] MEDS: VITAMIN D3 1,000 UNIT TABLET PO SCH (08:47)
[2016-12-08] MEDS: LISINOPRIL 5 MG TABLET PO SCH (08:53)
[2016-12-08] MEDS: SERTRALINE 50 MG TABLET PO SCH (08:53)
[2016-12-08] MEDS: SPIRONOLACTONE 25 MG TABLET PO SCH (08:53)
[2016-12-08] MEDS: predniSONE 10 MG TABLET PO SCH (09:30)
[2016-12-08] MEDS: VANCOMYCIN ORAL SOL 1,000 MG/10 ML BOTTLE PO SCH ×2 (09:30→12:11)
[2016-12-08] MEDS ORDERED: VANCOMYCIN 1,000 MG in 0.9 % SODIUM CHLORIDE 250 ML IV SCH (21:00)
== END 2016-12-08 15:00 | DRG 194 ==
LOC: ED 01:03 → ICU 07:00 → MEDSUR 12-03 15:00 → ICU 12-04 15:12
PROVIDERS: ADMIT Internal Medicine; ATTEND Internal Medicine

== ENCOUNTER 2017-09-25 16:04 | Inpatient (IN) ==
[2017-09-25] MEDS ORDERED: ONDANSETRON 4 MG/2 ML VIAL IV ONE (16:31)
[2017-09-25] MEDS: HYDROmorphone 2 MG/ML SYRINGE IV PRN ×2 (16:39→20:55)
[2017-09-25 18:09] LABS: Basophils # (Auto) 0.1 K/mcL (0.0-0.3); Basophils % (Auto) 0.8 % (0.0-2.0); Eosinophils # (Auto) 0.2 K/mcL (0.0-0.7); Eosinophils % (Auto) 2.2 % (0.0-7.0); Granulocytes % (Auto) 68.6 % (38.0-78.0); Lymphocytes # (Auto) 2.1 K/mcL (1.5-4.8); Mean Cell Volume 105.2 fL (80.0-100.0); Mean Corpuscular HGB Conc 33.2 g/dL (31.0-36.0); Monocytes # (Auto) 0.5 K/mcL (0.1-0.9); Monocytes % (Auto) 5.4 % (1.0-12.0); Platelet Count 193 K/mcL (140-440); RBC 3.85 M/mcL (4.50-5.90); Red Cell Distribution Width 15.1 % (11.5-14.5)
[2017-09-25 18:24] LABS: ALT/SGPT 26 U/l (0-40); Albumin/Globulin Ratio 1.2 (1.0-2.3); Alkaline Phosphatase 117 U/L (39-117); Blood Urea Nitrogen 21 mg/dl (8-23)
[2017-09-25] MEDS ORDERED: ONDANSETRON 4 MG/2 ML VIAL IV PRN (19:27)
[2017-09-25] MEDS ORDERED: NALOXONE HCL 0.4 MG/ML VIAL IV PRN (19:27)
[2017-09-25] MEDS ORDERED: ACETAMINOPHEN 325 MG TABLET PO PRN (19:27)
[2017-09-25] MEDS ORDERED: HYDROcodone/APAP 5/325MG TABLET PO PRN (19:27)
[2017-09-25] MEDS ORDERED: 0.9 % SODIUM CHLORIDE 1,000 ML IV SCH (19:30)
[2017-09-25] MEDS ORDERED: HYDROmorphone 2 MG/ML SYRINGE IV PRN (19:42)
[2017-09-25] MEDS ORDERED: LIDOCAINE JEL 2% 1 TUBE 30GM TOPICAL ONE (19:54)
[2017-09-25] MEDS ORDERED: TRANEXAMIC ACID 1,000 MG/10 ML VIAL IV ONE (21:36)
--- NOTE | 2017-09-25 21:59 | Emergency Department Note ---
Lower Extremity Injury HPI - General Chief Complaint: Extremity Injury, Lower Stated Complaint: R hip pain r/t fall Time Seen by Provider: 09/25/17 16:23 Source: patient, EMS Mode of arrival: EMS Limitations: no limitations - History of Present Illness HPI Narrative: Patient reports that he was moving a chair outside when his slipper came off and his foot caught on it and he fell landing on his right knee and hip causing abrasions over the right knee and right elbow and immediate pain in the right hip. States he cannot bear weight, denies lower back pain, states the pain is over the greater trochanter region. Very uncomfortable to move in all ranges of motion, denies numbness/ tingling in the leg. Denies hitting his head or Loss of consciousness complaint: hip injury Onset (ago): hour(s) Injury: Right: hip Type of Injury: eversion Place: home Severity: severe Severity scale (1-10): 9 Improves with: nothing Worsens with: weight bearing, movement, palpation Context: fall Associated symptoms: Reports: snap/pop sensation, unable to bear weight Other symptoms: none - Related Data Home Medications Medication Instructions Recorded Confirmed Allopurinol [Zyloprim] 100 mg PO BID 12/01/16 09/25/17 Dabigatran Etexilate Mesylate 150 mg PO BID 12/01/16 09/25/17 [Pradaxa] Finasteride [Proscar] 5 mg PO DAILY 12/01/16 09/25/17 Mirtazapine [Remeron] 7.5 mg PO HS 12/01/16 09/25/17 [place]-3/Dha/Epa/Fish Oil [[place] 3 1 cap PO BID 12/01/16 09/25/17 500 Softgel] Sertraline [Zoloft] 75 mg PO DAILY 12/01/16 09/25/17 Vit A/Vit C/Vit E/Zinc/Copper 1 each PO DAILY 12/01/16 09/25/17 [Icaps Areds Softgel] Vitamin D3 1,000 unit PO DAILY 12/01/16 09/25/17 Previous Rx's Medication Instructions Recorded Acetaminophen [Tylenol] 650 mg PO Q8 tablet 12/07/16 Amoxicillin/Potassium Clav 500 mg PO Q8H #30 tablet 12/07/16 [Augmentin] Famotidine [Acid [employer]] 20 mg PO BID #60 tab 12/07/16 Furosemide [Lasix] 20 mg PO DAILY tablet 12/07/16 HYDROcodone/APAP 5/325MG [[place] 1 tab PO Q4HP PRN #30 tablet 12/07/16 5/325Mg] LORazepam [Ativan] 0.5 mg PO DAILYP PRN #10 tablet 12/07/16 Lisinopril [Zestril] 5 mg PO BID tablet 12/07/16 Metoprolol Succinate [Toprol Xl] 50 mg PO BID tab.xl.24h 12/07/16 Spironolactone [Aldactone] 12.5 mg PO BIDD tablet 12/07/16 predniSONE [Prednisone] 10 mg PO QAC #10 tablet 12/08/16 Allergies Allergy/AdvReac Type Severity Reaction Status Date / Time No Known Drug Allergies Allergy Verified 08/11/17 10:17 Review of Systems All systems ED: reviewed and negative except as stated. Past Medical History - Past Medical History Medical history: Reports: atrial fibrillation, CVA, hypertension, renal disease , other (chronic anticoagulation, prostate issues, gout) Surgical history ED: Reports: herniorrhaphy, pacemaker/AICD - Social History smoking status: Never smoker Alcohol use: Reports: None Drug use: Reports: none Physical Exam - General Limitations: no limitations General appearance: anxious - Head Head exam: atraumatic - Eye Eye exam: Present: PERRL - Respiratory Respiratory exam: Present: normal lung sounds bilaterally - Cardiovascular Cardiovascular exam: Present: normal heart sounds - Expanded Lower Extremity Exam Hip/Pelvis exam: Present: tenderness, swelling, external rotation, shortening, other (Acute palpation over the greater trochanter region). Absent: normal inspection, full ROM, abrasion, laceration Knee exam: Present: normal inspection, full ROM Lower leg exam: Present: normal inspection, full ROM Ankle exam: Present: normal inspection, full ROM - Back Exam Back exam: Present: normal inspection, tenderness, muscle spasm, paraspinal tenderness. Absent: full ROM - Psychiatric Psychiatric exam: Present: flat affect - Skin Skin exam: Present: warm, dry. Absent: rash Course Vital Signs Temperature 97.9 F 09/25/17 16:09 Pulse Rate 65 09/25/17 16:09 Respiratory Rate 16 09/25/17 16:09 Blood Pressure 169/102 09/25/17 16:09 Pulse Oximetry (%) 95 09/25/17 16:09 Temperature 97.9 F 09/25/17 16:09 Pulse Rate 64 09/25/17 20:01 Respiratory Rate 16 09/25/17 16:09 Blood Pressure 171/100 09/25/17 20:01 Pulse Oximetry (%) 94 09/25/17 20:01 Extremity Injury, Lower - Lab Data Result diagrams: 09/25/17 17:58 09/25/17 17:55 Lab Results 09/25/17 09/25/17 09/25/17 Range/Units 17:55 17:55 17:58 WBC 9.0 (4.5-11.0) K/mcL RBC 3.85 L (4.50-5.90) M/mcL Hgb 13.5 (13.5-16.5) g/dL Hct 40.5 L (41.0-55.0) % MCV 105.2 H (80.0-100.0) fL MCH 35.0 H (26.0-34.0) pg MCHC 33.2 (31.0-36.0) g/dL RDW 15.1 H (11.5-14.5) % Plt Count 193 (140-440) K/mcL MPV 9.3 (7.4-10.4) fL Gran % 68.6 (38.0-78.0) % Lymph % (Auto) 23.0 (15.5-49.0) % [place] % (Auto) 5.4 (1.0-12.0) % Eos % (Auto) 2.2 (0.0-7.0) % Baso % (Auto) 0.8 (0.0-2.0) % Gran # 6.2 (1.8-8.0) K/mcL Lymph # (Auto) 2.1 (1.5-4.8) K/mcL [place] # (Auto) 0.5 (0.1-0.9) K/mcL Eos # (Auto) 0.2 (0.0-0.7) K/mcL Baso # (Auto) 0.1 (0.0-0.3) K/mcL Sodium 142 (133-145) mmol/L Potassium 3.7 (3.3-5.1) mmol/L Chloride 101 (96-108) mmol/L Carbon Dioxide 26 (22-30) mmol/L Anion Gap 15.0 (8-16) BUN 21 (8-23) mg/dl Creatinine 1.1 (0.7-1.2) mg/dl GFR Calculation 59 Glucose 147 H (70-105) mg/dL Calcium 9.6 (8.6-10.4) mg/dl Total Bilirubin 0.7 (0.0-1.0) mg/dL AST 43 H (0-37) U/l ALT 26 (0-40) U/l Alkaline Phosphatase 117 (39-117) U/L NT-Pro-B Natriuret Pep 3944.0 H (0-450) pg/ml Total Protein 7.4 (5.9-8.4) gm/dL Albumin 4.0 (3.2-5.2) gm/dL Globulin 3.4 (2.2-3.7) gm/dL Albumin/Globulin Ratio 1.2 (1.0-2.3) - Radiology Data Radiology results reviewed: Yes I reviewed the patient's radiology results. Disposition Pt seen by [facility]OWER/PA only: No (I did consult with Dr. Carey & Dr. Nevarez on this patient multiple times) Clinical Impression: Right Hip Fracture Summary: I did spent several minutes with the patient, his brother, [id number] and his nephew explain the type of fracture present and the need for surgery, I did call and speak with Dr. Brannon and he asked me to admit the patient under his name for surgery first thing in the morning. Disposition: Xfer As Inpt ([facility]) Condition: Fair
[2017-09-25] MEDS: METOPROLOL TARTRATE 50 MG TABLET PO SCH (22:09)
[2017-09-25] MEDS: METOPROLOL SUCCINATE 25 MG TAB.XL.24H PO SCH (22:09)
[2017-09-25] MEDS: 0.9 % SODIUM CHLORIDE 10 ML SYRINGE IV SCH (22:10)
[2017-09-25 22:11] LABS: Appearance,Urine CLEAR; Bilirubin,Urine NEG (NEG); Color,Urine YELLOW; Glucose,Urine (UA) NEGATIVE (NEG); Leukocyte Esterase,Urine NEG /uL (NEG); Nitrate,Urine NEG (NEG); Protein,Urine NEG (NEG); Specific Gravity,Urine 1.016 (1.000-1.035); Urine Blood NEG mg/dL (<0.03); Urobilinogen,Urine NEG (NEG)
--- NOTE | 2017-09-25 22:28 | History and Physical Report ---
DATE OF ADMISSION: 09/25/2017 HISTORY OF PRESENT ILLNESS: This very pleasant elderly 87-year-old fell on his right hip, had immediate pain, swelling, and deformity. With this, he was unable to continue to ambulate and was seen in the emergency room and diagnosed with a femoral neck fracture on the right hip. He had the deformity and obviously the pain, presented with an x-ray that confirmed the diagnosis. He does have other health problems with congestive heart failure, a prior pacemaker and has been on Pradaxa blood thinner, which was taken this morning. ALLERGIES: He has no known drug allergies. PRIOR SURGERIES: Include a pacemaker for his heart. REVIEW OF SYSTEMS: He does occasionally get short of breath. He is on nasal cannula, but having no difficulty breathing. Was having no chest pain or shortness of breath prior to his fall and is currently having no symptoms. He has no open wounds, lacerations or abrasions on review of systems. PHYSICAL EXAMINATION: GENERAL: A very pleasant 87-year-old male, 5 feet 9 inches, 175 pounds, in pain but no acute distress of breathing or chest pain. LUNGS: He does have a few expiratory wheezes, no crackles or rhonchi. ABDOMEN: He does have an abdomen that is soft and nontender. CARDIOVASCULAR: Occasionally irregular beat with a low grade 1 systolic murmur. EXTREMITIES: His right leg is shortened and externally rotated with a normal dorsal pedis pulse with normal light touch sensation in both lower extremities. He can move his feet. There is an abrasion over the knee, but no open wounds about the hip. TEST REVIEW: His x-ray of the right hip demonstrated a femoral neck fracture, displaced, fairly good bone quality. PLAN: The treatment will be a hemiarthroplasty on the right hip. The patient understands the risks and benefits and agrees to proceed. He would like to have the surgery done here. I did give him the option of transferring. He feels that he would like to have it here. If required, he could be transferred to [facility]. At this point, we discussed all these risks and benefits, understanding he will have to stop the Pradaxa. Will try to wait until tomorrow at noon to do the case and give him 1 gram of tranexamic acid now to help with bleeding. MATILDE:franklin Job ID: [id number] Doc ID: [id number] Abran Brannon MD
[2017-09-26] MEDS ORDERED: ceFAZolin 1 GM VIAL IV SCH (07:00)
--- NOTE | 2017-09-26 07:30 | Emergency Department Note ---
ED Note Addendum Note Addendum: I saw this patient with Oral ROSAS. I agree with his evaluation management and documentation. I ordered preoperative laboratory EKG on him as well-EKG just showed paced rhythm. Laboratories included in the note.
[2017-09-26] MEDS ORDERED: SPIRONOLACTONE 25 MG TABLET PO SCH ×2 (08:00)
--- NOTE | 2017-09-26 08:49 | XRay Report ---
HISTORY: Reason for Exam:hp pain after a fall FINDINGS: There is an acute transverse fracture through the femoral neck. The shaft is retracted proximally and there is some impaction at the fracture site. The femoral head remains aligned with the acetabulum. There is mild narrowing of the joint space superiorly and laterally, along with small marginal spurs. The underlying bones are osteopenic. Mild arthritis is present in the left hip. A moderate amount calcified plaque is present in the aorta and iliac arteries. IMPRESSION: Fractured right femoral neck Interpreted and Authenticated by: Girma Morris 09/26/17
--- NOTE | 2017-09-26 08:53 | XRay Report ---
HISTORY: Reason for Exam:R rib pain after a fall FINDINGS: Heart is moderately enlarged. There is mild pulmonary vascular congestion. The cardiomegaly has remained stable since 12/04/16. The pulmonary vascular congestion is a new finding. The consolidation which was seen medially in left lower lobe on the prior study has resolved. No pleural effusion or pneumothorax are present. There are subtle contour deformities anterolaterally in the right fifth, sixth, seventh and ninth ribs. These appear to be fractures but are of undetermined age. No displaced rib fracture is present. 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 There is also arthritis and scoliosis in the thoracic spine. IMPRESSION: Cardiomegaly with pulmonary vascular congestion Subtle nondisplaced right-sided rib fractures, of undetermined age Dr. Carey was called with results Interpreted and Authenticated by: Girma Morris 09/26/17
[2017-09-26] MEDS: 0.9 % SODIUM CHLORIDE 10 ML SYRINGE IV SCH ×2 (10:00→15:16)
[2017-09-26] MEDS: FUROSEMIDE 20 MG TABLET PO SCH (10:12)
[2017-09-26] MEDS: METOPROLOL TARTRATE 50 MG TABLET PO SCH (10:12)
[2017-09-26] MEDS: METOPROLOL SUCCINATE 25 MG TAB.XL.24H PO SCH (10:13)
[2017-09-26] MEDS ORDERED: GENTAMICIN SULFATE 800 MG/20 ML VIAL IR ONE (10:45)
[2017-09-26] MEDS ORDERED: DEXAMETHASONE 10 MG/ML VIAL IV ONE (11:30)
[2017-09-26] MEDS ORDERED: PROPOFOL 200 MG/20 ML VIAL IV ONE (11:30)
[2017-09-26] MEDS ORDERED: MIDAZOLAM 2 MG/2 ML VIAL IV ONE (11:30)
[2017-09-26] MEDS ORDERED: fentaNYL 250 MCG/5 ML VIAL IV ONE (11:30)
[2017-09-26] MEDS ORDERED: PHENYLEPHRINE 10 MG/ML VIAL IV ONE (11:30)
[2017-09-26] MEDS ORDERED: HYDROmorphone 2 MG/ML SYRINGE IV ONE (11:30)
[2017-09-26] MEDS ORDERED: KETAMINE 100 MG/ML ML IV ONE (11:30)
[2017-09-26] MEDS ORDERED: ONDANSETRON 4 MG/2 ML VIAL IV ONE (11:30)
[2017-09-26] MEDS ORDERED: TRANEXAMIC ACID 1,000 MG/10 ML VIAL IV ONE ×2 (11:30→12:40)
[2017-09-26] MEDS ORDERED: LIDOCAINE HCL/PF 100 MG/5 ML SYRINGE IV ONE (11:30)
[2017-09-26] MEDS ORDERED: HYDROmorphone 2 MG/ML SYRINGE IV PRN (12:06)
[2017-09-26] MEDS ORDERED: fentaNYL 100 MCG/2 ML VIAL IV PRN (12:06)
[2017-09-26] MEDS ORDERED: ONDANSETRON 4 MG/2 ML VIAL IV PRN ×2 (12:06→12:40)
[2017-09-26] MEDS ORDERED: PROMETHAZINE 25 MG/ML VIAL IV PRN (12:06)
[2017-09-26] MEDS ORDERED: NALOXONE HCL 0.4 MG/ML VIAL IV PRN (12:06)
[2017-09-26] MEDS ORDERED: IPRATROPIUM/ALBUTEROL 3 ML AMPUL.NEB NEB PRN (12:06)
[2017-09-26] MEDS ORDERED: PROMETHAZINE 25 MG/ML VIAL IM PRN (12:06)
[2017-09-26] MEDS ORDERED: ePHEDrine 50 MG/ML AMPUL IV PRN (12:06)
[2017-09-26] MEDS ORDERED: MEPERIDINE 50 MG/ML SYRINGE IM PRN (12:06)
[2017-09-26] MEDS ORDERED: METHOCARBAMOL 1,000 MG/10 ML VIAL IV PRN (12:06)
[2017-09-26] MEDS ORDERED: BENZOCAINE/MENTHOL 1 LOZENGE PO PRN ×2 (12:06→12:40)
[2017-09-26] MEDS ORDERED: LACTATED RINGERS 250 ML IV PRN (12:06)
[2017-09-26] MEDS ORDERED: diphenhydrAMINE 50 MG/ML VIAL IV PRN (12:06)
[2017-09-26] MEDS ORDERED: FLUMAZENIL 0.1 MG/ML ML IV PRN (12:06)
[2017-09-26] MEDS ORDERED: LACTATED RINGERS 1,000 ML IV SCH (12:15)
[2017-09-26] MEDS ORDERED: ONDANSETRON ODT 4 MG TABLET SL PRN (12:40)
[2017-09-26] MEDS ORDERED: MAGNESIUM HYDROXIDE 30 ML ORAL.SUSP PO PRN (12:40)
[2017-09-26] MEDS ORDERED: BISACODYL 10 MG SUPP.RECT PR PRN (12:40)
[2017-09-26] MEDS ORDERED: TEMAZEPAM 15 MG CAPSULE PO PRN (12:40)
[2017-09-26] MEDS ORDERED: FLEETS ADULT ENEMA PR PRN (12:40)
--- NOTE | 2017-09-26 12:40 | Brief Operative Note ---
Date of procedure: 09/26/17 Pre-op diagnosis: right hip neck Post-op diagnosis: same Procedure: Right hip fx carolyne arthroplasty Grafts/Implants: Yes Anesthesia: GETA Complications Description: 09/26/17 12:40 none Surgeon: Abran Brannon Contract Clerk Automobile: Christopher Delarosa Estimated blood loss (cc): 150 Specimens Removed/Pathology: none sent Condition: stable Disposition: PACU
[2017-09-26] MEDS ORDERED: LORazepam 0.5 MG TABLET PO PRN (12:46)
[2017-09-26] MEDS ORDERED: 0.9 % SODIUM CHLORIDE 10 ML SYRINGE IV SCH (14:00)
[2017-09-26] MEDS: 0.45 % SODIUM CHLORIDE 1,000 ML IV SCH (14:40)
--- NOTE | 2017-09-26 14:56 | XRay Report ---
HISTORY: Reason for Exam:Post-op Total Hip Right hip fracture FINDINGS: There is a well-positioned right hip prosthesis. No new fracture has developed. The bones are osteopenic. IMPRESSION: Well-positioned right hip prosthesis Interpreted and Authenticated by: Girma Morris 09/26/17
[2017-09-26] MEDS: VITAMIN D3 1,000 UNIT TABLET PO SCH (15:19)
[2017-09-26] MEDS: FINASTERIDE 5 MG TABLET PO SCH (15:19)
[2017-09-26] MEDS: SERTRALINE 50 MG TABLET PO SCH (15:19)
[2017-09-26] MEDS: FAMOTIDINE 20 MG TABLET PO SCH ×2 (15:19→21:18)
[2017-09-26] MEDS: ACETAMINOPHEN 325 MG TABLET PO SCH (16:56)
[2017-09-26] MEDS: ceFAZolin 1 GM VIAL IV SCH (19:45)
[2017-09-26] MEDS: FISH OIL 1,000 MG CAPSULE PO SCH (21:16)
[2017-09-26] MEDS: DOCUSATE SODIUM 100 MG CAPSULE PO SCH (21:16)
[2017-09-26] MEDS: SPIRONOLACTONE 25 MG TABLET PO SCH (21:16)
[2017-09-26] MEDS: NITROGLYCERIN 0.3 MG/HR PATCH TOPICAL SCH (21:17)
[2017-09-26] MEDS: APIXABAN 2.5 MG TABLET PO SCH (21:17)
[2017-09-26] MEDS: METOPROLOL SUCCINATE 50 MG TAB.XL.24H PO SCH (21:18)
[2017-09-26] MEDS: ALLOPURINOL 100 MG TABLET PO SCH (21:18)
[2017-09-26] MEDS: SENNOSIDES 1 TABLET PO SCH (21:18)
[2017-09-26] MEDS: MIRTAZAPINE 15 MG TABLET PO SCH (21:18)
[2017-09-27] MEDS: 0.45 % SODIUM CHLORIDE 1,000 ML IV SCH ×3 (00:43→20:33)
[2017-09-27] MEDS: ceFAZolin 1 GM VIAL IV SCH (03:31)
[2017-09-27] MEDS: ACETAMINOPHEN 325 MG TABLET PO SCH ×3 (06:38→14:43)
[2017-09-27] MEDS: SPIRONOLACTONE 25 MG TABLET PO SCH ×2 (08:49→20:37)
[2017-09-27] MEDS: DOCUSATE SODIUM 100 MG CAPSULE PO SCH ×2 (08:49→20:32)
[2017-09-27] MEDS: SERTRALINE 50 MG TABLET PO SCH (08:50)
[2017-09-27] MEDS: FAMOTIDINE 20 MG TABLET PO SCH ×2 (08:50→20:31)
[2017-09-27] MEDS: FINASTERIDE 5 MG TABLET PO SCH (08:51)
[2017-09-27] MEDS: LISINOPRIL 10 MG TABLET PO SCH (08:51)
[2017-09-27] MEDS: FUROSEMIDE 20 MG TABLET PO SCH (08:51)
[2017-09-27] MEDS: METOPROLOL SUCCINATE 50 MG TAB.XL.24H PO SCH ×2 (08:51→20:32)
[2017-09-27] MEDS: VITAMIN D3 1,000 UNIT TABLET PO SCH (08:51)
[2017-09-27] MEDS: ALLOPURINOL 100 MG TABLET PO SCH ×2 (08:51→20:32)
[2017-09-27] MEDS: FISH OIL 1,000 MG CAPSULE PO SCH ×2 (08:51→20:32)
[2017-09-27] MEDS: APIXABAN 2.5 MG TABLET PO SCH ×2 (08:52→21:37)
[2017-09-27] MEDS: NITROGLYCERIN 0.3 MG/HR PATCH TOPICAL SCH ×2 (08:52→20:42)
[2017-09-27] MEDS: ZINC PO SCH (08:53)
[2017-09-27] MEDS: VIT E PO SCH (08:53)
[2017-09-27] MEDS: COPPER PO SCH (08:53)
[2017-09-27] MEDS: VIT C PO SCH (08:53)
[2017-09-27] MEDS: VIT A PO SCH (08:53)
--- NOTE | 2017-09-27 10:51 | Operative Note ---
DATE OF OPERATION: 09/25/2017 PREOPERATIVE DIAGNOSIS: Right hip femoral neck fracture, displaced. POSTOPERATIVE DIAGNOSIS: Right hip femoral neck fracture, displaced. PROCEDURE: Right hip cemented hemiarthroplasty for hip fracture. SURGEON: Abran Brannon MD LICENSED PRACTICAL NURSE: Dexter Delarosa PA-C. ANESTHESIA: General LMA anesthesia. COMPLICATIONS: None. DESCRIPTION OF PROCEDURE: The patient was brought to the operating room and put to sleep with general LMA anesthesia. Once asleep, the patient had the right hip sterilely prepped and draped in the usual sterile fashion. Once confirmed as the operative site and preop antibiotics were given and tranexamic acid given, the patient then had a superior posterior approach made. Ioban had been placed over the skin. Once we dissected through the skin and placed a superior posterior approach the Charnley retractor was placed. We then exposed the fracture site, dislocated the hip and removed the ball from the socket and made the neck cut flush about 12 mm proximal to the lesser trochanter. Once this was done, the ball was removed, ligament removed and any debris in the hip joint was removed. We then broached up to the size 6, trialed a size 6 with a neutral and a +5 head with extended neck. This seemed to be the most appropriate giving about a half fingerbreadth length. We then cemented into place by putting a canal restrictor, 12 mm centralizer on the end of the stem, a size 6 stem was cemented into place. Once this was done, we then placed the stem in about 15 degrees of anteversion and placed the +5 neck length with a 56 mm head. Once this was done, we then reduced the hip. The hip was stable throughout the arc of motion and we repaired the capsule superior posteriorly with #2 Ethibond, closed the skin with StrataFix #1. We closed the skin with 2-0 Vicryls and anna. Sterile bandage applied. Abduction pillow applied. There was no complication. Blood loss about 150 mL. RBH:pretty Job ID: [id number] Doc ID: [id number] Abran Brannon MD
[2017-09-27] MEDS: HYDROCODONE/APAP 7.5/325MG TABLET PO PRN ×3 (13:09→20:31)
[2017-09-27] MEDS: POLYETHYLENE GLYCOL 3350 17 GM PACKET PO PRN (15:05)
--- NOTE | 2017-09-27 15:31 | Orthopedic Progress Note ---
Subjective Patient information: Note initiated : 09/27/17 at 3:29 pm Service Date, if different from initiated Date: [] Patient: Edson Calixto 87 y/o M admitted on 09/25/17 for R Hip Pain r/t Fall /Right Hip Fracture. Chief Complaint: [] feeling better and walking 50 feet and minimal pain. no cp no sob. Objective Vital signs: Vital Signs Temp Pulse Pulse Resp BP Pulse Ox 09/27/17 11:36 97.4 F 80 14 125/81 95 09/27/17 08:47 70 16 94 09/27/17 08:00 94 09/27/17 07:38 16 97 09/27/17 07:33 97.3 F 74 16 138/88 97 09/27/17 03:42 97.4 F 79 17 133/94 94 09/26/17 23:58 96.8 F L 70 17 101/66 95 09/26/17 20:00 97.7 F 72 16 108/71 95 09/26/17 19:38 94 09/26/17 17:30 71 14 127/82 96 09/26/17 16:30 75 14 133/84 94 09/26/17 16:00 76 14 133/88 93 09/26/17 15:45 76 12 133/88 93 09/26/17 15:30 70 14 143/94 97 Intake and Output 09/27/17 09/27/17 09/27/17 05:59 13:59 21:59 Intake Total 1050 / 1050 1620 / 1620 118 / 118 Output Total 225 / 225 175 / 175 Balance 825 / 825 1445 / 1445 118 / 118 Intake: IV 1000 / 1000 Sodium Chloride 0.45% 1,000 ml 1000 / 1000 @ 100 mls/hr IV .Q10H GRIS Rx#: [id number] Oral 50 / 50 1620 / 1620 118 / 118 Output: Urine Catheter Amount 225 / 225 175 / 175 Other: Meal Lunch Percent of Meal Consumed 75% Feeding Ability Independent # Bowel Movements 1 Weight 167 lb 8 oz Patient Weight 09/28/17 05:59 Weight 167 lb 8 oz Intake & Output: Intake & Output 09/27/17 09/27/17 09/27/17 05:59 13:59 21:59 Intake Total 1050 / 1050 1620 / 1620 118 / 118 Output Total 225 / 225 175 / 175 Balance 825 / 825 1445 / 1445 118 / 118 Weight 167 lb 8 oz Intake: IV 1000 / 1000 Sodium Chloride 0.45% 1,000 ml 1000 / 1000 @ 100 mls/hr IV .Q10H GRIS Rx#: [id number] Oral 50 / 50 1620 / 1620 118 / 118 Output: Urine Catheter Amount 225 / 225 175 / 175 Other: Meal Lunch Percent of Meal Consumed 75% Feeding Ability Independent # Bowel Movements 1 Incision: Yes healing Incision clean and dry: Yes Dressing: Yes clean Weight bearing status: full Neurological exam IM: Yes oriented X3, Yes neurovascular intact Extremities exam IM: Yes pedal edema, Yes Foot pink and warm (dc home tomorrow) - Labs CBC & BMP: 09/27/17 04:18 09/25/17 17:55 Labs: Orthopedic Labs 09/26/17 04:20 PT 16.2 H INR 1.3 H 09/27/17 09/25/17 04:18 17:58 Hgb 13.5 Hct 33.8 L 40.5 L
[2017-09-27] MEDS ORDERED: ACETAMINOPHEN 325 MG TABLET PO PRN (16:45)
[2017-09-27] MEDS: MIRTAZAPINE 15 MG TABLET PO SCH (20:32)
[2017-09-27] MEDS: SENNOSIDES 1 TABLET PO SCH (20:32)
[2017-09-27] MEDS: 0.9 % SODIUM CHLORIDE 10 ML SYRINGE IV SCH (20:32)
[2017-09-28] MEDS: 0.45 % SODIUM CHLORIDE 1,000 ML IV SCH (06:13)
--- NOTE | 2017-09-28 08:08 | Discharge Summary ---
Ortho Discharge - [facility] - Patient Instructions Diet: Regular Diet Activity: activity as tolerated, weight bearing as tolerated Total Hip Protocol: Follow activity instructions as provided by Physical Therapy. Dressing Care: Neptali Ag - leave on for 5 days Patient Education: Total Hip Replacement (DC) - Follow Up Plan Follow Up Appointments: Tashi Pitt MD [Primary Care Provider] - Disposition: Home Health Service Prognosis: Fair Rehab Potential: Good I certify that the patient requires SNF services: Yes Overall status at discharge: patient is progressing back to baseline - Orders For Discharge Additional Discharge Orders: Physical Therapy at Discharge - [facility] Location: Determined By Patient Physical Therapy at Discharge - [facility] Location: Determined By Patient Toilet Riser Discharge Order Location: Determined By Patient Walker Location: Determined By Patient
[2017-09-28] MEDS ORDERED: TORSEMIDE 10 MG TABLET PO SCH (09:00)
[2017-09-28] MEDS: SPIRONOLACTONE 25 MG TABLET PO SCH (09:45)
[2017-09-28] MEDS: FUROSEMIDE 20 MG TABLET PO SCH (09:46)
[2017-09-28] MEDS: FISH OIL 1,000 MG CAPSULE PO SCH (09:46)
[2017-09-28] MEDS: FINASTERIDE 5 MG TABLET PO SCH (09:46)
[2017-09-28] MEDS: DOCUSATE SODIUM 100 MG CAPSULE PO SCH (09:46)
[2017-09-28] MEDS: ALLOPURINOL 100 MG TABLET PO SCH (09:46)
[2017-09-28] MEDS: LISINOPRIL 10 MG TABLET PO SCH (09:46)
[2017-09-28] MEDS: APIXABAN 2.5 MG TABLET PO SCH (09:46)
[2017-09-28] MEDS: NITROGLYCERIN 0.3 MG/HR PATCH TOPICAL SCH (09:46)
[2017-09-28] MEDS: FAMOTIDINE 20 MG TABLET PO SCH (09:46)
[2017-09-28] MEDS: VITAMIN D3 1,000 UNIT TABLET PO SCH (09:46)
[2017-09-28] MEDS: SERTRALINE 50 MG TABLET PO SCH (09:46)
[2017-09-28] MEDS: METOPROLOL SUCCINATE 50 MG TAB.XL.24H PO SCH (09:46)
[2017-09-28] MEDS: VIT A PO SCH (09:47)
[2017-09-28] MEDS: COPPER PO SCH (09:47)
[2017-09-28] MEDS: VIT E PO SCH (09:47)
[2017-09-28] MEDS: VIT C PO SCH (09:47)
[2017-09-28] MEDS: ZINC PO SCH (09:47)
[2017-09-28] MEDS: HYDROCODONE/APAP 7.5/325MG TABLET PO PRN (09:56)
[2017-09-28] MEDS: POLYETHYLENE GLYCOL 3350 17 GM PACKET PO PRN (09:57)
== END 2017-09-28 15:45 | disposition home health service (06) | DRG 470 ==
LOC: ED 16:04 → MEDSUR 21:00
PROVIDERS: ADMIT Orthopaedic Surgery; ATTEND Orthopaedic Surgery
PROC: HEMIHIP (2017-09-26 11:28)